=== PATIENT | male | born 1950 | race African-American/Black ===

== ENCOUNTER 2018-06-14 11:09 | Emergency (ER) | payer MEDICARE ==
[2018-06-14 12:10] LABS: #Lymphocytes 0.7 thou/uL (1.20-3.40); #Monocytes 0.3 thou/uL (0.11-0.59); %Basophils 0.1 % (0.0-1.0); %Eosinophils 0.2 % (0.0-10.0); %Lymphocytes 7.2 % (21.0-51.0); %Monocytes 2.8 % (0.0-10.0); %Neutrophils 89.7 % (42.0-75.0); Mean Corpuscular HGB CONC 32.2 g/dL (32.0-36.0); Mean Corpuscular Hemoglobin 26.9 pg (27.0-31.0); Mean Corpuscular Volume 83.3 fL (78.0-98.0); Mean Platelet Volume 7.9 fL (7.4-10.4); Platelet Count 243 thou/uL (130-400); RBC Distribution Width 12.9 % (11.5-14.5); Red Blood Cell (RBC) Count 4.45 mill/uL (4.70-6.10)
[2018-06-14 12:15] LABS: INR-International Normal Ratio 1.5; PTT 32.9 SEC (22.9-36.1)
[2018-06-14 12:31] LABS: ALT (SGPT) 11 U/L (8-55); AST (SGOT) 16 U/L (5-34); Albumin 3.9 g/dL (3.4-4.8); Alkaline Phosphatase 72 U/L (40-150); Anion Gap 18 mmol/L (10-20); BUN (Urea Nitrogen) 29 mg/dL (8.4-25.7); Bilirubin, Total 0.4 mg/dL (0.2-1.2); Calc. Creatinine Clearance 0 mL/min (70-130); Calcium 9.6 mg/dL (7.8-10.44); Carbon Dioxide 23 mmol/L (23-31); Chloride 98 mmol/L (98-107); Estimated GFR-MDRD 64; Globulin 3.2 g/dL (2.4-3.5); Glucose 108 mg/dL (80-115); Potassium 3.3 mmol/L (3.5-5.1); Protein, Total 7.1 g/dL (5.8-8.1); Sodium 136 mmol/L (136-145)
== END 2018-06-14 15:47 ==
LOC: ERS 11:09
DX: K59.00 Constipation, unspecified (principal); Z86.73 Personal history of transient ischemic attack (TIA), and cerebral infarction without residual deficits; I48.91 Unspecified atrial fibrillation; F32.9 Major depressive disorder, single episode, unspecified; Z87.891 Personal history of nicotine dependence; Z79.899 Other long term (current) drug therapy
CPT/HCPCS: 36415; 80053; 82274; 85025; 85610; 85730; 99285

== ENCOUNTER 2018-06-20 20:33 | Inpatient (IN) | payer MEDICARE ==
[2018-06-20 21:37] LABS: #Eosinphils 0.1 thou/uL (0.0-0.7); #Lymphocytes 1.5 thou/uL (1.20-3.40); #Monocytes 0.9 thou/uL (0.11-0.59); #Neutrophils 9.9 thou/uL (1.40-6.50); %Basophils 0.4 % (0.0-1.0); %Eosinophils 0.5 % (0.0-10.0); %Lymphocytes 12.4 % (21.0-51.0); %Monocytes 6.9 % (0.0-10.0); %Neutrophils 79.8 % (42.0-75.0); Hemoglobin 8.2 g/dL (14.0-18.0); Mean Corpuscular HGB CONC 32.5 g/dL (32.0-36.0); Mean Corpuscular Hemoglobin 27.5 pg (27.0-31.0); Mean Corpuscular Volume 84.4 fL (78.0-98.0); Mean Platelet Volume 9.2 fL (7.4-10.4); Platelet Count 307 thou/uL (130-400); Red Blood Cell (RBC) Count 2.99 mill/uL (4.70-6.10); White Blood Cell (WBC) Count 12.4 thou/uL (4.8-10.8)
[2018-06-20 21:59] LABS: ALT (SGPT) 10 U/L (8-55); AST (SGOT) 15 U/L (5-34); Albumin 3.2 g/dL (3.4-4.8); Alkaline Phosphatase 62 U/L (40-150); Anion Gap 17 mmol/L (10-20); BUN (Urea Nitrogen) 44 mg/dL (8.4-25.7); Bilirubin, Total 0.4 mg/dL (0.2-1.2); Calc. Creatinine Clearance 0 mL/min (70-130); Calcium 8.7 mg/dL (7.8-10.44); Carbon Dioxide 23 mmol/L (23-31); Chloride 101 mmol/L (98-107); Estimated GFR-MDRD 74; Globulin 2.8 g/dL (2.4-3.5); Glucose 109 mg/dL (80-115); Potassium 4.1 mmol/L (3.5-5.1); Sodium 137 mmol/L (136-145)
[2018-06-20] MEDS ORDERED: Pantoprazole 40 MG VIAL ONE (22:05)
[2018-06-20] MEDS ORDERED: Lorazepam 2 MG/ML VIAL ONE ×3 (22:05→22:58)
[2018-06-20] MEDS ORDERED: Lidocaine 4% Cream 5 GM TUBE w/ Tegaderm ONE (22:06)
[2018-06-20] MEDS ORDERED: Pantoprazole 80 MG, Admixture Fee 1 EACH in Sodium Chloride 0.9% 100 ML IVP SCH (22:30)
--- NOTE | 2018-06-20 22:34 | RAD ---
PORTABLE CHEST: HISTORY: Atrial fibrillation. FINDINGS: Heart size is enlarged. The aorta is tortuous. The lungs are clear of infiltrates. There are no si gns of failure. IMPRESSION: Marked cardiomegaly. POS: MACIE
[2018-06-20 23:10] LABS: INR-International Normal Ratio 1.6; PTT 31.1 SEC (22.9-36.1); Prothrombin Time 18.8 SEC (12.0-14.7)
[2018-06-20] MEDS ORDERED: Diltiazem 125 MG in Sodium Chloride 0.9% 100 ML IVPB SCH (23:30)
[2018-06-21 00:38] LABS: #Eosinphils 0.1 thou/uL (0.0-0.7); #Lymphocytes 3.5 thou/uL (1.20-3.40); #Monocytes 0.8 thou/uL (0.11-0.59); #Neutrophils 10.7 thou/uL (1.40-6.50); %Basophils 0.2 % (0.0-1.0); %Eosinophils 0.5 % (0.0-10.0); %Lymphocytes 23.1 % (21.0-51.0); %Monocytes 5.4 % (0.0-10.0); %Neutrophils 70.9 % (42.0-75.0); Hemoglobin 6.2 g/dL (14.0-18.0); Mean Corpuscular HGB CONC 33.4 g/dL (32.0-36.0); Mean Corpuscular Hemoglobin 28.1 pg (27.0-31.0); Mean Platelet Volume 8.1 fL (7.4-10.4); Platelet Count 305 thou/uL (130-400); RBC Distribution Width 12.7 % (11.5-14.5); Red Blood Cell (RBC) Count 2.22 mill/uL (4.70-6.10); White Blood Cell (WBC) Count 15.1 thou/uL (4.8-10.8)
[2018-06-21] MEDS ORDERED: HUMAN PROTHROMBIN COMPLX IV SCH (02:00)
--- NOTE | 2018-06-21 02:32 | CON ---
DATE OF CONSULTATION: REASON FOR CONSULT: Coffee-grounds emesis, drop in hemoglobin. HISTORY OF PRESENT ILLNESS: Mr. Santoyo is a 67-year-old gentleman who is transferred here from his snf for coffee-ground emesis, for possible GI bleeding. History comes from review of the chart, talking with the nurses and physicians in the ER, reviewing his records that were sent from the snf. The patient is aphasic and there are no family members or any other members to give any history. Mr. Santoyo apparently suffered a large CVA in 03/2018 in [place] I think, I cannot tell from the records, but in any event, he apparently received tPA at that time and had left MCA stroke with a SARI at that time showing EF of 40% to 45% and he had atrial fibrillation, this is all felt to be related to his atrial fibrillation. Ultimately, he had a PEG tube placed at that time, where 30-mm submucosal lesion was noted in the antrum that apparently was not bleeding, he was going to follow up with a furniture assembly supervisor. He discovered that after discharge, but has not, at least according to the records received. He did have an issue with cellulitis and he was intubated for a time for airway protection and ultimately at some point in time after going to rehab, was discharged to his snf. He first was seen at this facility on 06/14 when he was transferred for coffee-grounds emesis. At that time, he was on acetaminophen, amantadine, Eliquis, amlodipine, atorvastatin. Rectal exam was stable. Plain films showing no overt abnormalities, discharged to follow up with PCP and was diagnosed with constipation, likely until was not started on a PPI at that time. At that visit, his hemoglobin was 12. Reviewing the records from [place], he had a hemoglobin of 12.5 in March. Apparently this evening, reviewing the records from his snf, he was admitted there on 05/11. Here, he presented and was noted to be tachycardic and hypotensive in the 80s with pulse in the 170s and was found to be in atrial fibrillation, coffee-grounds emesis in his NG tube. He has had no further vomiting here and has no bowel movements. His hemoglobin, however, dropped to 8.2 from 12 on the . His white count was 12.4, platelet count was 307. INR was 1.6; BUN was 44, it was up from 29; creatinine was 1.9. Electrolytes were normal. Albumin was 3.2, protein was 6, his albumin was 3.9 previously. Troponin was 0.01. He was resuscitated with a 1.5 liter of fluids. His pressures stabilized in the 120s. He has been started on Cardizem and given medicines to decrease his heart rate, it still in the 160s. He is being admitted to the ICU. He has had no further signs of bleeding here. The patient is aphasic, can nod yes and no to questions such as abdominal pain, chest pain and nods no to both of those. PAST MEDICAL HISTORY: CVA, atrial fibrillation, hypertension, oropharyngeal dysphagia after stroke, for which he has had a PEG tube placed. PAST SURGICAL HISTORY: None otherwise. SOCIAL HISTORY: Former alcohol use, but has not drank for 30 years. Apparently used to smoke as well. On previous ER H and P notes, he has never used drugs. He can answer the question for me today. ALLERGIES: NONE KNOWN. MEDICATIONS: Medications at snf and rehab facility include; 1. MiraLAX. 2. Magnesium citrate. 3. Tylenol No.3 p.r.n. 4. Atorvastatin. 5. Melatonin. 6. Clonidine. 7. Buspirone. 8. Sertraline. 9. Amlodipine. 10. Lactobacillus. 11. Losartan. 12. Amantadine. 13. Apixaban. 14. Metoprolol. 15. Bisacodyl p.r.n. REVIEW OF SYSTEMS: Unable to obtain. PHYSICAL EXAMINATION: VITAL SIGNS: The patient is afebrile. Pulse is in the 160s and irregular with atrial fibrillation. Blood pressure is 120/60 presently. HEENT: His conjunctivae are pink. Sclerae clear. Oropharynx, no lesions. NECK: Supple. No adenopathy. LUNGS: Clear. HEART: Irregular rate and rhythm with tachycardia. No murmurs are heard. ABDOMEN: Soft, nontender with no bruits. Bowel sounds are positive, but hyperactive. There is no rebound or tenderness with no evidence of hernias. There is no palpable hepatosplenomegaly. The PEG tube is in place. There is some coffee-ground return there. EXTREMITIES: No clubbing, cyanosis, or edema. LABORATORY STUDIES: As per HPI. Chest x-ray shows marked cardiomegaly. ASSESSMENT: 1. Coffee-grounds emesis, not ongoing with significant drop in hemoglobin and elevated BUN suggestive of upper gastrointestinal bleed. He did have a submucosal mass on his EGD in [place] back in March and wonders if this could have eroded and bled. There are no signs of hemodynamic instability at this time. 2. Atrial fibrillation with rapid ventricular rate, still heart rate in the 160s. ER is working on improving this with medical management. He has ruled out for myocardial infarction at this time. He has a large heart on chest x-ray, but had a SARI with ejection fraction of 40% to 45% back in March. Recommendations at this time his atrial fibrillation needs to be controlled, he is going to receive some Kcentra as he is on anticoagulation, although not sure if this has had much effect. His renal function is stable with a GFR of 74, so it should not be an issue for Biaxin and toxicity. We will recommend PPI therapy either q.12 hours or via drip. If his hemoglobin were to drop below 7.5, I will consider transfusion in light of his history of cerebrovascular accident, unknown coronary status and aphasia with inability to tell if he is having any chest pain or pressure. We will plan endoscopy in the morning if there is any overt acute hemorrhage, we could embark on that earlier. We will follow along with you. Job ID: [id number]
[2018-06-21 08:13] LABS: #Basophils 0.1 thou/uL (0.0-0.2); #Eosinphils 0.1 thou/uL (0.0-0.7); #Monocytes 1.3 thou/uL (0.11-0.59); #Neutrophils 10.8 thou/uL (1.40-6.50); %Basophils 0.5 % (0.0-1.0); %Eosinophils 0.4 % (0.0-10.0); %Lymphocytes 19.8 % (21.0-51.0); %Monocytes 8.5 % (0.0-10.0); %Neutrophils 70.8 % (42.0-75.0); Hemoglobin 8.1 g/dL (14.0-18.0); Mean Corpuscular HGB CONC 33.8 g/dL (32.0-36.0); Mean Corpuscular Hemoglobin 29.3 pg (27.0-31.0); Mean Corpuscular Volume 86.6 fL (78.0-98.0); Mean Platelet Volume 7.9 fL (7.4-10.4); Platelet Count 264 thou/uL (130-400); RBC Distribution Width 13.6 % (11.5-14.5); Red Blood Cell (RBC) Count 2.77 mill/uL (4.70-6.10); White Blood Cell (WBC) Count 15.3 thou/uL (4.8-10.8)
[2018-06-21 08:38] LABS: Anion Gap 13 mmol/L (10-20); BUN (Urea Nitrogen) 56 mg/dL (8.4-25.7); Calc. Creatinine Clearance 0 mL/min (70-130); Calcium 8.1 mg/dL (7.8-10.44); Carbon Dioxide 23 mmol/L (23-31); Chloride 105 mmol/L (98-107); Estimated GFR-MDRD 73; Glucose 102 mg/dL (80-115); Potassium 3.7 mmol/L (3.5-5.1); Sodium 137 mmol/L (136-145)
[2018-06-21] MEDS ORDERED: KETAMINE 100 MG/ML (5ML VIAL) ONE (09:34)
[2018-06-21] MEDS ORDERED: Propofol 1,000 MG/100 ML VIAL IV PRN (10:50)
[2018-06-21] MEDS ORDERED: Fentanyl BOLUS 250 ML IVPB PRN (10:50)
[2018-06-21] MEDS ORDERED: Morphine 2 MG/ML SYRINGE SLOW IVP PRN (10:50)
[2018-06-21] MEDS ORDERED: Lorazepam 2 MG/ML VIAL SLOW IVP PRN (10:50)
[2018-06-21] MEDS ORDERED: DISCONTINUE PREVIOUS NARCOTIC PAIN MEDICATIONS AND BENZODIAZEPINES FS SCH (10:50)
[2018-06-21] MEDS ORDERED: Propofol BOLUS 1,000 MG/100 ML VIAL IV PRN (10:50)
[2018-06-21] MEDS ORDERED: fentaNYL Citrate/PF 2,000 MCG in Sodium Chloride 0.9% 60 ML IV SCH (10:50)
[2018-06-21] MEDS ORDERED: Morphine 4 MG/ML VIAL SLOW IVP PRN (10:51)
[2018-06-21] MEDS ORDERED: Fentanyl 100 MCG/2 ML VIAL ONE (11:27)
[2018-06-21 12:25] LABS: Actual Bicarbonate (HCO3a) 23.4 mEq/L (22-28); Base Excess (BEa) -1.7 mEq/L (-2.0 to +3.0); CO2 Tension 41.3 mmHg (35.0-45.0); Calcium, Ionized 1.03 mmol/L (1.12-1.30); Carboxyhemoglobin (COHb) 1.6 gm% (0.0-3.0); O2 Tension (PaO2) 102.1 mmHg (> 80.0); Potassium - ABG Lab 3.41 mmol/L (3.70-5.30); pH, Arterial 7.37 (7.35-7.45)
[2018-06-21] MEDS ORDERED: Metoprolol Tartrate 5 MG/5 ML VIAL ONE ×2 (12:26→15:47)
[2018-06-21 12:28] LABS: Puncture Site ALINE
[2018-06-21 12:29] LABS: ALV-art Gradient 131.475 (0-20)
[2018-06-21 12:46] VITALS: TEMP 97.9
[2018-06-21 13:01] LABS: Magnesium 1.9 mg/dL (1.6-2.6); Phosphorus 3.7 mg/dL (2.3-4.7)
[2018-06-21 13:48] VITALS: BP 136/67
[2018-06-21 16:10] LABS: Hemoglobin 7.8 g/dL (14.0-18.0); Mean Corpuscular HGB CONC 33.5 g/dL (32.0-36.0); Mean Corpuscular Hemoglobin 29.3 pg (27.0-31.0); Mean Corpuscular Volume 87.3 fL (78.0-98.0); Mean Platelet Volume 7.6 fL (7.4-10.4); Platelet Count 252 thou/uL (130-400); RBC Distribution Width 13.3 % (11.5-14.5); Red Blood Cell (RBC) Count 2.65 mill/uL (4.70-6.10); White Blood Cell (WBC) Count 18.3 thou/uL (4.8-10.8)
[2018-06-21 16:18] LABS: PT - Undiluted 15.9 SEC (12.0-14.7); PTT - Undiluted 29.8 SEC (22.9-36.1)
[2018-06-21] MEDS ORDERED: PHENYLEPHRINE-NS 100 MCG/ML 10 ML SYRINGE ONE (16:18)
[2018-06-21] MEDS ORDERED: EPINEPHrine 1 MG/10 ML Abboject SYRINGE ONE (16:18)
[2018-06-21] MEDS ORDERED: Succinylcholine Chloride 20 MG/ML 10 ml SYRINGE FS ONE (16:18)
[2018-06-21 16:22] LABS: ALT (SGPT) 11 U/L (8-55); AST (SGOT) 12 U/L (5-34); Albumin 2.9 g/dL (3.4-4.8); Alkaline Phosphatase 45 U/L (40-150); Anion Gap 13 mmol/L (10-20); BUN (Urea Nitrogen) 54 mg/dL (8.4-25.7); Bilirubin, Total 0.4 mg/dL (0.2-1.2); Calc. Creatinine Clearance 0 mL/min (70-130); Calcium 7.8 mg/dL (7.8-10.44); Carbon Dioxide 24 mmol/L (23-31); Chloride 106 mmol/L (98-107); Estimated GFR-MDRD 64; Globulin 2.3 g/dL (2.4-3.5); Glucose 125 mg/dL (80-115); Potassium 3.6 mmol/L (3.5-5.1); Protein, Total 5.2 g/dL (5.8-8.1); Sodium 139 mmol/L (136-145)
[2018-06-21 16:31] LABS: Anisocytosis SLIGHT = 6-15 cells (100X) (0-5/hpf); Band 3 % (5-11); Lymphocytes 3 % (21-51); MDiff Complete? YES; Monocytes 2 % (0-10); Neutrophil 92 % (42-75); PLT Morphology Comment Appears Adequate
[2018-06-21] MEDS ORDERED: Metoprolol Tartrate 5 MG/5 ML VIAL IVP PRN (16:39)
[2018-06-21] MEDS ORDERED: Metoprolol Tartrate 5 MG/5 ML VIAL IVP SCH (17:00)
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
[2018-06-21 18:15] LABS: PT 1:1 37C-90 min. Incubation 14.2 SEC; PTT 1:1 37C/90 MIN Incubation 30.2 SEC
--- NOTE | 2018-06-22 16:20 | OP ---
DATE OF PROCEDURE: 06/21/2018 PROCEDURES PERFORMED: Esophagogastroduodenoscopy. PRE-PROCEDURE DIAGNOSIS: Suspected upper gastrointestinal hemorrhage. POSTPROCEDURE DIAGNOSES: Upper gastrointestinal hemorrhage from submucosal mass, which has eroded into the lumen of the stomach. It is on the lesser curve side just at the incisura at estimated 3 cm in size. There is adherent clot, which we cannot completely remove. There is no active bleeding at this time. Epinephrine 7 mL were injected into the lesion and attempts were made to remove the clot, but due to the positioning of the lesion and its size and the adherence of the clot, it was not able to be removed to expose visible vessels. RECOMMENDATIONS: 1. General surgery consultation. 2. Continue ICU care. 3. Continue intubation. 4. Cardiology consultation just to assess surgical risk. 5. Blood bank has been notified to stay, had 2 units of blood at all times. 6. Protonix drip. 7. Kcentra not given last night as apparently the hospital does not have any platelets, FFP. Two units of blood ordered and started during endoscopy. ANESTHESIA: General endotracheal anesthesia was started by anesthesia. Two units of blood were transfused during procedure. FFP and platelets were ordered during procedure. PROCEDURE IN DETAIL: The patient's family was informed of the risks, benefits, possible complications of endoscopy including perforation, reaction to medication, and aspiration. Informed consent was obtained. The patient was brought to the endoscopy suite where he was intubated. line was placed to help manage his cardiovascular status. Once he was comfortable and airway was secured, the endoscope was advanced into the esophagus and stomach where a lot of old blood count was encountered in the antrum. About 300 mL of new and old clot were removed. There was a mass noted at the incisura about 3 cm in size. This correlates with the mass described on the outpatient records of a 3 cm submucosal antral mass that was noted at the time of his PEG was placed in [place] when he had a stroke back in March 2018. Once the clot was cleared, the duodenum was surveyed closely to the third portion. There was no active bleeding site here. Retroflexed view showed no active bleeding in the proximal stomach. There were some prominent submucosal areas in the proximal stomach. I thought these may be varices, but it was unclear. The lesion in question was evaluated. Clot was removed from it. It was injected with [id number] epinephrine 6 mL. Attempts for further removal of clot, treating underlying vessel were unsuccessful as the clot was densely adherent. There was no active bleeding. I brought General Surgery in the case to look at this and agreed this was likely a submucosal mass, which has eroded into the stomach, but this is not going to be something that can be controlled or treated endoscopically. Surgical retrieval may need to be considered difficult and the patient will be very high risk for surgery due to his severe morbidity with cardiac disease and prior cerebrovascular disease. At this point in time with no signs of active bleeding, the scope was removed. The patient tolerated the procedure well. He was brought to the recovery room where he is going to stay in ICU status. Job ID: [id number]
--- NOTE | 2018-06-22 22:36 | HP ---
REASON FOR ADMISSION/CHIEF COMPLAINT: Coffee-ground vomiting. HISTORY OF PRESENT ILLNESS: Mr. Santoyo is a 67-year-old Afro-Chinese male with past medical history of CVA, dysphagia, and PEG tube feeding, was found to have coffee-ground vomiting. The patient eats sometimes and gets PEG tube feedings sometimes. When the nurse tried to give feeding in the alf, had noticed a lot of coffee-ground material. The patient has a history of coffee-ground vomiting a week ago. The patient was seen in the ER and released, and he has developed the problem again, so in view of that the patient was sent to the hospital. The patient was in the hospital in [place] in March due to his acute CVA with left MCA stroke and aphasia. The patient had a PEG tube placed because of dysphagia at that time. The patient was also found to have chronic atrial fibrillation at that time. So , the patient was sent to [facility]. In the ER, the patient was evaluated and found to be in atrial fib with rapid ventricular rate, also initially hypotensive, had obvious coffee-ground vomitus. The patient was started on Cardizem infusion after a bolus. Initial hemoglobin was 8 g, which was much below the previous hemoglobin done a week ago, which was 12. The patient was given IV fluids and his repeat hemoglobin in 2 hours dropped to 6.2. The patient has been on Eliquis for his atrial fibrillation. A GI consult is being done. The patient is being stabilized and will be admitted to ICU. PAST MEDICAL HISTORY: 1. Acute CVA, left MCA with aphasia in March 2018. 2. Chronic atrial fibrillation. 3. Hypertension. 4. Dysphagia, status post PEG tube placement. CURRENT MEDICATIONS: The patient is on: 1. MiraLAX 17 g daily. 2. Amantadine 100 mg b.i.d. 3. Amlodipine 5 mg daily. 4. Eliquis 5 mg b.i.d. 5. Lipitor 40 mg daily. 6. BuSpar 10 mg b.i.d. 7. Losartan 50 mg daily. 8. Metoprolol 25 mg b.i.d. 9. Clonidine 0.1 q.6 p.r.n. 10. Melatonin 3 mg at bedtime. REVIEW OF SYSTEMS: Unable to obtain. The patient is unable to give history. He is aphasic. PHYSICAL EXAMINATION: GENERAL: The patient is awake and alert, not communicating. VITAL SIGNS: Temperature 98, pulse 120 to 160, respirations 20, blood pressure 120/60. HEENT: Head is normocephalic and atraumatic. Pupils are equal and reactive. Nasopharynx is pale and dry. Hard and soft palate, no lesions. SKIN: Turgor is decreased. NECK: Supple. No JVD. LUNGS: Bilateral air entry. No rales. No rhonchi. HEART: S1 and S2. Irregularly irregular. ABDOMEN: Soft. No distention. No tenderness. Bowel sounds present. PEG tube in place. CENTRAL NERVOUS SYSTEM: Right hemiparesis. LABORATORY DATA: CBC with WBC 12, hemoglobin 8.2, hematocrit 25, platelets 307. Prothrombin time 18 and INR 1.6. Metabolic panel; sodium 137, potassium 4, chloride 101, CO2 and 23, urea nitrogen 44, creatinine 1.1, glucose 109. Chest x-ray negative. EKG showed atrial fibrillation with heart rate of 140. No acute ST-T changes seen. ASSESSMENT: 1. Acute upper gastrointestinal bleeding. 2. Atrial fibrillation with rapid ventricular rate. 3. Anemia secondary to #1. 4. Status post cerebrovascular accident in left middle cerebral artery with aphasia. 5. hypertension PLAN: 1. Vital signs q.4. 2. Activity: As tolerated. 3. Allergies: NKDA. 4. IV fluids, normal saline at 800 mL/h. 5. Transfuse 2 units of packed red blood cells. 6. GI consult. 7. Cardizem infusion at 5 mL/h. 8. Hold alf medications. 9. Condition: Critical. The patient will be admitted to CCU for close monitoring. Job ID: [id number] [facility]
[2018-06-23 12:10] LABS: Actual Bicarbonate (HCO3a) 19.9 mEq/L (22-28); Analyzer IN Cardio OR; CO2 Tension 41.6 mmHg (35.0-45.0); Calcium, Ionized 1.02 mmol/L (1.12-1.30); Carboxyhemoglobin (COHb) 0.8 gm% (0.0-3.0); Hemoglobin (Hb) 6.7 g/dL (14.0-18.0); O2 Tension (PaO2) 390.1 mmHg (> 80.0); Potassium - ABG Lab 3.48 mmol/L (3.70-5.30)
[2018-06-23 12:16] LABS: Puncture Site ALINE
== END 2018-06-22 08:20 | disposition short-term general hospital (02) | DRG 379 ==
LOC: ERS 20:33 → ERHOLD 23:37
PROVIDERS: ADMIT Internal Medicine; ATTEND Internal Medicine
PROC: 0DC98ZZ Extirpation of Matter from Duodenum, Via Natural or Artificial Opening Endoscopic (ICD-10-PCS; principal; 2018-06-21)
DX: K92.2 Gastrointestinal hemorrhage, unspecified (principal); I48.2 Chronic atrial fibrillation; Z79.01 Long term (current) use of anticoagulants; D64.9 Anemia, unspecified; I10 Essential (primary) hypertension; E11.9 Type 2 diabetes mellitus without complications; Z86.73 Personal history of transient ischemic attack (TIA), and cerebral infarction without residual deficits; Z93.1 Gastrostomy status
CPT/HCPCS: 36415; 36416; 36430; 71045; 80048; 80053; 80500; 82805; 83735; 84100; 84443; 84484; 85025; 85610; 85611; 85730; 85732; 86850; 86900; 86901; 93005; 94002; C9113; C9132; J0171; J2060; J2270; J3010; J7050; P9016; P9035; P9059

== ENCOUNTER 2018-12-10 16:01 | Inpatient (IN) | payer MEDICAID, OTHER ==
[2018-12-10 16:50] LABS: #Lymphocytes 0.8 thou/uL (1.20-3.40); #Monocytes 0.5 thou/uL (0.11-0.59); #Neutrophils 9.2 thou/uL (1.40-6.50); %Basophils 0.2 % (0.0-1.0); %Eosinophils 0.1 % (0.0-10.0); %Lymphocytes 7.8 % (21.0-51.0); %Monocytes 4.5 % (0.0-10.0); %Neutrophils 87.4 % (42.0-75.0); Hemoglobin 5.1 g/dL (14.0-18.0); Mean Corpuscular HGB CONC 31.1 g/dL (32.0-36.0); Mean Corpuscular Hemoglobin 23.1 pg (27.0-31.0); Mean Corpuscular Volume 74.2 fL (78.0-98.0); Platelet Count 273 thou/uL (130-400); RBC Distribution Width 15.1 % (11.5-14.5); Red Blood Cell (RBC) Count 2.21 mill/uL (4.70-6.10); White Blood Cell (WBC) Count 10.5 thou/uL (4.8-10.8)
[2018-12-10 17:14] LABS: ALT (SGPT) 12 U/L (8-55); AST (SGOT) 13 U/L (5-34); Albumin 3.5 g/dL (3.4-4.8); Alkaline Phosphatase 90 U/L (40-150); Anion Gap 11 mmol/L (10-20); BUN (Urea Nitrogen) 24 mg/dL (8.4-25.7); Bilirubin, Total 0.2 mg/dL (0.2-1.2); Calc. Creatinine Clearance 0 mL/min (70-130); Calcium 9.1 mg/dL (7.8-10.44); Carbon Dioxide 32 mmol/L (23-31); Chloride 103 mmol/L (98-107); Estimated GFR-MDRD 70; Globulin 2.8 g/dL (2.4-3.5); Glucose 140 mg/dL (80-115); Lipase 19 U/L (8-78); Protein, Total 6.3 g/dL (5.8-8.1); Sodium 142 mmol/L (136-145)
[2018-12-10 17:24] LABS: Anisocytosis SLIGHT = 6-15 cells (100X) (0-5/hpf); Hypochromia SLIGHT = 6-15 cells (100X) (0-5/hpf); MDiff Complete? YES; Microcytosis SLIGHT = 6-15 cells (100X) (0-5/hpf); Platelet Morphology Comment Appears Adequate; Polychromasia MODERATE = 3-4 cells (100X) (0-2/hpf); Schistocytes SLIGHT = 2-5 cells (100X) (0-1/hpf); Spherocytes SLIGHT = 1-5 cells (100X) (None Seen)
[2018-12-10] MEDS ORDERED: Pantoprazole 40 MG VIAL ONE (19:31)
[2018-12-10] MEDS ORDERED: Ondansetron PF 4 MG/2 ML Vial IVP PRN (20:05)
[2018-12-10] MEDS ORDERED: Acetaminophen 650 MG Suppository PR PRN (20:05)
[2018-12-10] MEDS ORDERED: Lorazepam 2 MG/ML VIAL SLOW IVP PRN (20:07)
[2018-12-10] MEDS ORDERED: Pantoprazole 40 MG VIAL IVP SCH (21:00)
--- NOTE | 2018-12-10 21:15 | HP ---
PRIMARY CARE PROVIDER: Juan Carlos Mcnulty MD CHIEF COMPLAINT: Vomiting. HISTORY OF PRESENT ILLNESS: This is a 68-year-old male with history of an MCA stroke in 03/2018 and right hemiparesis and aphasia, hypertension, a GI bleed with hospitalization here in 05/2018 who was transferred to [facility] and by report of the son that bleeding subsequently stopped and no surgery was performed, submucosal mass with ulceration into the stomach, chronic atrial fibrillation on full anticoagulation, who presents to the emergency room with a complaint of vomiting. Due to the patient's condition, all history is obtained from the son. He reports that the snf informed him that the patient started vomiting yesterday and it continued today. For that reason, the patient was transferred here. No other history surrounding the vomiting is obtained. The son reports that back in 05/2018, when the patient had a GI bleed, it was attributed to a submucosal tumor with ulceration into the stomach. The patient was evaluated with endoscopy by GI, as well as by General Surgery. In discussion with the family, it was requested that the patient transfer to [facility] for surgery, which was performed. The son only reports that no surgery was performed, for reasons he is unaware. He does not know when the Eliquis was restarted for anticoagulation, it is on the patient's medication list. The patient at baseline has confusion. The son reports it is worsening today. At best he can say a few words, and he requires total care at the snf facility. The patient was evaluated in the emergency room, received 40 mg of IV Protonix, 2 units of packed red blood cells were ordered, and hospitalist called for admission. REVIEW OF SYSTEMS: Unobtainable. MEDICATIONS: Reviewed on the medication list. 1. Enteral feeds, Nutren 2.0 every 4 hours. 2. Magnesium 400 mg per 5 mL, and he receives 30 mL every 12 hours as needed for constipation. 3. Melatonin 3 mg two tablets at night. 4. Metoprolol 100 mg b.i.d. 5. Zofran 4 mg q.6 hours p.r.n. 6. MiraLAX 17 g daily. 7. Tylenol No.3 three times daily. 8. Amantadine 50 mg per 5 mL, 10 mL b.i.d. 9. Eliquis 5 mg b.i.d. 10. Atorvastatin 40 mg daily. 11. Melatonin 6 mg at bedtime. 12. Buspirone 5 mg t.i.d. 13. Sertraline 50 mg daily. 14. Losartan 50 mg daily. 15. Furosemide 20 mg daily. 16. Gabapentin 300 mg b.i.d. 17. Bisacodyl per rectum at bedtime p.r.n. constipation. 18. Lactobacillus b.i.d. 19. Lamisil topical to his nails. PAST MEDICAL HISTORY: Reviewed on his last H and P show, 1. Acute upper GI bleed with hospitalization here in 05/2018 secondary to submucosal mass with ulceration into the stomach. 2. Chronic atrial fibrillation, now on full anticoagulation. 3. Anemia secondary to history of GI bleed. 4. History of left MCA stroke with aphasia and right hemiparesis. 5. Hypertension. PAST SURGICAL HISTORY: PEG tube. Further surgical history is not available on his last H and P. FAMILY HISTORY: Unable to obtain. SOCIAL HISTORY: The patient lives at a nursing facility. Code status is full, confirmed with the patient's son. ALLERGIES: NONE KNOWN per chart review. PHYSICAL EXAMINATION: VITAL SIGNS: 126/76 P81 R20 T98.5 100% on room air. GENERAL: The patient's eyes are open. Head moves around. He does have a right hemiparesis. He is not in apparent distress. HEENT: Pupils are equal and round. The patient not following commands. Unable to inspect his mouth. NECK: Supple and nontender. LYMPHATICS: No palpable cervical or supraclavicular lymphadenopathy. LUNGS: Clear to auscultation bilateral. No audible wheezing, rhonchi, or rales. HEART: Normal S1 and S2. Regular rate and rhythm. No audible murmurs. ABDOMEN: Soft with present bowel sounds. Nontender. Nondistended. EXTREMITIES: No clubbing, cyanosis, or edema. SKIN: No visible rashes. NEUROLOGIC: Right hemiparesis. The patient is aphasic. PSYCH: Unable to adequately assess. VASCULAR: 2+ dorsalis pedis pulses. LABORATORY DATA: Reviewed. CBC 10.5, 5.1, 16.4, 273 with 87% neutrophils. Chemistry 142, 4.0, 103, 32, 24, 1.25, 140. LFTs negative. Troponin negative. IMPRESSION: 1. Vomiting concerning for gastrointestinal bleed given this new acute anemia. 2. History of gastrointestinal bleed secondary to a submucosal tumor with erosion into the stomach, and prior hospitalization was transferred to [facility] unknown events that occurred there. 3. Chronic atrial fibrillation on full anticoagulation. 4. Hypertension, unknown control. 5. History of stroke with right hemiparesis and aphasia. PLAN: 1. Admission to the IMCU, given the significant anemia, need for close monitoring. 2. Proceed with 2 units of packed red blood cells, gentle IV fluid hydration, continue IV Protonix. 3. Consults to both GI and General Surgery. Given the patient's history from back in May and reported no intervention. 4. Hold all anticoagulation in addition to aspirin. 5. N.p.o., hold all home medications for now. Monitor vital signs. 6. The patient is on a beta samuel, monitor for rebound tachycardia, avoiding beta blockade for now, given the concern for GI bleed. 7. Palliative care consult given the current difficult situation including the patient's medical comorbidities. 8. Obtain records from [facility] to understand what transpired with that transfer back in May. 9. DVT prophylaxis with pneumatic compression devices. 10. GI prophylaxis addressed above. 11. Code status is full. Surrogate decision maker is the patient's son. 12. The patient is at high risk given age, comorbidities, and current presentation. 13. Reviewed the plan of care with the patient's son. No questions or further needs at the end of evaluation. Job ID: [id number] [facility]
[2018-12-10] MEDS: NS 0.9% w/ 20 MEQ KCL 1,000 ML/1,000 ML BAG IV SCH (23:09)
[2018-12-10] MEDS: Pantoprazole 40 MG VIAL IVP SCH (23:09)
--- NOTE | 2018-12-11 05:19 | CON ---
DATE OF CONSULTATION: REASON FOR CONSULT: Presumed upper GI bleed. HISTORY OF PRESENT ILLNESS: Mr. Santoyo is a 68-year-old man with dense aphasia and hemiparesis following a stroke related to atrial fibrillation. He was admitted to the hospital last May hemodynamically unstable due to a brisk upper GI bleed. This was found to be from an ulceration over a submucosal mass in the antrum of his stomach near the incisura. He was resuscitated and transfused, and transferred to [place] for possible antrectomy or resection of mass, but apparently did not undergo surgery. The details of that admission are not available to me. He was restarted on his Eliquis and presented back to the hospital with nausea and vomiting of several days' duration and severe anemia with a hemoglobin of 5.1. The patient is aphasic and none of the family members are at the bedside, so history is obtained by chart review and also asking the patient yes/no questions, which he is able to answer. He states the nausea and vomiting has been going on for about 4 days. He has not seen any lukas blood in the emesis or any coffee-grounds. He denies a black color or blood in his stool. He denies any chest pain or shortness of breath. He states that his abdomen does hurt a little, but it is not tender to palpation. PAST MEDICAL HISTORY: Atrial fibrillation, submucosal gastric mass, CVA with right hemiparesis and dense expressive aphasia, hypertension, and presenting with anemia. PAST SURGICAL HISTORY: PEG tube. The patient does have a midline incision, but is unable to give me any history of what that particular surgery was from, it does not appear to be a new incision. His family is not available to elucidate. OUTPATIENT MEDICATIONS: According to the chart include; 1. Eliquis, which was restarted at an unknown date. 2. Metoprolol. 3. Melatonin. 4. Magnesium. 5. Zofran. 6. MiraLAX. 7. Amantadine. 8. Atorvastatin. 9. Buspirone. 10. Sertraline. 11. Losartan. 12. Lasix. 13. Gabapentin. 14. Dulcolax. 15. Lactobacillus. 16. Lamisil. ALLERGIES: NO KNOWN DRUG ALLERGIES. REVIEW OF SYSTEMS: Limited by the patient's dense aphasia, that is as per HPI. SOCIAL HISTORY: Per chart, he is a full code. Lives at [place] [facility]. Alcohol, tobacco, and drug use is known. PHYSICAL EXAMINATION: VITAL SIGNS: The patient is afebrile. Heart rate 93, blood pressure 155/95, respirations 16, O2 sats 94% on room air. GENERAL: Reveals a pleasant elderly gentleman, who is answering yes/no questions appropriately. HEENT: Unremarkable. NECK: Supple without lymphadenopathy or thyroid nodules. HEART: Regular in its rate and rhythm. I do not appreciate any murmurs, rubs, or gallops. LUNGS: Clear to auscultation bilaterally. ABDOMEN: Soft, nontender, nondistended with normal bowel sounds. He has a healed midline incision without palpable masses or hernias. EXTREMITIES: Warm and well perfused without edema. NEUROLOGIC: Hemiparesis and expressive aphasia. LABORATORY DATA: White count is normal at 10.5, hemoglobin 5.1, hematocrit is 16, platelets 273. BUN and creatinine are 24 and 1.25. LFTs are normal. Glucose is 140. ASSESSMENT AND PLAN: Severe anemia with recent nausea and vomiting, most likely recurrent upper gastrointestinal bleeding, although none witnessed. The patient, on questioning, still has some slight nausea, so I have asked the nurses to flush his PEG tube and place it to drain. We can observe the output for any evidence of ongoing bleeding, but the drainage in the tubing is not bloody. He has received 1 unit of blood in the emergency room and I ordered a second unit for tonight after which we will recheck his blood levels. His Eliquis is being held for obvious reasons. We are trying to find out why he did not undergo any surgical intervention in [place] during his last admission. Reportedly, the family was unsure what the decision making process was. 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 It is also possible that the ulceration overlying the mass has healed and that he has another source of bleeding. Gastroenterology has been consulted. He is hemodynamically stable and basically asymptomatic from his anemia, which leads me to believe that this is a lower process than the last time he presented. He is going to be closely observed in the intermediate care unit and will likely undergo a repeat endoscopy to further elucidate the source of the bleeding. I do not plan any emergent surgical intervention at this time. Job ID: [id number]
[2018-12-11 06:29] LABS: Band 2 % (5-11); Hemoglobin 7.4 g/dL (14.0-18.0); Hypochromia MODERATE=16-30 cells (100X) (0-5/hpf); Lymphocytes 15 % (21-51); MDiff Complete? YES; Mean Corpuscular HGB CONC 33.2 g/dL (32.0-36.0); Mean Corpuscular Hemoglobin 25.5 pg (27.0-31.0); Mean Corpuscular Volume 76.8 fL (78.0-98.0); Mean Platelet Volume 8.1 fL (7.4-10.4); Microcytosis SLIGHT = 6-15 cells (100X) (0-5/hpf); Monocytes 5 % (0-10); Neutrophil 78 % (42-75); Platelet Count 283 thou/uL (130-400); Platelet Morphology Comment Appears Adequate; RBC Distribution Width 16.4 % (11.5-14.5); Red Blood Cell (RBC) Count 2.89 mill/uL (4.70-6.10); Target Cells SLIGHT = 2-5 cells (100X) (0-1/hpf); White Blood Cell (WBC) Count 11.4 thou/uL (4.8-10.8)
[2018-12-11 06:38] LABS: Anion Gap 11 mmol/L (10-20); BUN (Urea Nitrogen) 23 mg/dL (8.4-25.7); Calc. Creatinine Clearance 73 mL/min (70-130); Calcium 8.9 mg/dL (7.8-10.44); Carbon Dioxide 30 mmol/L (23-31); Chloride 106 mmol/L (98-107); Estimated GFR-MDRD 69; Glucose 87 mg/dL (80-115); Potassium 3.9 mmol/L (3.5-5.1); Sodium 143 mmol/L (136-145)
--- NOTE | 2018-12-11 08:11 | PDOC.PN ---
- Subjective Encounter Start Date: 12/11/18 (f/u anemia) Encounter Start Time: 08:09 Subjective: No o/n events, pt demonstrating pain this morning - turns head to -: left arm. No blood visualized in drain to PEG tube - Objective Resuscitation Status - Order Detail: 12/10/18 20:05 Resuscitation Status Routine Resuscitation Status: FULL: Full Resuscitation Discussed with: son, and on NH record Vital Signs & Weight: Vital Signs (12 hours) Temp Pulse Ox 12/11/18 07:15 98.0 F 12/11/18 04:00 98.1 F 12/11/18 02:15 97.8 F 12/11/18 00:00 98.2 F 12/10/18 23:40 97.6 F 12/10/18 23:25 97.8 F 12/10/18 22:51 97.7 F 12/10/18 22:20 100 Weight Weight 202 lb 8 oz Most Recent Monitor Data Heart Rate from ECG 82 NIBP 145/73 NIBP BP-Mean 97 Respiration from ECG 18 SpO2 95 I&O: 12/10/18 12/11/18 12/12/18 06:59 06:59 06:59 Intake Total 659 Output Total 25 Balance 634 Result Diagrams: 12/11/18 05:58 12/11/18 05:58 EKG Reviewed by me: Yes (a fib with rate in 80-90's and pvc's) Phys Exam - Physical Examination Constitutional: NAD Respiratory: no wheezing, no rhonchi decreased breath sounds at bases Cardiovascular: RRR, no significant murmur Gastrointestinal: soft, non-tender, no distention, positive bowel sounds yellow fluid draining from PEG tube right hemiparesis and aphasia Deviation from normal: moves head around, no change noted from yesterday Skin: no rash Dx/Plan (1) Anemia Code(s): D64.9 - ANEMIA, UNSPECIFIED Status: Acute Qualifiers: Other causes of anemia: acute posthemorrhagic (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 - NEOPLASM OF UNSPECIFIED BEHAVIOR OF DIGESTIVE SYSTEM Status: Chronic (3) Chronic atrial fibrillation Code(s): I48.2 - CHRONIC ATRIAL FIBRILLATION Status: Chronic (4) Hypertension Code(s): I10 - ESSENTIAL (PRIMARY) HYPERTENSION Status: Chronic Qualifiers: Hypertension type: essential hypertension Qualified Code(s): I10 - Essential (primary) hypertension (5) Right hemiparesis Code(s): G81.91 - HEMIPLEGIA, UNSPECIFIED AFFECTING RIGHT DOMINANT SIDE Status : Chronic (6) Aphasia Code(s): R47.01 - APHASIA Status: Chronic (7) Chronic pain Code(s): G89.29 - OTHER CHRONIC PAIN Status: Chronic Qualifiers: Chronic pain type: other chronic pain Qualified Code(s): G89.29 - Other chronic pain - Plan * Hemoglobin improved, no overt signs of active or brisk bleeding. Given hb of only 7.4 - will transfuse an additional 1 unit today * 20 mg IV lasix now due to decreased breath sounds at bases * hold IVF with transfusion * no anticoagulation * Appreciate Gen Surg consults - no interventions planned * GI consult given history of gastric bleeding * continue IV protonix * hold home meds until cleared for PEG tube use * chronic pain on TID tylenol 3 at [place] - will start low dose morphine prn * * pall care consult as they are available to assist with goals of care * * dvt prophy - scd's * gi prophy - on BID PPI IV * code status full.
[2018-12-11] MEDS ORDERED: Morphine 2 MG/ML SYRINGE SLOW IVP PRN (08:15)
[2018-12-11] MEDS ORDERED: Furosemide 20 MG/2 ML VIAL SLOW IVP SCH (08:15)
[2018-12-11] MEDS: Sodium Chloride 0.9% (PF) 10 ML VIAL FS PRN (08:37)
[2018-12-11] MEDS: Pantoprazole 40 MG VIAL IVP SCH ×2 (08:37→21:46)
[2018-12-11] MEDS ORDERED: PROPOFOL 200 MG/20 ML VIAL ONE (09:56)
[2018-12-11] MEDS ORDERED: Lidocaine 1% PF 5 ML VIAL ONE (09:56)
[2018-12-11] MEDS: Morphine 4 MG/ML VIAL SLOW IVP PRN ×2 (12:41→21:47)
--- NOTE | 2018-12-11 13:16 | CON ---
DATE OF CONSULTATION: 12/11/2018 REASON FOR CONSULTATION: Nausea, vomiting, and anemia. CONSULTING PHYSICIAN: Dr. Ant Fuentes. HISTORY OF PRESENT ILLNESS: The patient is a 68-year-old male with past medical history of MCA stroke in 03/2018 with residual right-sided hemiparesis and aphasia, hypertension, and GI bleed most likely due to a GI stromal tumor in 05/2018, presenting with complaints of nausea, vomiting, and anemia. Upon interviewing the patient, given his aphasic status and there is some question about altered mental status, he was unable to contribute meaningful information to the interview with no family present at the time of this interview, so most of the information was obtained via chart review. According to the chart, the patient was seen in the hospital in 05/2018 for complaints of GI bleeding, for which he ultimately underwent an EGD with the findings of a submucosal ulcerated mass within the incisura of the stomach, that was intervened upon with epinephrine injection and cautery, but the bleeding was unable to be adequately stopped. He was subsequently transferred to [place] for further definitive management. However, at that time, it is unclear as to what happened, but apparently the patient did not receive surgery for this particular lesion and was ultimately placed back on anticoagulation. Now, the patient is currently coming in with complaints of nausea and vomiting that has been present for the last 24-48 hours. With continued nausea and vomiting, he was transferred from the shelter to [facility] ER for further evaluation. While he was being evaluated in the ER, he was noted to have a significantly decreased H and H. Upon interview with the family and per chart review, it seems that the patient has not had any observed evidence of hematemesis, melena, or hematochezia that would contribute to this significant anemia. Otherwise, with nausea and vomiting, it has been consisting primarily of nonbloody emesis, and per nursing staff, he has not had any further episodes of vomiting since he has been admitted to the hospital. He has also not had a bowel movement since his admission either. REVIEW OF SYSTEMS: A 10-category review of systems could not be obtained due to the patient's altered mental status and aphasia status. PAST MEDICAL HISTORY: As per HPI. PAST SURGICAL HISTORY: 1. PEG tube placement. 2. Midline incision of the abdomen, but unknown surgery. FAMILY HISTORY: No mention of GI malignancies in the chart. SOCIAL HISTORY: No mention of alcohol, tobacco, or illicit drug use. Currently residing in a shelter. OUTPATIENT MEDICATIONS: Reviewed. ALLERGIES: NO KNOWN DRUG ALLERGIES. PHYSICAL EXAMINATION: VITAL SIGNS: Temperature 98.1, pulse 83, blood pressure 148/74, respiratory rate 16, and saturating 100% on room air. GENERAL: The patient was lying in bed, in no acute distress. He does not contribute any verbal information and is able to nod his head affirmatively and negative only. However, the patient is alert, although only oriented to self. HEENT: Normocephalic and atraumatic. Neck is supple. No JVD or scleral icterus noted. CARDIOVASCULAR: Regular rate and rhythm, but with some evidence of premature PACs. No discernable murmurs, gallops, or rubs. RESPIRATORY: Clear to auscultation bilaterally with no discernable wheezes or rales. ABDOMEN: Normoactive bowel sounds. Soft, nontender, and nondistended. Has a well-healed midline incision. EXTREMITIES: No cyanosis, clubbing, or edema. LABORATORY DATA: CBC with a white blood cell count of 11.4, hemoglobin 7.4, hematocrit 22.2, and platelets 283. Chemistry with a sodium of 143, potassium 3.9, chloride 106, CO2 of 30, BUN 23, creatinine 1.26, and glucose 87. IMAGING DATA: No current GI imaging is available for review. However, EGD performed on 06/21/2018 showed a submucosal mass, which had eroded into the lumen of the stomach on the lesser curvature at the incisura and measured an estimated size of 3 cm. There was adherent clot, which could not be completely removed, to intervene upon the vessel underneath. Epinephrine was injected around the lesion, but it appears the good hemostasis was not necessarily achieved. 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 1. Nausea and vomiting: The patient is presenting with acute onset of nausea and vomiting over the last 24-48 hours, characterized as multiple episodes of nonbloody emesis at the shelter and here in the ER. However, since being transferred to the [facility], he has not had any further episodes of emesis nor has he had any observed episodes of hematemesis. At this point, the etiology for his nausea and vomiting is unknown, but given his history of a gastrointestinal stromal tumor, extension of this particular lesion could potentially be contributing what is going on. Recommendations: a. We would continue the patient on n.p.o. status in anticipation for procedure later today. b. We will perform EGD later today for intraluminal evaluation. c. We will continue with aggressive antiemetic support. 2. Anemia/gastrointestinal stromal tumor: The patient is presenting with a history of a submucosal lesion that eroded into the stomach in 05/2018. This was attempted to be intervened upon via upper endoscopy, but was unsuccessful in achieving definitive hemostasis. He was subsequently transferred to [place] for surgery, but apparently no surgery was actually performed, and for unknown reasons, his anticoagulation was restarted in the meantime. He is now presenting with a significant anemia on admission without any observed evidence of overt gastrointestinal bleeding with the gastrointestinal stromal tumor being the more likely source of continued bleeding. However, at this point, given the lack of overt bleeding anywhere, a lower gastrointestinal bleed cannot be ruled out at this time. Recommendations: a. We would continue the patient n.p.o. in anticipation for the esophagogastroduodenoscopy later today. b. We will perform the esophagogastroduodenoscopy for evaluation of the gastrointestinal stromal tumor. If the upper endoscopy is negative, we would then consider colonoscopy to be scheduled for tomorrow for further evaluation of his symptomatic anemia. c. We will continue to trend H and H and transfuse as necessary to maintain an H and H of 7/. d. We will continue to monitor clinically for signs of active gastrointestinal bleeding. e. I agree with continuation of the patient on pantoprazole 40 mg b.i.d. in light of possible upper gastrointestinal bleed. We will continue to follow. Please call with any questions. Job ID: [id number]
[2018-12-11 13:43] LABS: Hemoglobin 7.9 g/dL (14.0-18.0)
--- NOTE | 2018-12-11 16:45 | EKG ---
Test Reason : Blood Pressure : / mmHG Vent. Rate : 079 BPM Atrial Rate : 085 BPM P-R Int : 000 ms QRS Dur : 098 ms QT Int : 398 ms P-R-T Axes : 000 -20 064 degrees QTc Int : 456 ms Atrial fibrillation Nonspecific ST and T wave abnormality Abnormal ECG Confirmed by RONNY CARNEY ([id number]), technical writer and editor MARTINA PACHECO ([id number]) on 12/11/2018 4:45:16 PM Referred By: Confirmed By:RONNY CARNEY
--- NOTE | 2018-12-11 20:30 | OP ---
DATE OF PROCEDURE: 12/11/2018 PROCEDURE PERFORMED: EGD (diagnostic). INDICATIONS FOR PROCEDURE: Significant anemia, prior history of GI stromal tumor in the stomach. DESCRIPTION OF PROCEDURE: After the risks and benefits of the procedure were explained to the patient's surrogate including risks of bleeding, infection, perforation, reactions to anesthesia, aspiration and/or pain, informed consent was obtained. The patient was then taken to the endoscopy suite, where deep sedation was administered via propofol and anesthesia support. Once adequate sedation was achieved, the standard gastroscope was introduced into the mouth with intubation of the esophagus, stomach, and the proximal small intestines with the findings listed below. The patient tolerated the procedure well with no immediate perioperative complications. Upon completion of the procedure, all equipment was removed from the patient and the patient was taken to PACU in satisfactory condition. FINDINGS: Esophagus: Normal-appearing mucosa was seen in the proximal, mid, and distal esophagus. There was no evidence of erosions, ulcerations, mass lesions, or active/recent bleeding. Stomach: Normal-appearing mucosa was seen in the gastric cardia, fundus, body, greater curvature, and antrum. The PEG tube was seen along the greater curvature in the gastric body with no mucosal breakdown or purulence immediately surrounding the site nor was there any evidence of active/recent bleeding. An approximately 2 cm polypoid lesion was seen along the lesser curvature/incisura that was semipedunculated in appearance, but did not exhibit any evidence of active/recent bleeding. With visualization of the entire gastric mucosa, there was no evidence of bleeding or blood clot at all. Duodenum: Normal-appearing mucosa was seen in the duodenal bulb and second portion of the duodenum. There was no evidence of erosions, ulcerations, mass lesions, or active/recent bleeding. IMPRESSION: 1. A 2 cm polypoid semipedunculated lesion along the lesser curvature consistent with the patient's known gastrointestinal stromal tumor. 2. PEG tube placement intact along the greater curvature in the gastric body. 3. No etiology for the patient's anemia was seen during this examination. RECOMMENDATIONS: 1. We would continue to trend H and H and transfuse as necessary to maintain an H and H of 7/21. 2. We would continue to monitor clinically for signs of active GI bleeding. 3. Given the negative results on upper endoscopy today, no etiology for the patient's anemia is seen thus far. I would then proceed with colonoscopy for evaluation of the lower GI tract and possible bleeding source there. We would prep the patient tonight with GoLYTELY in anticipation of the procedure tomorrow morning. Please make the patient n.p.o./PEG tube except for medications. We will continue to follow. Please call with any questions. Job ID: [id number]
[2018-12-11] MEDS ORDERED: GoLYTELY 4,000 ml Bottle PER TUBE SCH (21:15)
--- NOTE | 2018-12-11 21:17 | PDOC.GSPN ---
Surgery Progress Note: Subj - Subjective Narrative: The ulcerated mucosa overlying the patient's gastric mass has healed. No source of bleeding was found in the stomach and gastroenterology plan is to proceed with colonoscopy tomorrow. No new surgical recommendations. Surgery Progress Note: Obj - Vital signs Vital signs: Vital Signs - Most Recent Temp Pulse Resp BP Pulse Ox 98.3 F 100 12/11/18 20:20 12/10/18 22:20 Surgery Progress Note: Results - Labs Result Diagrams: 12/11/18 13:36 12/11/18 05:58 Lab results: Laboratory Results - last 24 hr 12/10/18 12/11/18 17:09 13:36 Hgb 7.9 L Hct 25.2 L Blood Type O POSITIVE Antibody Screen NEGATIVE Crossmatch See Detail
[2018-12-11 21:19] LABS: Hemoglobin 7.8 g/dL (14.0-18.0)
[2018-12-11] MEDS: NS 0.9% w/ 20 MEQ KCL 1,000 ML/1,000 ML BAG IV SCH (21:49)
[2018-12-12] MEDS: Morphine 4 MG/ML VIAL SLOW IVP PRN ×3 (01:06→13:10)
[2018-12-12 04:43] LABS: #Lymphocytes 1.3 thou/uL (1.20-3.40); #Monocytes 0.7 thou/uL (0.11-0.59); %Basophils 0.3 % (0.0-1.0); %Eosinophils 0.4 % (0.0-10.0); %Lymphocytes 10.8 % (21.0-51.0); %Monocytes 5.6 % (0.0-10.0); %Neutrophils 82.8 % (42.0-75.0); Hemoglobin 7.8 g/dL (14.0-18.0); Mean Corpuscular HGB CONC 31.6 g/dL (32.0-36.0); Mean Corpuscular Hemoglobin 24.8 pg (27.0-31.0); Mean Corpuscular Volume 78.5 fL (78.0-98.0); Mean Platelet Volume 8.1 fL (7.4-10.4); Platelet Count 270 thou/uL (130-400); RBC Distribution Width 16.9 % (11.5-14.5); Red Blood Cell (RBC) Count 3.16 mill/uL (4.70-6.10); White Blood Cell (WBC) Count 12.1 thou/uL (4.8-10.8)
[2018-12-12 05:02] LABS: Anion Gap 13 mmol/L (10-20); BUN (Urea Nitrogen) 18 mg/dL (8.4-25.7); Calc. Creatinine Clearance 84 mL/min (70-130); Carbon Dioxide 25 mmol/L (23-31); Chloride 109 mmol/L (98-107); Estimated GFR-MDRD 81; Glucose 84 mg/dL (80-115); Potassium 3.8 mmol/L (3.5-5.1); Sodium 143 mmol/L (136-145)
--- NOTE | 2018-12-12 07:38 | CT ---
ABDOMEN AND PELVIS CT NONCONTRAST: INDICATION: Abdominal pain. FINDINGS: There is extensive dilatation of the gallbladder with internal increased density. There is a loop of markedly thickened and dilated bowel of the left upper to mid ad within the region of jejunum, with involution of the distal-most aspect of the duodenum near the expected region of ligament of Treitz. This is compatible with an entero-enteric intussusception. There is no disseminated free air. Nuria d abdominal organs are limited in evaluation without IV contrast. There is diffuse vascular disease. Reticular nodularity is seen at each lung base, incompletely evaluated Cardiac chambers are promin ent, where visualized. Diffuse osseous degenerative changes are seen. There is a noninflamed fat-co ntaining periumbilical hernia. There is a gastrostomy in place with insufflated balloon within the gastric lumen ventrally. Scant a bdominopelvic ascites is seen. IMPRESSION: 1. Entero-enteric intussusception at the level of the proximal jejunum with associated long-segment bowel wall thickening and dilatation. Urgent surgical consultation is warranted. 2. Prominent distention of the gallbladder with multifocal internal increased density. Dedicated ga llbladder ultrasound is necessary. Telephone call placed to the physician caring for the patient, Dr. Pedrito Smallwood, at the time of dicta tion, 0520 hrs, 12/12/18. CODE CR POS: LOTTIE
--- NOTE | 2018-12-12 08:57 | RAD ---
PRELIMINARY REPORT/[facility]/EMERGENCY AFTER HOURS PROCEDURE: EXAM: XR Abdomen, 1 View EXAM DATE/TIME: 12/12/2018 12:04 AM CLINICAL HISTORY: 68 years old, male; Device placement; Gi device; Patient HX: Eval for peg tube placement TECHNIQUE: Imaging protocol: Frontal supine view of the abdomen/pelvis. COMPARISON: No relevant prior studies available. FINDINGS: Tubes, catheters and devices: Two AP images of the upper abdomen show a gastrostomy tube and oral con trast in the stomach. No evidence of leakage. Gastrointestinal tract: Incomplete evaluation of the bowel. Bones/joints: No acute findings. IMPRESSION: Oral contrast is seen in the stomach without evidence of contrast leakage. Thank you for allowing us to participate in the care of your patient. Dictated and Authenticated by: Lyudmila Jon MD 12/12/2018 2:45 AM Central Time ([place] & [place]) FINAL REPORT SINGLE VIEW OF THE ABDOMEN: COMPARISON: None. HISTORY: PEG tube placement. FINDINGS: A single view of the upper abdomen shows a PEG tube within the stomach. There is contrast within the stomach and PEG tube. There is a nonobstructive bowel gas pattern. IMPRESSION: PEG tube located in the stomach.
--- NOTE | 2018-12-12 09:02 | PDOC.PN ---
- Subjective Encounter Start Date: 12/12/18 (f/u anemia) Encounter Start Time: 09:00 Subjective: No visualized bleeding. An attempt at using the peg tube and -: more return than was placed in. CT overnight shows an intussusception -: Pt showing signs of abd pain - Objective Resuscitation Status - Order Detail: 12/10/18 20:05 Resuscitation Status Routine Resuscitation Status: FULL: Full Resuscitation Discussed with: son, and on NH record Vital Signs & Weight: Vital Signs (12 hours) Temp 12/12/18 07:37 98.8 F 12/12/18 04:00 98.5 F 12/11/18 23:38 98.7 F Weight Weight 201 lb Most Recent Monitor Data Heart Rate from ECG 99 NIBP 154/83 NIBP BP-Mean 106 Respiration from ECG 12 SpO2 100 I&O: 12/11/18 12/12/18 12/13/18 06:59 06:59 06:59 Intake Total 659 2486 Output Total 25 1150 Balance 634 1336 Result Diagrams: 12/12/18 04:10 12/12/18 04:10 EKG Reviewed by me: Yes (tele - a fib currently in the 130's) Phys Exam - Physical Examination Constitutional: NAD Respiratory: no wheezing, no rales, no rhonchi Cardiovascular: RRR, no significant murmur Gastrointestinal: soft absent bowel sounds on my exam, soft, no rebound or guarding Musculoskeletal: no edema right hemiparesis and aphasia Skin: no rash Dx/Plan (1) Anemia Code(s): D64.9 - ANEMIA, UNSPECIFIED Status: Acute Qualifiers: Other causes of anemia: acute posthemorrhagic (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 - NEOPLASM OF UNSPECIFIED BEHAVIOR OF DIGESTIVE SYSTEM Status: Chronic (3) Chronic atrial fibrillation Code(s): I48.2 - CHRONIC ATRIAL FIBRILLATION Status: Chronic (4) Hypertension Code(s): I10 - ESSENTIAL (PRIMARY) HYPERTENSION Status: Chronic Qualifiers: Hypertension type: essential hypertension Qualified Code(s): I10 - Essential (primary) hypertension (5) Right hemiparesis Code(s): G81.91 - HEMIPLEGIA, UNSPECIFIED AFFECTING RIGHT DOMINANT SIDE Status : Chronic (6) Aphasia Code(s): R47.01 - APHASIA Status: Chronic (7) Chronic pain Code(s): G89.29 - OTHER CHRONIC PAIN Status: Chronic Qualifiers: Chronic pain type: other chronic pain Qualified Code(s): G89.29 - Other chronic pain (8) Tachycardia Code(s): R00.0 - TACHYCARDIA, UNSPECIFIED Status: Acute - Plan * A fib with RVR - start diltiazem with 10 mg loading and then gtt * Given the severe anemia on admission, his full anticoagulation is held * Intussusception - await GI and Gen Surgery input * PEG tube to suction * Hemoglobin stable - goal is above 7. EGD negative for bleeding. * * continue IV protonix * abdominal pain and baseline chronic pain on TID tylenol 3 at PA - continue low dose morphine prn * * [facility] consult as they are available to assist with goals of care * * dvt prophy - scd's * gi prophy - on BID PPI IV * code status full. * * pt remains at high risk given age, comorbidities and current presentation.
[2018-12-12] MEDS: NS 0.9% w/ 20 MEQ KCL 1,000 ML/1,000 ML BAG IV SCH ×2 (09:14→21:52)
[2018-12-12] MEDS: Pantoprazole 40 MG VIAL IVP SCH ×2 (09:18→21:46)
[2018-12-12] MEDS ORDERED: Lidocaine 1% PF 5 ML VIAL ONE (10:10)
[2018-12-12] MEDS ORDERED: Phenylephrine HCL 10 MG/ML VIAL ONE (10:10)
[2018-12-12] MEDS ORDERED: Rocuronium Bromide 10 MG/ML (10ML VIAL) ONE (10:10)
[2018-12-12] MEDS ORDERED: PROPOFOL 200 MG/20 ML VIAL ONE (10:10)
[2018-12-12] MEDS ORDERED: Metoprolol Tartrate 5 MG/5 ML VIAL ONE ×2 (10:10→19:13)
[2018-12-12] MEDS ORDERED: Ondansetron PF 4 MG/2 ML Vial ONE (10:10)
[2018-12-12] MEDS ORDERED: Succinylcholine Chloride 20 MG/ML 10 ml SYRINGE FS ONE (10:10)
[2018-12-12] MEDS: Diltiazem 125 MG in Sodium Chloride 0.9% 100 ML IVPB SCH ×2 (11:10→22:45)
--- NOTE | 2018-12-12 14:35 | PDOC.GSPN ---
Surgery Progress Note: Subj - Subjective Narrative: Patient did not tolerate bowel prep yesterday. The GoLYTELY stayed in his stomach with basically no emptying. Dr. Agarwal ordered a CT of the abdomen and pelvis with oral contrast which showed intussusception of the proximal jejunum with very little contrast passing that point. I was contacted with the results by phone which I felt explain his nausea and vomiting which was his admitting complaint, but the patient had never complained of any abdominal pain to me and I had just seen him that evening. I plan to speak with his family about taking him to the OR today, but when I saw him this morning he was complaining of abdominal pain for the first time since these been in the hospital. He was also mildly tender to palpation in the left greater than right upper quadrant. We have been trying to reach his family for several hours now and the only number that we have is busy. His son had stated that he was coming into the hospital today but has not been in yet. The patient's gallbladder also looked very distended and had an abnormal internal appearance. Follow-up ultrasound showed a masslike structure in the fundus which had flow on Doppler. He also has gallstones on ultrasound although his bile duct is normal and his LFTs are normal. He has not been febrile and his vital signs are normal but his white count is slightly elevated. H&H is stable since his transfusion. Assessment/plan: Small bowel intussusception causing obstruction nausea and vomiting. Source of his anemia is still not clear. He has new abdominal pain and tenderness which he did not have yesterday and I feel that he needs urgent surgical intervention but have been unable to reach his family despite multiple attempts. We will proceed with 2 doctor consent for the operating room. His gallbladder also has an abnormal appearance with a masslike structure in the fundus and cholecystectomy will be performed under the same anesthesia if feasible. I have discussed the diagnosis and plan with the patient in detail. He is able to nod yes and no and does give nodded agreement to proceed with surgery. He indicates that he understands that small bowel resection may be necessary if a lead point abnormality or ischemic damage is present. He indicates that he understands risks of surgery which include but are not limited to bleeding, infection, risks of anesthesia, damage to bowel, bile duct , blood vessels, or nearby structures, need for other procedures. We are going to try to do this in a laparoscopic hand-assisted manner since I will need to palpate the bowel for lead points, but he understands that he may need open surgery. I do not plan to try to resect the gastric mass at this time since he is at risk for recurrent intussusception and gastric obstruction which would put him at risk for leaking. We will continue to try to contact his family, but I am worried that further delay could put his bowel at risk. Surgery Progress Note: Obj - Vital signs Vital signs: Vital Signs - Most Recent Temp Pulse Resp BP Pulse Ox 98.3 F 97 12/12/18 12:09 12/12/18 08:00 Surgery Progress Note: Results - Labs Result Diagrams: 12/12/18 04:10 12/12/18 04:10 Lab results: Laboratory Results - last 24 hr 12/12/18 12/12/18 04:10 04:10 WBC 12.1 H RBC 3.16 L Hgb 7.8 L Hct 24.8 L MCV 78.5 MCH 24.8 L MCHC 31.6 L RDW 16.9 H Plt Count 270 MPV 8.1 Neutrophils % 82.8 H Lymphocytes % 10.8 L Monocytes % 5.6 Eosinophils % 0.4 Basophils % 0.3 Neutrophils # 10.0 H Lymphocytes # 1.3 Monocytes # 0.7 H Eosinophils # 0.0 Basophils # 0.0 Sodium 143 Potassium 3.8 Chloride 109 H Carbon Dioxide 25 Anion Gap 13 BUN 18 Creatinine 1.10 Estimated GFR (MDRD) 81 Glucose 84 Calcium 9.0
[2018-12-12] MEDS ORDERED: Bupivacaine/Epinephrine 0.25% 30 ML VIAL ONE ×2 (14:48→18:35)
--- NOTE | 2018-12-12 15:06 | ULT ---
RIGHT UPPER QUADRANT ULTRASOUND: HISTORY: Distended gallbladder on CT scan from earlier today. FINDINGS: The liver demonstrates homogeneous echotexture without focal mass or intrahepatic ductal dilatation. The pancreas is not well visualized due to overlying bowel gas. Multiple shadowing gallstones are s een in the gallbladder neck. Mass is seen in the gallbladder fundus with flow measuring 5.3 x 4.4 x 2.7 cm. The gallbladder is distended. No gallbladder wall thickening or pericholecystic fluid is se en. The common duct measures 6 mm in diameter. The right kidney is not satisfactorily visualized. IMPRESSION: 1. Cholelithiasis. 2. Gallbladder mass. 3. Surgical consultation is recommended. POS: [facility]
[2018-12-12] MEDS ORDERED: Fentanyl 250 MCG/5 ML VIAL ONE (15:12)
[2018-12-12] MEDS ORDERED: Sodium Chloride 0.9% 100 ML ONE (15:15)
[2018-12-12] MEDS ORDERED: cefOXitin 2 GM VIAL ONE (15:15)
[2018-12-12] MEDS ORDERED: Iopamidol 370 76% 50 ML VIAL FS ONE (17:15)
[2018-12-12] MEDS ORDERED: Fentanyl 100 MCG/2 ML VIAL ONE (18:00)
[2018-12-12] MEDS ORDERED: Labetalol HCl 100 MG/20 ML VIAL ONE (20:17)
[2018-12-12] MEDS ORDERED: Ondansetron PF 4 MG/2 ML Vial SLOW IVP PRN (20:42)
[2018-12-12] MEDS: Sodium Chloride 0.9% (PF) 10 ML VIAL FS PRN (21:46)
[2018-12-12] MEDS: Lorazepam 2 MG/ML VIAL SLOW IVP PRN (21:57)
[2018-12-13] MEDS: Acetaminophen 1,000 MG in Premix Bag 1 BAG IVPB SCH ×4 (00:28→17:35)
[2018-12-13] MEDS: Morphine 4 MG/ML VIAL SLOW IVP PRN ×3 (04:48→21:29)
[2018-12-13 05:03] LABS: Anion Gap 16 mmol/L (10-20); BUN (Urea Nitrogen) 22 mg/dL (8.4-25.7); Calc. Creatinine Clearance 67 mL/min (70-130); Calcium 8.8 mg/dL (7.8-10.44); Carbon Dioxide 21 mmol/L (23-31); Chloride 112 mmol/L (98-107); Estimated GFR-MDRD 63; Glucose 149 mg/dL (80-115); Potassium 4.3 mmol/L (3.5-5.1); Sodium 145 mmol/L (136-145)
[2018-12-13 05:30] LABS: Band 9 % (5-11); Hemoglobin 9.7 g/dL (14.0-18.0); Lymphocytes 7 % (21-51); MDiff Complete? YES; Mean Corpuscular HGB CONC 30.7 g/dL (32.0-36.0); Mean Corpuscular Hemoglobin 24.4 pg (27.0-31.0); Mean Corpuscular Volume 79.6 fL (78.0-98.0); Mean Platelet Volume 8.7 fL (7.4-10.4); Metamyelocyte 1 % (0-0); Monocytes 3 % (0-10); Neutrophil 80 % (42-75); Platelet Count 252 thou/uL (130-400); Platelet Morphology Comment Appears Adequate; RBC Distribution Width 17.3 % (11.5-14.5); Red Blood Cell (RBC) Count 3.99 mill/uL (4.70-6.10); White Blood Cell (WBC) Count 16.2 thou/uL (4.8-10.8)
[2018-12-13] MEDS: Lorazepam 2 MG/ML VIAL SLOW IVP PRN ×2 (05:31→18:57)
[2018-12-13] MEDS: Morphine 2 MG/ML SYRINGE SLOW IVP PRN ×5 (08:24→17:35)
[2018-12-13] MEDS: Pantoprazole 40 MG VIAL IVP SCH ×2 (08:26→20:58)
--- NOTE | 2018-12-13 08:39 | PRG ---
DATE OF SERVICE: 12/12/2018 REASON FOR CONSULTATION: Nausea, vomiting, and anemia. SUBJECTIVE: The patient was to undergo GoLYTELY prep over the overnight with plans for colonoscopy in the morning; however, the patient was unable to tolerate the instillation of the GoLYTELY prep through his PEG tube obtained at approximately 300 to 400 mL back and residuals after instillation of the same amount. Given the unknown etiology for his increasing residual, a CT scan was then performed, which showed a 10 to 15 cm segment of intussusception of the proximal small bowel. Upon examination this morning, the patient did exhibit some mild distress as well as possible increased tenderness in the left upper quadrant, although it is difficult to tell with the patient's altered mental status. Dr. Mckay was notified of these findings overnight and with plans to take the patient to the OR urgently. OBJECTIVE: VITAL SIGNS: Temperature 98.3, pulse 104, blood pressure 138/72, respiratory rate 18, saturating 100% on room air. GENERAL: The patient was lying in bed, in possible mild distress. The patient was alert, although only oriented to self. CARDIOVASCULAR: Tachycardic rate, but regular rhythm. RESPIRATORY: Clear to auscultation bilaterally. ABDOMEN: Normoactive bowel sounds. Soft, nondistended. Tenderness to palpation in the left upper quadrant. EXTREMITIES: No cyanosis, clubbing, or edema. LABORATORY DATA: CBC with a white blood cell count of 12.1, hemoglobin 7.8, hematocrit 24.8, platelets 270. Chemistry with a sodium of 143, potassium 3.8, chloride 109, CO2 of 25, BUN 18, creatinine 1.1, glucose 84. IMAGING DATA: CT of the abdomen and pelvis was obtained on December 12, 2018, which showed extensive dilatation of the gallbladder with internal increased densities. However, there was also a loop of markedly thickened and dilated bowel in the left upper to mid abdomen within the region of the jejunum consistent with an enteroenteric intussusception. There was no evidence of disseminated free air or perforation, and lastly, there was a noninflamed fat-containing periumbilical hernia. His percutaneous gastrostomy tube was in place within the gastric lumen ventrally with no abnormalities seen in that region. 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 Nausea and vomiting. The patient initially presented with acute onset of nausea and vomiting for 1 to 2 days prior to admission, characterized as multiple episodes of nonbloody emesis at the longterm. However, during his hospitalization, he did not have any further episodes of nausea and vomiting until he was being prepped for colonoscopy in which case he was unable to tolerate the instillation of the GoLYTELY. CT scan obtained at that point showed a 10 to 15 cm segment of enteroenteric intussusception, which could then contribute to the nausea and vomiting prior to admission. Recommendations; agree with Dr. Mckay in taking the patient emergently to the OR for surgical resection/correction of this intussusception given the increased risk of ischemia and bowel infarction. Anemia/gastrointestinal stromal tumor. The patient is presenting with a history of a submucosal lesion that eroded into the stomach in May 2018. EGD at that time was performed to achieve hemostasis, but it was unsuccessful in doing so. The plan was to have the patient transferred to [facility] for more definitive treatment, but unfortunately it does not seem that this had taken place and he was placed back on anticoagulation during this time. With his increasing anemia, there was concern for repeat bleeding from this GI stromal tumor, so he underwent repeat EGD on December 11, 2018, which showed a 2 to 2.5 cm globular lesion within the incisura of the stomach, but it did not show any evidence of ulcerated mucosa or evidence of active/recent bleeding. At this time, the likelihood of bleeding from this source is highly unlikely and he was being prepped for colonoscopy for further evaluation of the GI tract. However, given the imaging consistent with intussusception, this will need to be placed on hold until more stable and will most likely need a repeat colonoscopy in the outpatient setting once through the surgery. Recommendations; 1. Would continue to trend H and H and transfuse as necessary to maintain an H and H of 7/21. 2. Continue to monitor clinically for signs of active GI bleeding. 3. Would continue the patient on pantoprazole 40 mg daily for mucosal protection in case of repeat bleeding from the GI stromal tumor. 4. Would proceed with colonoscopy if and when the patient is more stable, more likely to be as an outpatient given his recent diagnosis of intussusception. With recent diagnosis of intussusception, this needs to be managed surgically with plans for colonoscopy on hold at this time. We will sign off at this time with the patient to follow up with me in the GI Clinic once more stable for further evaluation of his anemia. Job ID: [id number]
[2018-12-13] MEDS ORDERED: Digoxin 0.5 MG/2 ML AMP SLOW IVP SCH (09:45)
[2018-12-13] MEDS: Diltiazem 125 MG in Sodium Chloride 0.9% 100 ML IVPB SCH ×2 (10:09→18:56)
[2018-12-13] MEDS: NS 0.9% w/ 20 MEQ KCL 1,000 ML/1,000 ML BAG IV SCH ×2 (10:59→18:58)
[2018-12-13] MEDS ORDERED: Metoprolol Tartrate 100 MG TAB PER TUBE SCH (13:15)
[2018-12-13] MEDS ORDERED: Acetaminophen/Codeine 30-300mg Tablet PER TUBE PRN (13:19)
[2018-12-13] MEDS ORDERED: Acetaminophen 325 MG TAB PER TUBE PRN ×2 (13:19→23:59)
[2018-12-13] MEDS ORDERED: Bisacodyl 10 MG SUPP PR PRN (13:21)
[2018-12-13] MEDS ORDERED: Milk Of Magnesia 30 ML UDCUP PO PRN (13:28)
[2018-12-13] MEDS ORDERED: Melatonin 3 MG TAB PER TUBE PRN (13:29)
[2018-12-13] MEDS ORDERED: Ondansetron ODT 4 MG TAB PER TUBE PRN (13:29)
[2018-12-13] MEDS ORDERED: Losartan 25 MG TAB PER TUBE SCH (13:30)
[2018-12-13] MEDS: busPIRone HCl 5 MG TAB PER TUBE SCH ×2 (15:25→20:57)
[2018-12-13] MEDS ORDERED: Acetaminophen 650 MG Suppository PR PRN ×2 (20:42→23:59)
[2018-12-13] MEDS: Atorvastatin Calcium 40 MG TAB PER TUBE SCH (20:57)
[2018-12-13] MEDS: Gabapentin 300 MG CAP PO SCH (20:57)
[2018-12-13] MEDS: Amantadine HCl 10 mg/ml Oral Solution PER TUBE SCH (20:57)
[2018-12-13] MEDS: Apixaban 5 MG TAB PER TUBE SCH (20:57)
[2018-12-13] MEDS: Metoprolol Tartrate 100 MG TAB PER TUBE SCH (20:58)
--- NOTE | 2018-12-13 21:53 | PDOC.GSPN ---
Surgery Progress Note: Subj - Subjective Narrative: Patient states he is having a little nausea and pain. NG output is dark. Incisions look good. Bowel sounds are hypoactive. He affirms that he has passed some gas. White count is up a bit as is his creatinine but other labs are okay. Assessment/plan: Status post small bowel resection for jejunal mass causing intussusception, and cholecystectomy for gallstones and gallbladder mass. Pathology is pending. He is still having some nausea so we will hold off on tube feeds for another day. Surgery Progress Note: Obj - Vital signs Vital signs: Vital Signs - Most Recent Temp Pulse Resp BP Pulse Ox 98.0 F 120 H 148/93 H 94 L 12/13/18 19:34 12/13/18 09:57 12/13/18 08:55 12/13/18 20:00 Surgery Progress Note: Results - Labs Result Diagrams: 12/13/18 04:34 12/13/18 04:34
[2018-12-14] MEDS: Morphine 4 MG/ML VIAL SLOW IVP PRN (04:58)
[2018-12-14 06:38] LABS: ALT (SGPT) 14 U/L (8-55); AST (SGOT) 16 U/L (5-34); Albumin 3.5 g/dL (3.4-4.8); Alkaline Phosphatase 96 U/L (40-150); Anion Gap 12 mmol/L (10-20); BUN (Urea Nitrogen) 20 mg/dL (8.4-25.7); Bilirubin, Total 0.6 mg/dL (0.2-1.2); Calc. Creatinine Clearance 66 mL/min (70-130); Calcium 9.1 mg/dL (7.8-10.44); Carbon Dioxide 22 mmol/L (23-31); Chloride 114 mmol/L (98-107); Estimated GFR-MDRD 62; Globulin 3.1 g/dL (2.4-3.5); Glucose 98 mg/dL (80-115); Potassium 4.1 mmol/L (3.5-5.1); Protein, Total 6.6 g/dL (5.8-8.1); Sodium 144 mmol/L (136-145)
[2018-12-14 06:53] LABS: Band 6 % (5-11); Hemoglobin 9.7 g/dL (14.0-18.0); Hypochromia SLIGHT = 6-15 cells (100X) (0-5/hpf); Lymphocytes 1 % (21-51); MDiff Complete? YES; Mean Corpuscular HGB CONC 30.3 g/dL (32.0-36.0); Mean Corpuscular Hemoglobin 24.7 pg (27.0-31.0); Mean Corpuscular Volume 81.6 fL (78.0-98.0); Mean Platelet Volume 8.2 fL (7.4-10.4); Monocytes 1 % (0-10); Neutrophil 92 % (42-75); Platelet Count 280 thou/uL (130-400); Platelet Morphology Comment Appears Adequate; RBC Distribution Width 17.8 % (11.5-14.5); Red Blood Cell (RBC) Count 3.93 mill/uL (4.70-6.10); White Blood Cell (WBC) Count 16.7 thou/uL (4.8-10.8)
[2018-12-14] MEDS ORDERED: Furosemide 20 MG TAB PER TUBE SCH (09:00)
[2018-12-14] MEDS: busPIRone HCl 5 MG TAB PER TUBE SCH ×3 (10:05→20:16)
[2018-12-14] MEDS: Amantadine HCl 10 mg/ml Oral Solution PER TUBE SCH ×2 (10:05→20:17)
[2018-12-14] MEDS: Apixaban 5 MG TAB PER TUBE SCH ×2 (10:06→20:16)
[2018-12-14] MEDS: Pantoprazole 40 MG VIAL IVP SCH ×2 (10:06→20:17)
[2018-12-14] MEDS: Terbinafine 1% 30 GM TUBE TOP SCH (10:06)
[2018-12-14] MEDS: Gabapentin 300 MG CAP PO SCH ×2 (10:06→20:16)
[2018-12-14] MEDS: Losartan 25 MG TAB PER TUBE SCH (10:06)
[2018-12-14] MEDS: Polyethylene Glycol 3350 17 GM Packet PER TUBE SCH (10:06)
[2018-12-14] MEDS: Metoprolol Tartrate 100 MG TAB PER TUBE SCH ×2 (10:06→20:16)
--- NOTE | 2018-12-14 16:49 | RAD ---
Exam: Abdomen one view HISTORY: Check PEG tube. COMPARISON: 12/12/2018 FINDINGS: Single view of the abdomen demonstrates opacification of the stomach with contrast, presume d to be administered via a PEG tube. IMPRESSION: Contrast opacifying the stomach as described above.
[2018-12-14] MEDS: Atorvastatin Calcium 40 MG TAB PER TUBE SCH (20:16)
[2018-12-14] MEDS: NS 0.9% w/ 20 MEQ KCL 1,000 ML/1,000 ML BAG IV SCH (20:17)
[2018-12-14] MEDS: Lorazepam 2 MG/ML VIAL SLOW IVP PRN (22:12)
--- NOTE | 2018-12-14 22:41 | RAD ---
XR Abdomen 1 View/KUB HISTORY: Gastrostomy tube check. COMPARISON: None. FINDINGS: Contrast was injected into the gastrostomy tube. Contrast is seen within the stomach and pr oximal small bowel. A duodenal diverticulum is seen. No evidence of leak. IMPRESSION: No signs of leak.
[2018-12-14] MEDS: PATIENT'S HOME MEDICATION PER TUBE SCH (23:58)
[2018-12-15] MEDS: Morphine 4 MG/ML VIAL SLOW IVP PRN ×2 (04:20→09:00)
[2018-12-15] MEDS: NS 0.9% w/ 20 MEQ KCL 1,000 ML/1,000 ML BAG IV SCH ×2 (05:57→18:18)
[2018-12-15] MEDS: busPIRone HCl 5 MG TAB PER TUBE SCH ×3 (08:59→20:01)
[2018-12-15] MEDS: Apixaban 5 MG TAB PER TUBE SCH ×2 (08:59→20:01)
[2018-12-15] MEDS: Pantoprazole 40 MG VIAL IVP SCH ×2 (08:59→20:01)
[2018-12-15] MEDS: Polyethylene Glycol 3350 17 GM Packet PER TUBE SCH (08:59)
[2018-12-15] MEDS: Gabapentin 300 MG CAP PO SCH ×2 (09:00→20:00)
[2018-12-15] MEDS: Losartan 25 MG TAB PER TUBE SCH (09:01)
[2018-12-15] MEDS: Metoprolol Tartrate 100 MG TAB PER TUBE SCH ×2 (09:01→20:00)
[2018-12-15] MEDS: Amantadine HCl 10 mg/ml Oral Solution PER TUBE SCH ×2 (09:01→20:01)
[2018-12-15] MEDS ORDERED: Losartan 25 MG TAB PO SCH (09:30)
[2018-12-15] MEDS: Lorazepam 2 MG/ML VIAL SLOW IVP PRN ×2 (12:46→19:24)
--- NOTE | 2018-12-15 15:29 | PDOC.GSPN ---
Surgery Progress Note: Subj - Subjective Narrative: Assessment with pathologist. Patient has adenocarcinoma of the small intestine, lymph nodes pending. High-grade dysplasia on the gallbladder mass without definite invasive cancer although additional sections are still pending. He is feeling okay and is hungry. Gastrografin upper GI study last night showed rapid transit through the anastomosis without evidence of leaks or tube feeds have been restarted. His incisions look good. Vitals are stable. Surgery Progress Note: Obj - Vital signs Vital signs: Vital Signs - Most Recent Temp Pulse Resp BP Pulse Ox 97.0 F L 120 H 148/93 H 97 12/15/18 15:10 12/13/18 09:57 12/13/18 08:55 12/15/18 07:52 Surgery Progress Note: Results - Labs Result Diagrams: 12/14/18 06:04 12/14/18 06:04
[2018-12-15] MEDS: Terbinafine 1% 30 GM TUBE TOP SCH (17:56)
[2018-12-15] MEDS: Atorvastatin Calcium 40 MG TAB PER TUBE SCH (20:00)
--- NOTE | 2018-12-16 08:26 | CON ---
DATE OF CONSULTATION: HISTORY OF PRESENT ILLNESS: Mr. Bryan Santoyo is a 68-year-old black male. I have seen several times in the office starting in July 2018. His significant health problems began on March 20, 2018, when he was admitted to [facility] in [place] with stroke and seizures. He was intubated, he had right- sided weakness. He was placed on anticoagulation for atrial fibrillation. Transthoracic ejection fraction was 40% to 45%. He eventually was sent to the half-way in [place]. He was admitted here in May 2019 with upper GI bleed. He was transferred back to [place], but apparently did not have any surgical intervention. I initially saw him in July 2018. He was referred for increased peripheral edema. At that time, he was on amlodipine 10 mg daily. His blood pressure was low that day, actually 80/52. With the peripheral edema, his amlodipine dose was reduced to 5 mg. Repeat echocardiogram revealed ejection fraction of 45% to 50% with mild left atrial enlargement, mild mitral regurgitation and mild tricuspid regurgitation. When he was seen in August, the amlodipine had apparently been discontinued and losartan was increased from 25-50 mg daily. His heart rate was 107 per minute and he was started on metoprolol 50 mg b.i.d. He was last seen in September 29, 2018 and had no specific complaints. He had lost approximately 13 pounds with low-dose furosemide 20 daily and stopping the amlodipine. The heart rate was 69 per minute. He now is admitted with vomiting. Ultimately he underwent surgery with resection of small bowel and cholecystectomy. At the present time, he denies any chest pain or shortness of breath. PAST MEDICAL HISTORY: Hypertension, hypercholesterolemia, chronic atrial fibrillation, left hemispheric CVA with resulting right-sided hemiparesis and aphasia. He can answer yes or no by shaking his head, but cannot speak. MEDICATIONS: 1. Amantadine 10ml b.i.d. 2. Eliquis 5 mg b.i.d. 3. Atorvastatin 40 mg daily. 4. Buspirone 5 mg t.i.d. 5. Gabapentin 300 b.i.d. 6. Furosemide 20 daily. 7. Losartan 25 daily. 8. Melatonin 6 mg at bedtime. 9. Metoprolol 100 mg b.i.d. 10. Zofran p.r.n. 11. Sertraline 50 mg daily. ALLERGIES: NONE. SOCIAL HISTORY: Lives in a half-way in [facility]. REVIEW OF SYSTEMS: Unobtainable due to the patient's aphasia. PHYSICAL EXAMINATION: VITAL SIGNS: 151/110, pulse of 107, atrial fibrillation. HEENT: PERRL. NECK: Supple. CHEST: Clear. CARDIAC: S1 and S2 normal without any S3, S4, murmurs. ABDOMEN: Decreased bowel sounds. EXTREMITIES: Revealed no clubbing, cyanosis, or edema. NEUROLOGIC: Grossly intact. SKIN: Warm and dry. LABORATORY DATA: EKG revealed atrial fibrillation with nonspecific ST and T- wave changes. Hemoglobin 9.7, hematocrit 32.0, white count 42246, platelets 280,000. Sodium 144, potassium 4.1, chloride 114, carbon dioxide 22, BUN 20, creatinine 1.39. IMPRESSION: 1. Nausea and vomiting with resection of small bowel and cholecystectomy. 2. History of recurrent gastrointestinal bleeding, on anticoagulation. 3. Chronic atrial fibrillation. 4. Embolic left hemispheric cerebrovascular accident with resulting right hemiparesis and aphasia. 5. Hypertension. 6. Hypercholesterolemia. 7. Former smoker. PLAN: The patient will be continued on his usual medications. Certainly from a Cardiology standpoint, he should be back on anticoagulation as soon as possible depending upon surgeons and GI physician's input. Job ID: [id number] MTDD
[2018-12-16] MEDS: Amantadine HCl 10 mg/ml Oral Solution PER TUBE SCH ×2 (10:36→21:15)
[2018-12-16] MEDS: Apixaban 5 MG TAB PER TUBE SCH ×2 (10:37→20:08)
[2018-12-16] MEDS: Gabapentin 300 MG CAP PO SCH ×2 (10:37→20:08)
[2018-12-16] MEDS: Losartan 25 MG TAB PER TUBE SCH (10:37)
[2018-12-16] MEDS: busPIRone HCl 5 MG TAB PER TUBE SCH ×3 (10:37→20:09)
[2018-12-16] MEDS: Metoprolol Tartrate 100 MG TAB PER TUBE SCH ×2 (10:38→20:09)
[2018-12-16] MEDS: Pantoprazole 40 MG VIAL IVP SCH ×2 (10:38→20:10)
[2018-12-16] MEDS: Polyethylene Glycol 3350 17 GM Packet PER TUBE SCH (10:38)
[2018-12-16] MEDS: Terbinafine 1% 30 GM TUBE TOP SCH (10:39)
--- NOTE | 2018-12-16 12:04 | CON ---
DATE OF CONSULTATION: REASON FOR CONSULT: Adenocarcinoma. HISTORY OF PRESENT ILLNESS: Mr. Santoyo is a 68-year-old gentleman with past medical history of CVA, seizures, and GI bleed, who was brought to the emergency room on December 10 for vomiting. He underwent scans, which showed a jejunal mass and gallbladder mass. 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 The patient is recovering from his surgeries and is doing well. The patient was seen at bedside. He is aphasic and has right hemiplegia. History was obtained from review of medical records and discussion with Dr. Mckay. PAST MEDICAL HISTORY: 1. Upper GI bleed secondary to a stromal tumor in May of 2018. 2. Chronic atrial fibrillation. 3. Left MCA stroke with aphasia and right hemiparesis. 4. Hypertension. PAST SURGICAL HISTORY: PEG tube placement. ALLERGIES: NO KNOWN DRUG ALLERGIES. CURRENT MEDICATIONS: 1. Amantadine 100 mg b.i.d. 2. Eliquis 5 mg b.i.d. 3. Lipitor 40 mg daily. 4. Dulcolax daily. 5. BuSpar 5 mg t.i.d. 6. Diltiazem CD 120 mg daily. 7. Neurontin 300 mg b.i.d. 8. Cozaar 50 mg daily. 9. Melatonin daily. 10. Protonix 40 mg daily. 11. MiraLAX daily. 12. Zoloft 50 mg daily. FAMILY HISTORY: Unknown. SOCIAL HISTORY: The patient lives in a [facility]. REVIEW OF SYSTEMS: Unable to obtain secondary to aphasia. PHYSICAL EXAMINATION: VITAL SIGNS: Temperature is 97.6, pulse is 99, respiratory rate is 28, and BP is 172/114. He is 94% on room air. GENERAL: Well-developed, well-nourished male, in no acute distress. HEENT: Normocephalic and atraumatic. Pupils are equal and reactive to light. NECK: Supple. CV: Irregular rate and rhythm. Tachycardic. LUNGS: Clear anterior. ABDOMEN: Soft and nontender. Bowel sounds are positive. PEG tube in place. EXTREMITIES: No clubbing, cyanosis, or edema. SKIN: No rash. HEMATOLOGIC: No petechiae or purpura. NEUROLOGIC: The patient is aphasic and right-sided hemiparesis. PERTINENT LABS AND X-RAYS: Current WBCs are 16.7, hemoglobin 9.7, hematocrit 32.0, and platelet count 280,000. He has 92% neutrophils, 6% bands, and 1% lymphocytes. Sodium is 144, potassium is 4.1, chloride is 114, CO2 is 22, BUN is 20, creatinine is 1.39, calcium is 9.1, bilirubin is 0.6, AST is 16, ALT is 14, and alkaline phosphatase is 96. Troponin is negative. Serum total protein is 6.6, albumin 3.5, and globulin 3.1. ASSESSMENT: 1. 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 3. History of middle cerebral artery stroke with aphasia and right hemiparesis. DISCUSSION: The patient likely has two primaries per Dr. Mckay, both are clear margins. The patient has an ECOG of 4, very difficult to treat with IV chemotherapy. It is unclear if he needs this and will need treatment in this setting. Xeloda would be an option, although it would have to go through a PEG tube. We will discuss this further with Dr. Gale at the moment. The patient will be followed in the outpatient setting. Thank you for the consult. Job ID: [id number]
[2018-12-16 16:37] LABS: Anisocytosis SLIGHT = 6-15 cells (100X) (0-5/hpf); Band 1 % (5-11); Eosinophils 1 % (0-10); Hemoglobin 8.6 g/dL (14.0-18.0); Hypochromia SLIGHT = 6-15 cells (100X) (0-5/hpf); Lymphocytes 10 % (21-51); MDiff Complete? YES; Mean Corpuscular Hemoglobin 24.6 pg (27.0-31.0); Mean Corpuscular Volume 79.5 fL (78.0-98.0); Mean Platelet Volume 7.8 fL (7.4-10.4); Monocytes 3 % (0-10); Neutrophil 85 % (42-75); Platelet Count 258 thou/uL (130-400); Platelet Morphology Comment Appears Adequate; Poikilocytosis SLIGHT = 6-15 cells (100X) (0-5/hpf); RBC Distribution Width 17.4 % (11.5-14.5); Red Blood Cell (RBC) Count 3.49 mill/uL (4.70-6.10); White Blood Cell (WBC) Count 10.2 thou/uL (4.8-10.8)
[2018-12-16] MEDS: NS 0.9% w/ 20 MEQ KCL 1,000 ML/1,000 ML BAG IV SCH ×2 (18:33→19:31)
[2018-12-16] MEDS: Atorvastatin Calcium 40 MG TAB PER TUBE SCH (20:08)
[2018-12-16] MEDS: Sodium Chloride 0.9% (PF) 10 ML VIAL FS PRN (20:10)
--- NOTE | 2018-12-16 21:22 | PDOC.GSPN ---
Surgery Progress Note: Subj - Subjective Narrative: Denies pain, nausea, tolerating tube feeds. Incisions healing, abdomen soft. Galbladder and small bowel both positive for adenocarcinoma (separate primaries) ; oncology consulted. Continue tube feeds. No new surgical recommendations. Surgery Progress Note: Obj - Vital signs Vital signs: Vital Signs - Most Recent Temp Pulse Resp BP Pulse Ox 98.6 F 104 H 16 175/135 H 99 12/16/18 19:42 12/16/18 20:09 12/16/18 19:39 12/16/18 19:39 12/16/18 19:39 Surgery Progress Note: Results - Labs Result Diagrams: 12/16/18 15:23 12/14/18 06:04 Lab results: Laboratory Results - last 24 hr 12/16/18 15:23 WBC 10.2 RBC 3.49 L Hgb 8.6 L Hct 27.8 L MCV 79.5 MCH 24.6 L MCHC 31.0 L RDW 17.4 H Plt Count 258 MPV 7.8 Neutrophils % (Manual) 85 H Band Neuts % (Manual) 1 L Lymphocytes % (Manual) 10 L Monocytes % (Manual) 3 Eosinophils % (Manual) 1 Hypochromia SLIGHT = 6-15 cells Plt Morphology Comment Appears Adequate Poikilocytosis SLIGHT = 6-15 cells Anisocytosis SLIGHT = 6-15 cells
[2018-12-17] MEDS: NS 0.9% w/ 20 MEQ KCL 1,000 ML/1,000 ML BAG IV SCH ×2 (05:08→20:43)
[2018-12-17 07:29] LABS: #Eosinphils 0.1 thou/uL (0.0-0.7); #Lymphocytes 1.3 thou/uL (1.20-3.40); #Monocytes 0.5 thou/uL (0.11-0.59); #Neutrophils 7.2 thou/uL (1.40-6.50); %Basophils 0.3 % (0.0-1.0); %Eosinophils 1.6 % (0.0-10.0); %Lymphocytes 14.2 % (21.0-51.0); %Monocytes 5.2 % (0.0-10.0); %Neutrophils 78.8 % (42.0-75.0); Hemoglobin 8.8 g/dL (14.0-18.0); Mean Corpuscular HGB CONC 30.5 g/dL (32.0-36.0); Mean Corpuscular Hemoglobin 24.1 pg (27.0-31.0); Mean Corpuscular Volume 78.9 fL (78.0-98.0); Mean Platelet Volume 8.5 fL (7.4-10.4); Platelet Count 249 thou/uL (130-400); RBC Distribution Width 17.5 % (11.5-14.5); Red Blood Cell (RBC) Count 3.64 mill/uL (4.70-6.10); White Blood Cell (WBC) Count 9.1 thou/uL (4.8-10.8)
[2018-12-17 07:52] LABS: ALT (SGPT) 14 U/L (8-55); AST (SGOT) 14 U/L (5-34); Albumin 3.1 g/dL (3.4-4.8); Alkaline Phosphatase 85 U/L (40-150); Anion Gap 12 mmol/L (10-20); BUN (Urea Nitrogen) 20 mg/dL (8.4-25.7); Bilirubin, Total 0.4 mg/dL (0.2-1.2); Calc. Creatinine Clearance 107 mL/min (70-130); Calcium 8.3 mg/dL (7.8-10.44); Carbon Dioxide 19 mmol/L (23-31); Chloride 116 mmol/L (98-107); Estimated GFR-MDRD Greater than 90; Globulin 2.9 g/dL (2.4-3.5); Glucose 113 mg/dL (80-115); Potassium 3.6 mmol/L (3.5-5.1); Sodium 143 mmol/L (136-145)
[2018-12-17] MEDS: Amantadine HCl 10 mg/ml Oral Solution PER TUBE SCH ×2 (09:57→20:42)
[2018-12-17] MEDS: Gabapentin 300 MG CAP PO SCH ×2 (09:58→20:42)
[2018-12-17] MEDS: Apixaban 5 MG TAB PER TUBE SCH ×2 (09:58→20:41)
[2018-12-17] MEDS: busPIRone HCl 5 MG TAB PER TUBE SCH ×3 (09:58→20:41)
[2018-12-17] MEDS: Metoprolol Tartrate 100 MG TAB PER TUBE SCH ×2 (09:58→20:42)
[2018-12-17] MEDS: Losartan 25 MG TAB PER TUBE SCH (09:58)
[2018-12-17] MEDS: Polyethylene Glycol 3350 17 GM Packet PER TUBE SCH (09:59)
[2018-12-17] MEDS: Pantoprazole 40 MG VIAL IVP SCH ×2 (09:59→20:43)
[2018-12-17] MEDS: Terbinafine 1% 30 GM TUBE TOP SCH (10:16)
--- NOTE | 2018-12-17 17:09 | PDOC.GSPN ---
Surgery Progress Note: Subj - Subjective Narrative: Patient denies any nausea vomiting or abdominal pain. He is tolerating his tube feeds. H&H is stable. White count normal and renal function normal. His incisions look good and his PEG tube site is clean. Dr. Lake wants to restart his anticoagulation. Assessment/plan: Status post resection of small bowel mass causing intussusception as well as cholecystectomy for gallbladder mass. Both of these masses came back as adenocarcinoma. It is unclear whether he would benefit from or tolerate chemotherapy but he is going to be discussed at the tumor board next week and follow up as an outpatient. 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 The ulcer has healed and the bowel masses been resected, so cardiology feel strongly that anticoagulation is necessary, there are no strong surgical contraindications as long as the patient and his family gave informed consent. From a surgical standpoint he is ready for discharge. I'm going to sign off. I will see him as an outpatient in 2 weeks' time in my clinic. Surgery Progress Note: Obj - Vital signs Vital signs: Vital Signs - Most Recent Temp Pulse Resp BP Pulse Ox 98.0 F 104 H 16 175/135 H 98 12/17/18 12:00 12/16/18 20:09 12/16/18 19:39 12/16/18 19:39 12/17/18 08:00 Surgery Progress Note: Results - Labs Result Diagrams: 12/17/18 07:05 12/17/18 07:05 Lab results: Laboratory Results - last 24 hr 12/17/18 12/17/18 07:05 07:05 WBC 9.1 RBC 3.64 L Hgb 8.8 L Hct 28.7 L MCV 78.9 MCH 24.1 L MCHC 30.5 L RDW 17.5 H Plt Count 249 MPV 8.5 Neutrophils % 78.8 H Lymphocytes % 14.2 L Monocytes % 5.2 Eosinophils % 1.6 Basophils % 0.3 Neutrophils # 7.2 H Lymphocytes # 1.3 Monocytes # 0.5 Eosinophils # 0.1 Basophils # 0.0 Sodium 143 Potassium 3.6 Chloride 116 H Carbon Dioxide 19 L Anion Gap 12 BUN 20 Creatinine 0.83 Estimated GFR (MDRD) Greater than 90 Glucose 113 Calcium 8.3 Total Bilirubin 0.4 AST 14 ALT 14 Alkaline Phosphatase 85 Serum Total Protein 6.0 Albumin 3.1 L Globulin 2.9 Albumin/Globulin Ratio 1.1 L
[2018-12-17] MEDS: Acetaminophen/Codeine 30-300mg Tablet PER TUBE PRN (17:57)
[2018-12-17] MEDS: Atorvastatin Calcium 40 MG TAB PER TUBE SCH (20:42)
[2018-12-18] MEDS: busPIRone HCl 5 MG TAB PER TUBE SCH ×3 (09:13→21:23)
[2018-12-18] MEDS: Apixaban 5 MG TAB PER TUBE SCH ×2 (09:13→21:23)
[2018-12-18] MEDS: Amantadine HCl 10 mg/ml Oral Solution PER TUBE SCH ×2 (09:13→21:22)
[2018-12-18] MEDS: Losartan 25 MG TAB PER TUBE SCH (09:14)
[2018-12-18] MEDS: Polyethylene Glycol 3350 17 GM Packet PER TUBE SCH (09:14)
[2018-12-18] MEDS: Gabapentin 300 MG CAP PO SCH ×2 (09:14→21:23)
[2018-12-18] MEDS: Metoprolol Tartrate 100 MG TAB PER TUBE SCH ×2 (09:14→21:23)
[2018-12-18] MEDS: Terbinafine 1% 30 GM TUBE TOP SCH (09:15)
[2018-12-18] MEDS ORDERED: Furosemide 20 MG TAB PER TUBE SCH (10:00)
[2018-12-18] MEDS: Vancomycin HCl 25 MG/ML Oral PER TUBE SCH ×4 (10:24→21:45)
[2018-12-18] MEDS: Pantoprazole 40 MG VIAL IVP SCH ×2 (10:25→21:23)
[2018-12-18] MEDS: NS 0.9% w/ 20 MEQ KCL 1,000 ML/1,000 ML BAG IV SCH ×2 (12:54→17:09)
[2018-12-18] MEDS: Sodium Chloride 0.9% (PF) 10 ML VIAL FS PRN (21:23)
[2018-12-18] MEDS: Atorvastatin Calcium 40 MG TAB PER TUBE SCH (21:23)
[2018-12-19 04:32] LABS: #Basophils 0.1 thou/uL (0.0-0.2); #Eosinphils 0.1 thou/uL (0.0-0.7); #Lymphocytes 1.6 thou/uL (1.20-3.40); #Monocytes 0.5 thou/uL (0.11-0.59); #Neutrophils 8.1 thou/uL (1.40-6.50); %Basophils 0.5 % (0.0-1.0); %Eosinophils 1.2 % (0.0-10.0); %Lymphocytes 15.7 % (21.0-51.0); %Monocytes 4.8 % (0.0-10.0); %Neutrophils 77.9 % (42.0-75.0); Hemoglobin 8.6 g/dL (14.0-18.0); Mean Corpuscular HGB CONC 31.1 g/dL (32.0-36.0); Mean Corpuscular Hemoglobin 24.7 pg (27.0-31.0); Mean Corpuscular Volume 79.3 fL (78.0-98.0); Mean Platelet Volume 8.4 fL (7.4-10.4); Platelet Count 244 thou/uL (130-400); RBC Distribution Width 17.4 % (11.5-14.5); White Blood Cell (WBC) Count 10.3 thou/uL (4.8-10.8)
[2018-12-19 04:56] LABS: Anion Gap 11 mmol/L (10-20); BUN (Urea Nitrogen) 22 mg/dL (8.4-25.7); Calc. Creatinine Clearance 105 mL/min (70-130); Calcium 8.9 mg/dL (7.8-10.44); Carbon Dioxide 21 mmol/L (23-31); Chloride 115 mmol/L (98-107); Estimated GFR-MDRD Greater than 90; Glucose 102 mg/dL (80-115); Potassium 3.9 mmol/L (3.5-5.1); Sodium 143 mmol/L (136-145)
[2018-12-19] MEDS: Apixaban 5 MG TAB PER TUBE SCH ×2 (10:04→21:16)
[2018-12-19] MEDS: Furosemide 20 MG TAB PER TUBE SCH (10:05)
[2018-12-19] MEDS: Gabapentin 300 MG CAP PO SCH ×2 (10:05→21:14)
[2018-12-19] MEDS: busPIRone HCl 5 MG TAB PER TUBE SCH ×3 (10:05→21:14)
[2018-12-19] MEDS: Pantoprazole 40 MG VIAL IVP SCH (10:05)
[2018-12-19] MEDS: Metoprolol Tartrate 100 MG TAB PER TUBE SCH ×2 (10:05→21:14)
[2018-12-19] MEDS: Losartan 25 MG TAB PER TUBE SCH (10:05)
[2018-12-19] MEDS: Polyethylene Glycol 3350 17 GM Packet PER TUBE SCH (10:06)
[2018-12-19] MEDS: Terbinafine 1% 30 GM TUBE TOP SCH (10:07)
[2018-12-19] MEDS: Amantadine HCl 10 mg/ml Oral Solution PER TUBE SCH ×2 (10:28→21:14)
[2018-12-19] MEDS: Vancomycin HCl 25 MG/ML Oral PER TUBE SCH ×4 (10:29→21:13)
[2018-12-19] MEDS: Atorvastatin Calcium 40 MG TAB PER TUBE SCH (21:14)
[2018-12-20 06:50] VITALS: BP 131/76
[2018-12-20] MEDS: Vancomycin HCl 25 MG/ML Oral PER TUBE SCH ×4 (09:27→20:49)
[2018-12-20] MEDS: Amantadine HCl 10 mg/ml Oral Solution PER TUBE SCH ×2 (09:27→20:49)
[2018-12-20] MEDS: Pantoprazole 40 MG GRANULES PACKET PER TUBE SCH (09:28)
[2018-12-20] MEDS: Gabapentin 300 MG CAP PO SCH ×2 (09:28→20:49)
[2018-12-20] MEDS: Polyethylene Glycol 3350 17 GM Packet PER TUBE SCH (09:28)
[2018-12-20] MEDS: Metoprolol Tartrate 100 MG TAB PER TUBE SCH ×2 (09:29→20:48)
[2018-12-20] MEDS: Apixaban 5 MG TAB PER TUBE SCH ×2 (09:29→20:49)
[2018-12-20] MEDS: Furosemide 20 MG TAB PER TUBE SCH (09:29)
[2018-12-20] MEDS: busPIRone HCl 5 MG TAB PER TUBE SCH ×3 (09:29→20:48)
[2018-12-20] MEDS: Losartan 25 MG TAB PER TUBE SCH (09:29)
[2018-12-20] MEDS: Terbinafine 1% 30 GM TUBE TOP SCH (09:30)
[2018-12-20 14:45] VITALS: BMI 29.2
[2018-12-20] MEDS: Acetaminophen/Codeine 30-300mg Tablet PER TUBE PRN (16:29)
[2018-12-20] MEDS: Atorvastatin Calcium 40 MG TAB PER TUBE SCH (20:49)
[2018-12-21 07:32] LABS: Hemoglobin 8.5 g/dL (14.0-18.0); Platelet Count 224 thou/uL (130-400)
[2018-12-21 07:46] LABS: Calc. Creatinine Clearance 103 mL/min (70-130); Estimated GFR-MDRD Greater than 90
[2018-12-21] MEDS ORDERED: Losartan 25 MG TAB PER TUBE SCH (09:00)
[2018-12-21] MEDS: Amantadine HCl 10 mg/ml Oral Solution PER TUBE SCH (09:58)
[2018-12-21] MEDS: Vancomycin HCl 25 MG/ML Oral PER TUBE SCH ×3 (09:58→16:16)
[2018-12-21] MEDS: busPIRone HCl 5 MG TAB PER TUBE SCH ×2 (09:59→16:16)
[2018-12-21] MEDS: Metoprolol Tartrate 100 MG TAB PER TUBE SCH (09:59)
[2018-12-21] MEDS: Pantoprazole 40 MG GRANULES PACKET PER TUBE SCH (10:00)
[2018-12-21] MEDS: Apixaban 5 MG TAB PER TUBE SCH (10:00)
[2018-12-21] MEDS: Furosemide 20 MG TAB PER TUBE SCH (10:00)
[2018-12-21] MEDS: Polyethylene Glycol 3350 17 GM Packet PER TUBE SCH (10:02)
[2018-12-21] MEDS: Gabapentin 300 MG CAP PO SCH (10:30)
[2018-12-21] MEDS: Terbinafine 1% 30 GM TUBE TOP SCH (10:32)
[2018-12-21] MEDS: Acetaminophen/Codeine 30-300mg Tablet PER TUBE PRN (12:21)
[2018-12-21 14:59] VITALS: TEMP 98
--- NOTE | 2018-12-22 13:23 | DIS ---
DATE OF ADMISSION: 12/10/2018 DATE OF DISCHARGE: 12/21/2018 ADMITTING DIAGNOSES: 1. Possible gastrointestinal bleeding with vomiting and acute anemia. 2. Chronic atrial fibrillation. 3. Hypertension. 4. Status post CVA with right hemiparesis and aphasia. FINAL DIAGNOSES: 1. Severe nausea, vomiting, questionable gastrointestinal bleeding. 2. Enteroenteric intussusception, status post resection. 3. 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 4. Atrial fibrillation, rapid ventricular rate, improved. 5. Hypertension, uncontrolled, improved. 6. Status post cerebrovascular accident with right hemiparesis and aphasia. BRIEF SUMMARY OF HOSPITAL COURSE: Mr. Santoyo is a 68-year-old male, admitted because of continuous nausea and vomiting. It is suspected he had GI bleeding because of gastric stromal ulcer. The patient was evaluated by General Surgery as well as GI. GI, Dr. Smallwood saw him first and suggested EGD. EGD was done and it did not show any evidence of anemia or bleeding. He suggested a preparation with colonoscopy. The patient was given GoLYTELY, which he was unable to drink well. A CT scan of the abdomen done, which revealed GoLYTELY not passing through the intestine. CT scan of the abdomen confirmed enteroenteric intussusception at the level of the proximal jejunum with associated long segment bowel wall thickening and dilatation. Also, there is distention in gallbladder with multifocal internal increased density, suggested a gallbladder ultrasound. The patient underwent abdominal ultrasound which confirmed gallbladder mass. Surgical consult was done. The patient was seen by Dr. Mckay. The patient underwent surgery, resection was done. Specimen sent to the pathology, which confirmed adenocarcinoma of the small intestine and possible cancer in the gallbladder. 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 Suggested outpatient followup for management. Meanwhile, the patient is being treated for this postsurgically. The patient developed atrial fibrillation with rapid ventricular rate. He was started on Cardizem infusion initially, then later he was started on Cardizem p.o. by NG tube. The patient's blood pressure initially was uncontrolled, but improved with addition of Cardizem. The patient was started on tube feeding eventually and he tolerated the tube feeding very well and his vital signs have been stable, so in view of that, he is being discharged back to correction. At the time of discharge, he was stable with vital signs stable. Lungs clear. Heart sounds regular. Abdomen is soft and nontender. Bowel sounds present. DISCHARGE MEDICATIONS: Include; 1. MiraLAX 17 g daily. 2. Metoprolol 100 mg b.i.d. 3. Milk of magnesia p.r.n. 4. Lamisil cream as directed. 5. Dulcolax p.r.n. 6. Melatonin 6 mg at bedtime. 7. Eliquis 5 mg b.i.d. 8. Tylenol with codeine t.i.d. p.r.n. 9. Lasix 20 mg daily. 10. Tylenol p.r.n. 11. Losartan 100 mg daily. 12. Gabapentin 300 b.i.d. 13. BuSpar 5 mg t.i.d. 14. Sertraline 50 mg daily. 15. Lipitor 40 mg daily. 16. Symmetrel 10 mL b.i.d. 17. Zofran p.r.n. 18. Diltiazem 120 mg daily. 19. Vancomycin 125 mg q.i.d. for 10 days. The patient developed diarrhea and he was found to have C. difficile colitis, so he was started on vancomycin. The patient will be followed up in correction. Job ID: [id number]
--- NOTE | 2019-01-04 07:41 | OP ---
DATE OF PROCEDURE: 01/11/2019 PROCEDURES PERFORMED: Laparoscopic hand-assisted reduction of small bowel intussusception and small-bowel resection and laparoscopic cholecystectomy. PREOPERATIVE DIAGNOSES: Small-bowel intussusception and gastric mass. POSTOPERATIVE DIAGNOSES: Small-bowel intussusception and gastric mass with a small bowel mass as the lead point. Both masses had a malignant appearance grossly. No visible or palpable metastasis. HISTORY OF PRESENT ILLNESS: Mr. Santoyo is a 68-year-old man who presented to the hospital with recurrent anemia, nausea and vomiting. EGD was unremarkable. He had a history of a previous gastric ulcer, but this had healed. He has a submucosal gastric mass, which is stable. Attempt was made to administer bowel prep to perform colonoscopy, but the stomach was not emptying, so a CT scan was performed which showed evidence of small bowel intussusception in the proximal jejunum. He was also noted to have an abnormal mass-like appearance within the fundus of the gallbladder, which was confirmed on ultrasound. The patient then developed abdominal pain and recommendation was made to proceed emergently to the operating room. Two doctor consent was obtained, but the patient's son did arrive shortly before he was taken back to the operating room and consented to the agreement on the patient's behalf as well. DESCRIPTION OF PROCEDURE: After informed consent was obtained and appropriate preoperative antibiotics were administered, the patient was taken to the operating room where he was placed in supine position and general endotracheal anesthesia was administered. He was prepped and draped in standard sterile fashion and a 6 cm midline incision made. Dissection was carried down to the fascia, which was entered. Under direct vision, some omental adhesions were taken down and the space was cleared circumferentially for placement of the GelPort. The GelPort was placed and carbon dioxide gas insufflated to an intraabdominal pressure of 15, which the patient tolerated well. The laparoscoped was advanced into the abdominal cavity and the abdominal cavity was carefully inspected. There was no evidence of bowel injury and the omental adhesions were adequately cleared. Additional dissecting trocars were placed first under the laparoscopic vision and the small bowel examined. The patient was found to have an intussusception of the proximal jejunum, which was able to be carefully reduced. There was found to be a lead point about 6 inches from the ligament of Treitz, which had a malignant appearance. This was hard to palpation and appeared to be internal. No abnormal lymph nodes could be palpated. Due to the location of the mass mesentery supplying the segment of small intestine was very short coming almost directly off the SMA, a segmental resection was performed down to the level of the SMA, taking the supplying mesentery but leaving adequate bowel to perform a stapled [id number] functional end-to-end anastomosis of the bowel proximal and distal. This was performed and the small bowel passed from the field. The mesenteric defect was closed and hemostasis verified. The angle of scar was reinforced with a Lembert suture and the anastomosis was palpated and was widely patent. Attention was then turned to cholecystectomy. The gallbladder was distended, but otherwise fairly normal in appearance. There were some omental adhesions, which were taken down through the avascular plane. The fundus was grasped and retracted superiorly and the infundibulum was grasped and retracted laterally. The serosa was stripped inferiorly at the level of the neck of the gallbladder. The cystic duct and artery were dissected free and traced clear to their insertion in the gallbladder. A critical view of safety was obtained and the cystic duct and artery were clipped and divided between clips. The gallbladder was then dissected off the gallbladder bed using hook electrocautery. The mass was palpable in the fundus of the gallbladder, but was not extending to the gallbladder bed and was not visible on the serosal surface. Both the small bowel specimen and the gallbladder were placed on the back table for a postoperative examination. The abdomen was irrigated and hemostasis verified. The gastric mass was not visible. There were dense omental adhesions obscuring the entire left upper quadrant and it was felt that taking these down could possibly injure the patient's PEG tube. Since the gastric resection was not felt to be feasible, currently the adhesions were not taken down as the mass was located along the lesser curvature and would have been difficult to visualize or palpate. The dissecting trocars were removed and hemostasis verified. The GelPort was then removed and Seprafilm placed below the hand port incision. The fascia was closed with a running PDS suture and the skin incision was irrigated. The skin was then closed with a running subcuticular suture as were the laparoscopic sites. Dermabond dressings were placed and the patient was taken to Recovery in stable condition. The small bowel and gallbladder were opened on the back table and there were firm mucosally based masses, which grossly appeared malignant. These were sent to Pathology for permanent section. Job ID: [id number]
== END 2018-12-21 17:09 | DRG 329 ==
LOC: ERS 16:01 → IMCU/EMU 22:24
PROVIDERS: ADMIT Internal Medicine; ATTEND Family Medicine
PROC: 30233N1 Transfusion of Nonautologous Red Blood Cells into Peripheral Vein, Percutaneous Approach (ICD-10-PCS; 2018-12-10)
PROC: 0DJ08ZZ Inspection of Upper Intestinal Tract, Via Natural or Artificial Opening Endoscopic (ICD-10-PCS; 2018-12-11)
PROC: 0DB84ZZ Excision of Small Intestine, Percutaneous Endoscopic Approach (ICD-10-PCS; principal; 2018-12-12)
PROC: 0DSA4ZZ Reposition Jejunum, Percutaneous Endoscopic Approach (ICD-10-PCS; 2018-12-12)
PROC: 0FT44ZZ Resection of Gallbladder, Percutaneous Endoscopic Approach (ICD-10-PCS; 2018-12-12)
DX: C17.1 Malignant neoplasm of jejunum (principal); K25.4 Chronic or unspecified gastric ulcer with hemorrhage; I69.351 Hemiplegia and hemiparesis following cerebral infarction affecting right dominant side; K56.1 Intussusception; C23 Malignant neoplasm of gallbladder; I10 Essential (primary) hypertension; I48.2 Chronic atrial fibrillation; D64.9 Anemia, unspecified; I69.320 Aphasia following cerebral infarction; G89.29 Other chronic pain; K80.80 Other cholelithiasis without obstruction; E78.00 Pure hypercholesterolemia, unspecified; Z93.1 Gastrostomy status; Z87.891 Personal history of nicotine dependence
CPT/HCPCS: 36415; 36430; 74018; 74176; 76705; 80048; 80053; 81479; 82274; 82565; 83690; 84484; 85007; 85014; 85018; 85025; 85027; 85049; 86850; 86900; 86901; 87324; 87449; 88304; 88309; 88361; 93005; 93010; 93306; 94760; 96374; C9113; J0131; J0694; J1160; J1642; J1940; J2001; J2060; J2270; J2370; J2405; J2704; J3010; J3480; J3490; P9016; Q9967

== ENCOUNTER 2018-12-25 17:50 | Inpatient (IN) | payer MEDICARE, OTHER ==
[2018-12-25 19:18] LABS: #Basophils 0.1 thou/uL (0.0-0.2); #Eosinphils 0.1 thou/uL (0.0-0.7); #Lymphocytes 1.9 thou/uL (1.20-3.40); #Monocytes 0.7 thou/uL (0.11-0.59); #Neutrophils 7.7 thou/uL (1.40-6.50); %Basophils 0.8 % (0.0-1.0); %Eosinophils 0.7 % (0.0-10.0); %Lymphocytes 18.4 % (21.0-51.0); %Monocytes 6.7 % (0.0-10.0); %Neutrophils 73.5 % (42.0-75.0); Hemoglobin 7.8 g/dL (14.0-18.0); Mean Corpuscular HGB CONC 30.7 g/dL (32.0-36.0); Mean Corpuscular Hemoglobin 23.6 pg (27.0-31.0); Mean Corpuscular Volume 76.9 fL (78.0-98.0); Mean Platelet Volume 9.8 fL (7.4-10.4); Platelet Count 316 thou/uL (130-400); RBC Distribution Width 17.6 % (11.5-14.5); White Blood Cell (WBC) Count 10.4 thou/uL (4.8-10.8)
[2018-12-25 19:25] LABS: INR-International Normal Ratio 1.3; PTT 26.8 SEC (22.9-36.1); Prothrombin Time 15.7 SEC (12.0-14.7)
[2018-12-25 19:38] LABS: ALT (SGPT) 16 U/L (8-55); AST (SGOT) 13 U/L (5-34); Albumin 3.4 g/dL (3.4-4.8); Alkaline Phosphatase 143 U/L (40-150); Anion Gap 12 mmol/L (10-20); BUN (Urea Nitrogen) 27 mg/dL (8.4-25.7); Bilirubin, Total 0.2 mg/dL (0.2-1.2); Calc. Creatinine Clearance 0 mL/min (70-130); Calcium 8.7 mg/dL (7.8-10.44); Carbon Dioxide 27 mmol/L (23-31); Chloride 102 mmol/L (98-107); Estimated GFR-MDRD Greater than 90; Globulin 2.9 g/dL (2.4-3.5); Glucose 82 mg/dL (80-115); Potassium 4.4 mmol/L (3.5-5.1); Protein, Total 6.3 g/dL (5.8-8.1); Sodium 137 mmol/L (136-145)
[2018-12-25] MEDS ORDERED: Pantoprazole 40 MG VIAL ONE (19:49)
[2018-12-25] MEDS ORDERED: Pantoprazole 80 MG, Admixture Fee 1 EACH in Sodium Chloride 0.9% 100 ML IVPB SCH (20:00)
[2018-12-25] MEDS ORDERED: Ondansetron ODT 4 MG TAB SL PRN (21:03)
[2018-12-25] MEDS ORDERED: Ondansetron PF 4 MG/2 ML Vial IVP PRN (21:03)
[2018-12-26] MEDS ORDERED: Acetaminophen/Codeine 30-300mg Tablet PO PRN (02:20)
[2018-12-26] MEDS ORDERED: Bisacodyl 10 MG SUPP PR PRN (02:21)
[2018-12-26] MEDS ORDERED: Milk Of Magnesia 30 ML UDCUP PO PRN (02:22)
[2018-12-26 04:12] VITALS: BMI 28.0
[2018-12-26] MEDS: Sodium Chloride 0.9% 1,000 ML IV SCH ×2 (06:07→06:36)
[2018-12-26] MEDS ORDERED: Furosemide 20 MG TAB PO SCH (09:00)
[2018-12-26] MEDS: busPIRone HCl 5 MG TAB PO SCH ×3 (09:09→21:08)
[2018-12-26] MEDS: Atorvastatin Calcium 40 MG TAB PO SCH (09:13)
[2018-12-26] MEDS: Losartan 25 MG TAB PO SCH (09:13)
[2018-12-26] MEDS: Gabapentin 300 MG CAP PO SCH ×2 (09:13→21:08)
[2018-12-26] MEDS: Amantadine HCl 100 mg Capsule PO SCH ×2 (09:13→21:08)
[2018-12-26] MEDS: Polyethylene Glycol 3350 17 GM Packet PO SCH (09:13)
[2018-12-26] MEDS: Terbinafine 1% 30 GM TUBE TOP SCH (10:05)
[2018-12-26 13:01] LABS: #Eosinphils 0.1 thou/uL (0.0-0.7); #Lymphocytes 1.9 thou/uL (1.20-3.40); #Monocytes 0.6 thou/uL (0.11-0.59); #Neutrophils 8.2 thou/uL (1.40-6.50); %Basophils 0.3 % (0.0-1.0); %Eosinophils 0.6 % (0.0-10.0); %Lymphocytes 17.5 % (21.0-51.0); %Monocytes 5.2 % (0.0-10.0); %Neutrophils 76.3 % (42.0-75.0); Hemoglobin 9.8 g/dL (14.0-18.0); Mean Corpuscular HGB CONC 32.3 g/dL (32.0-36.0); Mean Corpuscular Hemoglobin 25.8 pg (27.0-31.0); Mean Corpuscular Volume 79.6 fL (78.0-98.0); Mean Platelet Volume 8.6 fL (7.4-10.4); Platelet Count 324 thou/uL (130-400); RBC Distribution Width 17.8 % (11.5-14.5); White Blood Cell (WBC) Count 10.7 thou/uL (4.8-10.8)
[2018-12-26] MEDS: Vancomycin HCl 25 MG/ML Oral PO SCH ×4 (14:32→21:09)
[2018-12-26] MEDS ORDERED: Lorazepam 2 MG/ML VIAL ONE (16:10)
[2018-12-26] MEDS ORDERED: Lorazepam 2 MG/ML VIAL SLOW IVP SCH (16:45)
--- NOTE | 2018-12-26 17:40 | NM ---
Exam: Nuclear medicine abdominal bleeding pyrophosphate scan: HISTORY: Small bowel resection, melena, anemia Patient was injected with 27.3 mCi technetium 99m tagged red blood cells intravenously. Flow images are unremarkable. Imaging out to 91 minutes was performed. No scan evidence for active GI bleed. IMPRESSION: No scan evidence for active GI bleed.
--- NOTE | 2018-12-26 17:51 | CON ---
DATE OF CONSULTATION: 12/26/2018 CHIEF COMPLAINT: Blood in the stool. HISTORY OF PRESENT ILLNESS: Mr. Santoyo is a 68-year-old man, who was been long-term bound due to past stroke. He was just discharged from the hospital on 12/21/2018 after he was admitted with GI bleed and ultimately found to have an adenocarcinoma in the small intestine, status post surgical resection on 12/13/2018. The patient is aphasic. However, the hospital nurse spoke to the long-term nurse, who reported that the patient had dark bloody stools, possibly with some clots last night. He was sent to the ER for further evaluation. The patient is unable to communicate, but he is found to have jet black melenic stool in his diaper. 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 PAST SURGICAL HISTORY: PEG tube placement, recent small bowel resection, also cholecystectomy at the same time with adenocarcinoma arising from an adenomatous polyp within the gallbladder. FAMILY HISTORY: Negative for GI malignancy. SOCIAL HISTORY: Former alcohol abuse. No recent alcohol, tobacco, or drugs. He has been a long-term resident. ALLERGIES: NO KNOWN DRUG ALLERGIES. MEDICATIONS: At the time of discharge a few days ago included, 1. MiraLAX. 2. Metoprolol. 3. Melatonin. 4. Eliquis. 5. Lasix. 6. Losartan. 7. Gabapentin. 8. BuSpar. 9. Sertraline. 10. Lipitor. 11. Symmetrel. 12. Diltiazem. 13. Vancomycin. REVIEW OF SYSTEMS: Negative x10 systems reviewed except as stated in history of present illness. PHYSICAL EXAMINATION: VITAL SIGNS: Temperature 97.5, pulse 85, and blood pressure 162/96. GENERAL: He is in no acute distress. He is awake and alert, but aphasic and unable to even answer yes or no questions. HEENT: His eyes have no scleral icterus. Oropharynx is unable to be assessed as he will not open his mouth when requested. He has no cervical or supraclavicular lymphadenopathy. LUNGS: Clear to auscultation bilaterally. HEART: Regular rate and rhythm without murmur. ABDOMEN: Soft. There is no guarding or obvious tenderness. His bowel sounds are present. EXTREMITIES: No lower extremity edema. There is right-sided weakness and hemiparesis. His diaper has black melenic stool in it. LABORATORY DATA: Creatinine 0.99, bilirubin 0.2, AST 13, ALT 16, alkaline phosphatase 143, albumin 3.4, INR 1.3. White blood cell count 10.4, hemoglobin was 7.8 in the ER last night, platelets 316. He has been a difficult stick for repeat blood draw. He did receive blood transfusion 1 unit last night and 1 early this morning. IMPRESSION: 1. Gastrointestinal bleed presenting with melena. He just had EGD by Dr. Smallwood on 12/11/2018, which showed a submucosal polypoid lesion along the lesser curvature consistent with the patient's previously diagnosed gastrointestinal stromal tumor. There was no ulceration or signs of recent bleeding related to that at that time. He has a relatively new anastomosis in the small intestine from small bowel resection on 12/12/2018. This should be healed at this point, however, given his use of Eliquis, it could increase the risk for bleeding from that site. I will request an abdominal nuclear medicine bleeding scan to help differentiate site for bleeding. 2. Anemia of acute blood loss. 3. Atrial fibrillation on chronic anticoagulation with Eliquis. The timing of his last dose of the Eliquis is not known. However, it appears that he was in the hospital last night and therefore, his most likely most recent dose would have been yesterday morning. 4. Clostridium difficile colitis diagnosed with positive toxin on 12/17/2018. He has been on oral vancomycin for that. 5. Recently diagnosed adenocarcinoma of both the gallbladder and small bowel segment. 6. History of stroke with aphasia and right hemiparesis. RECOMMENDATIONS: 1. Transfuse as necessary. 2. Follow trend of the hemoglobin. 3. Hold Eliquis. 4. Abdominal nuclear medicine bleeding scan. 5. Continue vancomycin. 6. Recommend General Surgery followup as well considering possible bleeding source in the small intestine at the anastomosis. 7. Oncology followup may be helpful as well. Job ID: [id number]
[2018-12-26] MEDS: Metoprolol Tartrate 100 MG TAB PO SCH ×2 (17:54→21:09)
[2018-12-26] MEDS ORDERED: Prevnar 13-Val Conj/PF 0.5 ML SYRINGE IM ONE (21:00)
[2018-12-26] MEDS: Melatonin 3 MG TAB PO SCH (21:08)
[2018-12-26] MEDS: Pantoprazole 40 MG VIAL IVP SCH (21:09)
[2018-12-26] MEDS: Sodium Chloride 0.9% (PF) 10 ML VIAL FS PRN (21:09)
[2018-12-27 05:22] LABS: #Basophils 0.1 thou/uL (0.0-0.2); #Eosinphils 0.1 thou/uL (0.0-0.7); #Lymphocytes 1.3 thou/uL (1.20-3.40); #Monocytes 0.6 thou/uL (0.11-0.59); #Neutrophils 8.1 thou/uL (1.40-6.50); %Basophils 0.6 % (0.0-1.0); %Eosinophils 1.3 % (0.0-10.0); %Lymphocytes 13.1 % (21.0-51.0); %Monocytes 5.6 % (0.0-10.0); %Neutrophils 79.5 % (42.0-75.0); Hemoglobin 8.6 g/dL (14.0-18.0); Mean Corpuscular HGB CONC 31.2 g/dL (32.0-36.0); Mean Corpuscular Hemoglobin 25.1 pg (27.0-31.0); Mean Corpuscular Volume 80.6 fL (78.0-98.0); Mean Platelet Volume 8.4 fL (7.4-10.4); Platelet Count 342 thou/uL (130-400); RBC Distribution Width 17.9 % (11.5-14.5); Red Blood Cell (RBC) Count 3.42 mill/uL (4.70-6.10); White Blood Cell (WBC) Count 10.2 thou/uL (4.8-10.8)
[2018-12-27 05:45] LABS: Anion Gap 12 mmol/L (10-20); BUN (Urea Nitrogen) 17 mg/dL (8.4-25.7); Calc. Creatinine Clearance 84 mL/min (70-130); Calcium 8.8 mg/dL (7.8-10.44); Carbon Dioxide 25 mmol/L (23-31); Chloride 106 mmol/L (98-107); Estimated GFR-MDRD 79; Glucose 86 mg/dL (80-115); Sodium 139 mmol/L (136-145)
[2018-12-27] MEDS: busPIRone HCl 5 MG TAB PO SCH ×3 (08:32→22:23)
[2018-12-27] MEDS: Losartan 25 MG TAB PO SCH (08:33)
[2018-12-27] MEDS: Metoprolol Tartrate 100 MG TAB PO SCH ×2 (08:35→22:23)
[2018-12-27] MEDS: Atorvastatin Calcium 40 MG TAB PO SCH (08:35)
[2018-12-27] MEDS: Amantadine HCl 100 mg Capsule PO SCH ×2 (08:36→22:23)
[2018-12-27] MEDS: Gabapentin 300 MG CAP PO SCH ×2 (08:37→22:23)
[2018-12-27] MEDS: Sodium Chloride 0.9% (PF) 10 ML VIAL FS PRN ×2 (08:38→22:32)
[2018-12-27] MEDS: Pantoprazole 40 MG VIAL IVP SCH ×2 (08:38→22:32)
[2018-12-27] MEDS: Polyethylene Glycol 3350 17 GM Packet PO SCH (08:39)
[2018-12-27] MEDS: Terbinafine 1% 30 GM TUBE TOP SCH (09:05)
[2018-12-27] MEDS: Vancomycin HCl 25 MG/ML Oral PO SCH ×4 (09:07→22:23)
--- NOTE | 2018-12-27 11:36 | HP ---
CHIEF COMPLAINT: GI bleeding. HISTORY OF PRESENT ILLNESS: Mr. Santoyo is a 68-year-old with ongoing past medical history of CVA with aphasia, chronic atrial fibrillation, and recent resection of invasive adenocarcinoma of the small intestine and cholecystectomy, who was admitted to having GI bleeding, has some dark blood per rectum according to [facility] staff. He did not have any nausea or vomiting. No abdominal pain. No fever. In view of his new onset of bleeding, he was sent to the hospital. In the ER, the patient was evaluated and found to have anemia, but no acute severe bleeding. He hemodynamically stable. He was started on Protonix and admitted for further evaluation and management. The patient was also advised transfusion. PAST MEDICAL HISTORY: 1. Status post CVA with right hemiparesis and aphasia. 2. Recent resection of small-bowel due to adenocarcinoma of the small intestine and also had adenocarcinoma of the gallbladder. Also had C. difficile colitis, still on treatment. 3. Chronic atrial fibrillation. 4. Hypertension. 5. Chronic anemia. PAST SURGICAL HISTORY: Status post cholecystectomy, status post resection of small-bowel, and status post PEG tube placement. CURRENT MEDICATIONS: 1. Tylenol #3 q.8 hours p.r.n. 2. Amantadine 100 mg b.i.d. 3. Eliquis 5 mg b.i.d. 4. Atorvastatin 40 mg daily. 5. Dulcolax 10 mg daily. 6. BuSpar 5 mg t.i.d. 7. Diltiazem 120 mg daily. 8. Lasix 20 mg daily. 9. Gabapentin 300 mg b.i.d. 10. Losartan 100 mg daily. 11. Milk of magnesia p.r.n. 12. Melatonin 6 mg at bedtime. 13. Metoprolol 100 mg mg b.i.d. 14. MiraLAX 17 g daily. 15. Sertraline 50 mg daily. 16. Vancomycin 125 mg p.o. q.8 b.i.d. for his C. difficile colitis. ALLERGIES: NKDA. FAMILY HISTORY: Nothing contributory. SOCIAL HISTORY: The patient lives alone. No history of smoking. No history of alcohol intake. REVIEW OF SYSTEMS: CARDIOVASCULAR: No chest pain. No shortness of breath. RESPIRATORY: No fever or cough. GASTROINTESTINAL: Has rectal bleeding. No abdominal pain. PHYSICAL EXAMINATION: GENERAL: The patient is alert, awake. VITAL SIGNS: Temperature 98, pulse 66, respirations 20, blood pressure 120/60. HEENT: Head is normocephalic, atraumatic. Pupils are equal and reactive. Nasopharynx is pale and dry. Hard and soft palate, no lesions. SKIN: Turgor decreased. NECK: Supple. No JVD. LUNGS: Bilateral air entry present. No rales. No rhonchi. HEART: S1 and S2. Irregularly irregular. ABDOMEN: Soft. No distention. No tenderness. Normal bowel sounds present. RECTAL: Revealed melena stool. CENTRAL NERVOUS SYSTEM: Right hemiparesis. LABORATORY DATA: CBC shows WBC 10, hemoglobin 7.8, hematocrit 25, platelets 316. Metabolic panel; sodium 137, potassium 4.4, chloride 102, CO2 of 27, BUN 27, creatinine 0.9, glucose 82. Prothrombin time 15, INR 1.3. EKG showed atrial fibrillation with controlled rate of 68. ASSESSMENT: 1. Acute gastrointestinal bleeding. 2. Anemia secondary to #1. 3. Chronic atrial fibrillation, rate controlled. 4. History of adenocarcinoma of the small bowel, status post resection. 5. History of gallbladder adenocarcinoma, status post cholecystectomy. 6. History of Clostridium difficile colitis, on treatment. 7. Status post cerebrovascular accident with right hemiparesis and aphasia. 8. Hypertension. PLAN: 1. Vital signs q.4 hours. 2. Activity, as tolerated. 3. Allergies, NKDA. 4. Hep-Lock. 5. Diet, n.p.o. except medications. 6. Transfuse 2 units of packed red blood cells. 7. Continue [facility]p medications. 8. GI consult. 9. Repeat CBC after transfusion. Job ID: [id number]
--- NOTE | 2018-12-27 13:37 | PRG ---
DATE OF SERVICE: 12/27/2018 SUBJECTIVE: Mr. Santoyo has had no further bleeding since admission. His blood thinner has been stopped. He is nonverbal. MEDICATIONS: 1. Tylenol No. 3. 2. Amantadine. 3. Lipitor. 4. Dulcolax. 5. BuSpar. 6. Cardizem. 7. Neurontin. 8. Cozaar. 9. Milk of magnesia. 10. Melatonin. 11. Lopressor. 12. Protonix. 13. Zoloft. 14. IV fluids. 15. Vancomycin. OBJECTIVE: VITAL SIGNS: Temperature 97, pulse 75, blood pressure 128/79. ABDOMEN: Soft, nontender. Incisions are well healed. LABORATORY DATA: White blood count is 10.2, hemoglobin is 8.6, platelet count is 342. ASSESSMENT: 1. History of gastric mass on endoscopy, 06/21/2018. This was ulcerated and showed stigmata of bleeding. He was transferred to [place] for possible surgery. Apparently, Surgery was not performed. On repeat endoscopy by Dr. Smallwood on 12/11, the mass was seen, but was not ulcerated, however. This apparently was not removed in his recent surgery. I would recommend he continue on PPI indefinitely. 2. Recent readmission for gastrointestinal bleed, 12/11, with normal EGD, and then during attempted prep for colonoscopy, the patient had nausea, vomiting. Underwent a CAT scan showing intussusception of the small bowel. Subsequently, underwent operation, had adenocarcinoma removed from the small bowel and gallbladder was removed, which showed adenocarcinoma as well. 3. Now readmitted about 2 weeks after discharge. He was on blood thinners again. Tagged scan was negative last night. Bleeding is likely related to recent surgeries. RECOMMENDATION: 1. Continue PPI indefinitely. 2. Hold anticoagulation. We will follow. Job ID: [id number]
[2018-12-27] MEDS: Melatonin 3 MG TAB PO SCH (22:23)
[2018-12-28 06:03] LABS: Hemoglobin 8.9 g/dL (14.0-18.0)
[2018-12-28] MEDS: Sodium Chloride 0.9% (PF) 10 ML VIAL FS PRN ×2 (08:13→21:54)
[2018-12-28] MEDS: Pantoprazole 40 MG VIAL IVP SCH ×2 (08:13→21:54)
[2018-12-28] MEDS: busPIRone HCl 5 MG TAB PO SCH ×3 (08:13→21:53)
[2018-12-28] MEDS: Vancomycin HCl 25 MG/ML Oral PO SCH ×4 (08:13→21:54)
[2018-12-28] MEDS: Metoprolol Tartrate 100 MG TAB PO SCH ×2 (08:14→21:54)
[2018-12-28] MEDS: Atorvastatin Calcium 40 MG TAB PO SCH (08:15)
[2018-12-28] MEDS: Amantadine HCl 100 mg Capsule PO SCH ×2 (08:15→21:53)
[2018-12-28] MEDS: Losartan 25 MG TAB PO SCH (08:16)
[2018-12-28] MEDS: Polyethylene Glycol 3350 17 GM Packet PO SCH (08:17)
[2018-12-28] MEDS: Terbinafine 1% 30 GM TUBE TOP SCH (08:21)
[2018-12-28] MEDS: Gabapentin 300 MG CAP PO SCH ×2 (09:22→21:53)
--- NOTE | 2018-12-28 18:31 | PRG ---
DATE OF SERVICE: 12/28/2018 SUBJECTIVE: Mr. Santoyo has been eating fine. He has had no overt bleeding. OBJECTIVE: VITAL SIGNS: Temperature 97, pulse 85, blood pressure 160/99. ABDOMEN: Soft, nontender. LABORATORY DATA: Hemoglobin is 8.9. ASSESSMENT: Gastrointestinal bleeding, resolved, likely postoperative in nature as he had recent upper endoscopy, which was nondiagnostic. He never did have a colonoscopy, however, secondary to his small bowel obstruction from a small tumor that was removed. RECOMMENDATIONS: I think that the he should go home tomorrow. I talked to Dr. Mcnulty about this, so I would maybe wait 5 to 7 days for restarting his Eliquis again. He has outpatient followup with Oncology. Job ID: [id number]
[2018-12-28] MEDS: Melatonin 3 MG TAB PO SCH (21:53)
[2018-12-29] MEDS: Atorvastatin Calcium 40 MG TAB PO SCH (08:28)
[2018-12-29] MEDS: Losartan 25 MG TAB PO SCH (08:28)
[2018-12-29] MEDS: busPIRone HCl 5 MG TAB PO SCH (08:29)
[2018-12-29] MEDS: Polyethylene Glycol 3350 17 GM Packet PO SCH (08:31)
[2018-12-29] MEDS: Metoprolol Tartrate 100 MG TAB PO SCH (08:31)
[2018-12-29] MEDS: Amantadine HCl 100 mg Capsule PO SCH (08:32)
[2018-12-29] MEDS: Vancomycin HCl 25 MG/ML Oral PO SCH ×2 (08:32→12:57)
[2018-12-29] MEDS: Pantoprazole 40 MG VIAL IVP SCH (08:33)
[2018-12-29] MEDS: Gabapentin 300 MG CAP PO SCH (08:33)
[2018-12-29] MEDS: Terbinafine 1% 30 GM TUBE TOP SCH (08:34)
[2018-12-29] MEDS: Sodium Chloride 0.9% (PF) 10 ML VIAL FS PRN (08:34)
[2018-12-29 14:12] VITALS: BP 136/74; TEMP 97.8
== END 2018-12-29 13:11 | DRG 920 ==
LOC: ERS 17:50 → OBSVTOIN 20:52 → T4-A 20:52
PROVIDERS: ADMIT Internal Medicine; ATTEND Internal Medicine
DX: K91.840 Postprocedural hemorrhage of a digestive system organ or structure following a digestive system procedure (principal); K92.2 Gastrointestinal hemorrhage, unspecified; I69.351 Hemiplegia and hemiparesis following cerebral infarction affecting right dominant side; D62 Acute posthemorrhagic anemia; C23 Malignant neoplasm of gallbladder; Y83.9 Surgical procedure, unspecified as the cause of abnormal reaction of the patient, or of later complication, without mention of misadventure at the time of the procedure; I48.2 Chronic atrial fibrillation; I10 Essential (primary) hypertension; B18.2 Chronic viral hepatitis C; F32.9 Major depressive disorder, single episode, unspecified; Z87.891 Personal history of nicotine dependence; Z79.899 Other long term (current) drug therapy; Z79.01 Long term (current) use of anticoagulants; Z85.068 Personal history of other malignant neoplasm of small intestine; Z90.49 Acquired absence of other specified parts of digestive tract
CPT/HCPCS: 36415; 36416; 36430; 78278; 80048; 80053; 82274; 85014; 85018; 85025; 85610; 85730; 86850; 86900; 86901; 93005; 96374; 96376; A9604; C9113; J2060; J3490; P9016

== ENCOUNTER 2019-01-31 08:01 | Outpatient (CLI) | payer OTHER ==
--- NOTE | 2019-01-31 11:06 | CT ---
CHEST AND ABDOMEN AND PELVIS CT SCAN WITH IV CONTRAST: HISTORY: History of gallbladder cancer, prior cholecystectomy. COMPARISON: 12/12/2018. FINDINGS: Minimal scattered bullous changes with some heterogeneous groundglass opacity changes throughout both lungs and appearance of bilateral vascular congestion. Cardiomegaly with a small amount of pericardial effusion. No significant pleural effusion. 3 vessel coronary artery calcific disease. No mediastinal mass or adenopathy. Slightly heterogeneous thyroid gland bilaterally. Status post cholecystectomy with some very borderline size intrahepatic ducts. 1.0 cm diameter low-de nsity focus in the posterior dome of the right lobe of the liver, which appears new from the prior study, raising concern for possible small liver metastasis. The pancreas and spleen are unremarkable. Both right and left adrenal glands are enlarged and show multiple nodules up to 1.5 cm bilaterally, a nonspecific finding. If there is concern for the adrenal glands, consider follow-up wi th and without contrast abdomen CT scan with adrenal mass protocol. The kidneys appear unremarkable with a probable small right renal cyst. No renal calculi or acute obstruction. No retroperitoneal adenopathy. IMPRESSION: 1. 1 cm diameter low-density focus in the posterior dome of the right lobe of the liver not definite ly seen on prior study raising concern for small metastasis. 2. Enlarged very nodular adrenal glands bilaterally, nonspecific. Consider follow-up as above. 3. Postop cholecystectomy. 4. Cardiomegaly with minimal pericardial effusion. 5. Diffuse bilateral groundglass opacity changes evidence for bilateral vascular congestion. Transcribed Date/Time: 01/31/2019 11:28 AM
[2019-01-31] MEDS ORDERED: Iopamidol 370 76% 100 ML VIAL ONE (14:34)
== END 2019-01-31 08:02 | disposition home or self-care (01) ==
LOC: CT 08:01
PROVIDERS: ATTEND Internal Medicine Hematology & Oncology
DX: Z08 Encounter for follow-up examination after completed treatment for malignant neoplasm (principal); E27.8 Other specified disorders of adrenal gland; I51.7 Cardiomegaly; I31.3 Pericardial effusion (noninflammatory); R91.8 Other nonspecific abnormal finding of lung field; R09.89 Other specified symptoms and signs involving the circulatory and respiratory systems; Z90.49 Acquired absence of other specified parts of digestive tract
CPT/HCPCS: 71260; 74177; 82565; Q9967

== ENCOUNTER 2019-07-28 05:25 | Inpatient (IN) | payer MEDICARE, MEDICAID ==
[2019-07-28] MEDS ORDERED: Lorazepam 2 MG/ML VIAL ONE (05:37)
[2019-07-28 05:56] LABS: Hemoglobin 13.4 g/dL (14.0-18.0); Mean Corpuscular HGB CONC 32.5 g/dL (32.0-36.0); Mean Corpuscular Hemoglobin 27.7 pg (27.0-31.0); Mean Corpuscular Volume 85.2 fL (78.0-98.0); Mean Platelet Volume 8.6 fL (7.4-10.4); Platelet Count 169 thou/uL (130-400); RBC Distribution Width 13.1 % (11.5-14.5); Red Blood Cell (RBC) Count 4.85 mill/uL (4.70-6.10); White Blood Cell (WBC) Count 14.5 thou/uL (4.8-10.8)
[2019-07-28] MEDS ORDERED: Furosemide 40 MG/4 ML VIAL ONE (05:56)
[2019-07-28 06:03] LABS: Calcium 9.1 mg/dL (7.8-10.44); Chloride 103 mmol/L (98-107); Potassium 4.1 mmol/L (3.5-5.1); Sodium 137 mmol/L (136-145)
[2019-07-28 06:15] LABS: ALT (SGPT) 8 U/L (8-55); AST (SGOT) 13 U/L (5-34); Albumin 4.1 g/dL (3.4-4.8); Alkaline Phosphatase 87 U/L (40-110); BUN (Urea Nitrogen) 25 mg/dL (8.4-25.7); Bilirubin, Total 0.7 mg/dL (0.2-1.2); CK (CPK) 95 U/L (30-200); Calc. Creatinine Clearance 0 mL/min (70-130); Carbon Dioxide 20 mmol/L (23-31); Estimated GFR-MDRD 68; Globulin 3.5 g/dL (2.4-3.5); Glucose 128 mg/dL (80-115); Protein, Total 7.6 g/dL (5.8-8.1)
[2019-07-28] MEDS ORDERED: Nitroglycerin 50 MG/250 ML BOT 250 ML ONE (06:15)
[2019-07-28 06:16] LABS: Anion Gap 18 mmol/L (10-20); Band 1 % (5-11); Hypochromia SLIGHT = 6-15 cells (100X) (0-5/hpf); Lymphocytes 5 % (21-51); MDiff Complete? YES; Monocytes 5 % (0-10); Neutrophil 89 % (42-75); Platelet Morphology Comment Appears Adequate
[2019-07-28 06:49] LABS: CKMB 1.9 ng/mL (0-6.6)
--- NOTE | 2019-07-28 07:53 | RAD ---
Chest AP view INDICATION: Dyspnea COMPARISON: Prior exam dated June 20, 2018 FINDINGS: Lungs:There are bilateral airspace opacities with more lukas consolidation seen within the left midlu ng Cardiac silhouette:There is moderate cardiomegaly Pulmonary vasculature:There is mild pulmonary vascular congestion Pleural spaces:There is a small right and tiny left pleural effusion Upper abdomen:No abnormality seen. Osseous structures: No acute osseous abnormality. Additional findings:None. IMPRESSION: 1. Findings of mild cardiac decompensation. 2. Bilateral airspace opacities may reflect airspace edema; however, pneumonia could have a similar a ppearance.
[2019-07-28] MEDS ORDERED: Nitroglycerin 50 MG/250 ML BOT 250 ML IVPB SCH (09:00)
[2019-07-28] MEDS: Diltiazem 125 MG in Sodium Chloride 0.9% 100 ML IVPB SCH ×2 (09:08→18:30)
[2019-07-28] MEDS: Enoxaparin Sodium 40 MG/0.4 ML SYRINGE SC SCH (09:13)
[2019-07-28] MEDS: Furosemide 40 MG/4 ML VIAL SLOW IVP SCH (09:13)
[2019-07-28] MEDS: Pantoprazole 40 MG VIAL IVP SCH (09:14)
[2019-07-28 09:25] LABS: Troponin I 0.095 ng/mL (< 0.028)
--- NOTE | 2019-07-28 09:44 | CON ---
DATE OF CONSULTATION: 07/28/2019 30 minutes of critical time. REASON FOR CONSULTATION: ICU stay. HISTORY OF PRESENT ILLNESS: The patient is a 68-year-old who presented to the emergency room earlier today with increasing shortness of breath. He is nonverbal and is unable to give me any history. Apparently was tried on CPAP, but kept taking it off, so they are now just treating him with 100% non-rebreather. PAST MEDICAL HISTORY: 1. Stroke with right-sided hemiparesis and aphasia. 2. 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 3. C difficile colitis. 4. Chronic atrial fibrillation. 5. Hypertension. 6. Chronic anemia. PAST SURGICAL HISTORY: 1. Cholecystectomy. 2. Resection of small bowel. 3. PEG tube placement. MEDICATIONS: Prior to admission: 1. Acetaminophen with codeine 1 tablet three times a day as needed. 2. Amantadine 50 mg per tube twice daily. 3. Atorvastatin 40 mg per tube daily. 4. Melatonin 6 mg per tube at night. 5. Buspirone 5 mg three times daily. 6. Cardizem 120 mg daily. 7. Floranex per tube twice daily. 8. Gabapentin 300 mg per tube three times daily. 9. Hydralazine 50 mg per tube two times daily. 10. Metoprolol 100 mg per tube two times daily. 11. Furosemide 20 mg per tube once daily. 12. Losartan 25 mg per tube once daily. 13. Sertraline 50 mg daily. ALLERGIES: NONE. FAMILY HISTORY: Unremarkable. SOCIAL HISTORY: My guess is he lives in a snf. REVIEW OF SYSTEMS: Cannot be obtained as the patient is nonverbal. PHYSICAL EXAMINATION: VITAL SIGNS: Heart rate 130, blood pressure 148/112, O2 saturation 98%, and respiratory rate 20, 40, and 60. GENERAL: He is an elderly male, who is obtunded. He will wake up to voice. He tries to nod his head to questions, somewhat combative to exam. HEENT: Difficult to assess pupillary reflex because he will not hold his eyes open. Oropharynx looks dry. NECK: No JVD. LUNGS: Coarse breath sounds bilaterally. CARDIOVASCULAR: S1-S2 irregularly irregular. ABDOMEN: Large midline scar, well healed. Abdomen is soft. EXTREMITIES: No clubbing or cyanosis. LABORATORY DATA: Sodium 137, potassium 4.1, chloride 103, CO2 of 20, BUN 25, creatinine 1.2, glucose 128. Troponin 0.035. BNP 407, albumin 4.1. White blood cell count 14.5, hematocrit 41.3, and platelet count 169 with 89% neutrophils, 1% bands. His chest x-ray shows diffuse bilateral pulmonary infiltrates and cardiomegaly. ASSESSMENT: 1. Acute hypoxic respiratory failure which is either secondary to congestive heart failure or pneumonia. 2. Debilitated patient. 3. Status post stroke with right-sided hemiparesis and aphasia. 4. Chronic atrial fibrillation. 5. . PLAN: 1. The patient will be treated with antibiotics, diuretics, Cardizem for rate control his atrial fibrillation. I will check a procalcitonin level. We will put a Iyer and so we can better monitor his fluid status to see if he needs to be given any. 2. Enoxaparin for DVT prophylaxis. 3. Protonix for GI prophylaxis. 4. The patient is DNR. Job ID: [id number]
[2019-07-28] MEDS: Cefepime 1 GM in Sodium Chloride 0.9% 100 ML IVPB SCH ×2 (11:50→17:41)
[2019-07-28] MEDS ORDERED: Prevnar 13-Val Conj/PF 0.5 ML SYRINGE IM ONE (12:15)
[2019-07-28 12:47] LABS: Troponin I 0.101 ng/mL (< 0.028)
--- NOTE | 2019-07-28 19:59 | CON ---
DATE OF CONSULTATION: HISTORY OF PRESENT ILLNESS: Bryan Santoyo is a 68-year-old black male that I first started seeing in July 2018 with several office visits. His significant health problems began on 03/20/2018. He was admitted to [facility] in [place] with stroke and seizures. He was intubated, he had right-sided weakness. He was placed on anticoagulation for atrial fibrillation. Transthoracic echo revealed ejection fraction 40% to 45%. He was eventually sent to a correction in [place]. He was admitted here at [place] in May 2018, with upper gastrointestinal bleed. He was transferred back to [place], but apparently did not have any surgical intervention. I initially saw him in the office in July 2018 for increased peripheral edema. At that time, he was on amlodipine 10 mg daily and his blood pressure in the office was 80/52. Amlodipine was reduced to 5 mg daily. Echo revealed ejection fraction of 45% to 50% with mild left atrial enlargement, mild mitral regurgitation, mild tricuspid regurgitation. He was seen again in August 2018. The amlodipine was discontinued and losartan was increased from 25 to 50 mg daily. His heart rate was 107 per minute and was started on metoprolol 50 b.i.d. for better rate control. In September 2018, he had lost approximately 13 pounds with low-dose furosemide 20 mg daily and stopping the amlodipine. He was admitted in November 2018 with vomiting. He ultimately underwent surgery with resection of small bowel and cholecystectomy, both of which apparently revealed adenocarcinoma. He eventually was placed back on Eliquis. He was discharged, but was admitted 2 days later with gastrointestinal bleed and his Eliquis was discontinued. He was last seen in the office in March 2019. At that time, he appeared to be doing well. He now is admitted with increased shortness of breath, edema, and finding of pulmonary edema on chest x-ray. The patient is aphasic, cannot give any good history, but as best I can tell from trying to converse with them his breathing has improved and he denies any chest discomfort. PAST MEDICAL HISTORY: Hypertension, hypercholesterolemia, Clostridium difficile , chronic atrial fibrillation, left hemispheric CVA with resulting right-sided hemiparesis and aphasia. He can usually answer questions by shaking his head yes or no. MEDICATIONS: 1. Amantadine 100 mg b.i.d. 2. Atorvastatin 40 daily. 3. BuSpar 5 mg t.i.d. 4. Diltiazem 120 mg daily. 5. Furosemide 20 mg q.a.m. 6. Gabapentin 300 b.i.d. 7. Losartan 100 daily. 8. Milk of magnesia p.r.n. 9. Melatonin 6 mg at bedtime. 10. Metoprolol 100 b.i.d. 11. Pantoprazole 40 daily. 12. MiraLAX 17 g daily. 13. Sertraline 50 daily. 14. Vancomycin 125 mg q.i.d. ALLERGIES: NONE. SOCIAL HISTORY: He lives in a correction in [place]. REVIEW OF SYSTEMS: Unobtainable due to the patient's aphasia. PHYSICAL EXAMINATION: VITAL SIGNS: Blood pressure 164/90, pulse 101, atrial fibrillation. HEENT: PERRL. NECK: Supple. CHEST: Reveals crackles bilaterally. CARDIOVASCULAR: S1 and S2 normal without any S3, S4, or murmurs. ABDOMEN: Normal bowel sounds without tenderness. EXTREMITIES: Reveal 1 to 2+ edema of arms and legs. NEUROLOGICAL: The patient has right-sided hemiparesis and is aphasic. SKIN: Warm and dry. LABORATORY DATA: EKG reveals atrial fibrillation with low voltage in the limb leads. Hemoglobin 13.4, hematocrit 41.3, white count 14,500, platelets 169,000. Sodium 137, potassium 4.1, chloride 103, carbon dioxide 20, BUN 25, creatinine 1.28. Troponin I is up to 0.101. BNP 407.1. IMPRESSION: 1. Acute hypoxic respiratory failure, probably due to congestive heart failure with finding most consistent with pulmonary edema on chest x-ray, although pneumonia cannot be ruled out. 2. History of recurrent gastrointestinal bleeds while on anticoagulation. 3. Chronic atrial fibrillation. 4. Embolic left hemispheric cerebrovascular accident with resulting right hemiparesis and aphasia in February 2018. 5. Hypertension. 6. Hypercholesterolemia. 7. Former smoker. 8. 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 9. [id number] myocardial infarction type 2. PLAN: Mr. Santoyo will be diuresed. Echocardiogram will be performed to reassess left ventricular function. I will follow the patient with you. Job ID: [id number] MTDD
[2019-07-28] MEDS: Metoprolol Tartrate 100 MG TAB PO SCH (21:14)
--- NOTE | 2019-07-29 00:12 | HP ---
CHIEF COMPLAINT: Shortness of breath, hypoxia. HISTORY OF PRESENT ILLNESS: Mr. Santoyo is a 68-year-old male with past medical history of hypertension, status post CVA, nonambulatory, was found to be having respiratory distress with hypoxia. The patient has not been feeling well for the last couple of days, has not been eating very well. Did not have any chest pain, nausea, or vomiting. He was definitely found to be in some respiratory distress and O2 saturation in the 50%, so EMS was called. EMS found the patient with a blood pressure of 210/67, hypoxic. The patient was put on CPAP and given neb treatments continuously, also given nitroglycerin paste. In the ER, the patient was taking off CPAP continuously, so he was put on non-rebreather face mask. The patient was found to have markedly elevated blood pressure with hypertensive emergency, so he was started on nitroglycerin infusion and being admitted to CCU for further management. The patient was thought to have heart failure as well. He was given Lasix 40 in the ER. PAST MEDICAL HISTORY: 1. Hypertension. 2. Status post CVA. 3. Dysphagia status post PEG tube. 4. History of Clostridium difficile colitis. 5. History of chronic atrial fibrillation. 6. Chronic anemia. PAST SURGICAL HISTORY: 1. Status post cholecystectomy. 2. Status post resection of small intestine for adenocarcinoma. 3. Status post PEG tube placement. CURRENT MEDICATIONS: The patient is on: 1. Tylenol No.3 t.i.d. p.r.n. 2. Amantadine 50 mg daily. 3. Atorvastatin 40 mg daily. 4. Melatonin 6 mg at bedtime. 5. Buspirone 5 mg t.i.d. 6. Cardizem 120 daily. 7. Floranex daily. 8. Gabapentin 300 mg t.i.d. 9. Hydralazine 50 b.i.d. 10. Metoprolol 100 mg b.i.d. 11. Lasix 20 mg daily. 12. Losartan 25 mg daily. 13. Sertraline 50 mg daily. ALLERGIES: NKDA. FAMILY HISTORY: Nothing contributory. SOCIAL HISTORY: The patient lives at the shelter. No history of smoking. No history of alcohol intake. REVIEW OF SYSTEMS: Unable to obtain because the patient is aphasic. PHYSICAL EXAMINATION: GENERAL: The patient is alert, awake, not well oriented. VITAL SIGNS: Temperature 98, pulse 130, blood pressure 150/112, respirations 40. HEENT: Head is normocephalic, atraumatic. Pupils equal and reactive. Nasopharynx is pale and dry. NECK: Supple. No JVD. LUNGS: Breath sounds diminished bilaterally. Percussion dull bilaterally. Rales present at the bases. HEART: S1 and S2, irregularly irregular. ABDOMEN: Soft. There is a large midline scar. No tenderness. No guarding. Bowel sounds present. CENTRAL NERVOUS SYSTEM: No new deficit. LABORATORY DATA: CBC shows WBC 14, hematocrit 41, platelets 169. Metabolic panel; sodium 137, potassium 4, chloride 103, CO2 of 20, BUN 25, creatinine , glucose 128. Troponin I 0.035. BNP was 407. Chest x-ray shows diffuse bilateral pulmonary infiltrates and cardiomegaly. EKG shows atrial fibrillation with rapid ventricular rate, 112. ASSESSMENT: 1. Acute hypoxic respiratory failure, possibly secondary to either congestive heart failure or pneumonia or maybe both. 2. Status post cerebrovascular accident, nonambulatory patient. 3. Chronic atrial fibrillation with a rapid ventricular response. 4. Hypertension and hypertensive emergency. 5. Hyperlipidemia. 6. Chronic anemia. PLAN: 1. Vital signs q.4 hours. 2. Activities, as tolerated. 3. Allergies, NKDA. 4. Hep-Lock. 5. Lasix 40 mg IVP daily. 6. Cardizem infusion. 7. Continue shelter medications. 8. Pulmonary consult. 9. Cardiology consult. 10. Echocardiogram. 11. Cefepime 1 g IV piggyback q.8 hours. Job ID: [id number] [facility]
[2019-07-29] MEDS: Diltiazem 125 MG in Sodium Chloride 0.9% 100 ML IVPB SCH ×3 (00:49→20:27)
[2019-07-29] MEDS: Cefepime 1 GM in Sodium Chloride 0.9% 100 ML IVPB SCH ×3 (00:50→16:12)
[2019-07-29] MEDS: Acetaminophen 325 MG TAB PO PRN ×2 (01:28→20:20)
[2019-07-29 04:38] LABS: #Lymphocytes 0.7 thou/uL (1.20-3.40); #Monocytes 0.7 thou/uL (0.11-0.59); %Lymphocytes 4.5 % (21.0-51.0); %Neutrophils 90.5 % (42.0-75.0); Hemoglobin 11.3 g/dL (14.0-18.0); Mean Corpuscular HGB CONC 31.9 g/dL (32.0-36.0); Mean Corpuscular Hemoglobin 27.9 pg (27.0-31.0); Mean Corpuscular Volume 87.4 fL (78.0-98.0); Mean Platelet Volume 9.3 fL (7.4-10.4); Platelet Count 166 thou/uL (130-400); RBC Distribution Width 13.1 % (11.5-14.5); Red Blood Cell (RBC) Count 4.04 mill/uL (4.70-6.10); White Blood Cell (WBC) Count 14.4 thou/uL (4.8-10.8)
[2019-07-29 04:54] LABS: Anion Gap 15 mmol/L (10-20); BUN (Urea Nitrogen) 33 mg/dL (8.4-25.7); Calc. Creatinine Clearance 62 mL/min (70-130); Calcium 8.7 mg/dL (7.8-10.44); Carbon Dioxide 23 mmol/L (23-31); Chloride 106 mmol/L (98-107); Estimated GFR-MDRD 56; Glucose 129 mg/dL (80-115); Sodium 140 mmol/L (136-145)
[2019-07-29] MEDS ORDERED: Morphine 4 MG/ML VIAL ONE (07:14)
--- NOTE | 2019-07-29 07:42 | PRG ---
DATE OF SERVICE: 07/29/2019 TIME SPENT: 35 minutes of critical care time. SUBJECTIVE: The patient is having severe respiratory distress this morning. He is placed on BiPAP. Despite that, he is breathing about 50 times a minute. He has been fighting with nursing staff. It should be noted that he is also DNR. OBJECTIVE: VITAL SIGNS: His temperature is 100.0, pulse 98, blood pressure 165/77, and O2 saturation running in the 90s. HEENT: Unremarkable. NECK: No adenopathy or JVD. LUNGS: Coarse rhonchi. CARDIAC: S1 and S2. Regular. ABDOMEN: Soft. EXTREMITIES: No edema. LABORATORY DATA: Sodium 140, potassium 4, chloride 106, CO2 of 23, BUN 33, creatinine 1.5, and glucose 129. White blood cell count 14.4, hematocrit 35.4, and platelet count 166. ASSESSMENT: 1. Acute hypoxic respiratory failure. 2. Probable pneumonia. 3. Possible congestive heart failure. 4. Chronic atrial fibrillation. PLAN: He is in severe respiratory distress, but is DNR. I have gone ahead and put him on some morphine for comfort. He will continue the BiPAP. I will extend his antibiotic spectrum and add some steroids. Additionally, I have started on nebulization treatments. Despite this, his prognosis is extremely poor. Job ID: [id number]
--- NOTE | 2019-07-29 07:44 | RAD ---
Portable frontal chest radiograph: 07/29/2019 COMPARISON: 07/28/2019 HISTORY: Respiratory distress FINDINGS: Stable prominence of the cardiac silhouette. There is extensive interstitial and alveolar o pacity with airspace disease in the right upper lobe, lateral aspect of mid left lung zone, and right perihilar region. The interstitial and alveolar opacity has slightly worsened when compared to the prior exam. IMPRESSION: Extensive interstitial and alveolar opacity. Distribution favors infectious pneumonitis/a spiration. Edema cannot be excluded. Follow-up to resolution advised.
[2019-07-29] MEDS: Furosemide 40 MG/4 ML VIAL SLOW IVP SCH (08:02)
[2019-07-29] MEDS: Enoxaparin Sodium 40 MG/0.4 ML SYRINGE SC SCH (08:03)
[2019-07-29] MEDS: Metoprolol Tartrate 100 MG TAB PO SCH ×2 (08:37→20:20)
[2019-07-29] MEDS: Pantoprazole 40 MG VIAL IVP SCH (08:37)
[2019-07-29] MEDS: Vancomycin 1.5 GRAM/300 ML BAG 1.5 GM in Premix Bag 1 BAG IVPB SCH (08:59)
[2019-07-29] MEDS: Morphine 4 MG/ML VIAL SLOW IVP PRN ×5 (09:30→22:46)
[2019-07-29] MEDS: methylPREDNISolone Sod Succ 40 MG VIAL IVP SCH ×2 (11:03→17:21)
[2019-07-30] MEDS: Morphine 4 MG/ML VIAL SLOW IVP PRN ×9 (01:12→21:03)
[2019-07-30] MEDS: methylPREDNISolone Sod Succ 40 MG VIAL IVP SCH ×5 (01:13→23:12)
[2019-07-30] MEDS: Cefepime 1 GM in Sodium Chloride 0.9% 100 ML IVPB SCH ×3 (01:55→16:11)
[2019-07-30 04:29] LABS: #Lymphocytes 0.4 thou/uL (1.20-3.40); #Monocytes 0.4 thou/uL (0.11-0.59); #Neutrophils 12.7 thou/uL (1.40-6.50); %Basophils 0.1 % (0.0-1.0); %Monocytes 2.9 % (0.0-10.0); %Neutrophils 94.1 % (42.0-75.0); Hemoglobin 10.3 g/dL (14.0-18.0); Mean Corpuscular HGB CONC 31.3 g/dL (32.0-36.0); Mean Corpuscular Hemoglobin 27.8 pg (27.0-31.0); Mean Corpuscular Volume 88.7 fL (78.0-98.0); Mean Platelet Volume 9.3 fL (7.4-10.4); Platelet Count 144 thou/uL (130-400); RBC Distribution Width 12.9 % (11.5-14.5); Red Blood Cell (RBC) Count 3.72 mill/uL (4.70-6.10); White Blood Cell (WBC) Count 13.5 thou/uL (4.8-10.8)
[2019-07-30 04:53] LABS: Anion Gap 16 mmol/L (10-20); BUN (Urea Nitrogen) 64 mg/dL (8.4-25.7); Calc. Creatinine Clearance 39 mL/min (70-130); Calcium 9.1 mg/dL (7.8-10.44); Carbon Dioxide 25 mmol/L (23-31); Chloride 107 mmol/L (98-107); Estimated GFR-MDRD 32; Glucose 167 mg/dL (80-115); Sodium 144 mmol/L (136-145)
[2019-07-30] MEDS ORDERED: Loperamide HCl 2 MG CAP PO PRN (07:41)
[2019-07-30] MEDS ORDERED: Ondansetron PF 4 MG/2 ML Vial IVP PRN (07:41)
[2019-07-30] MEDS ORDERED: Bisacodyl 10 MG SUPP PR PRN (07:41)
[2019-07-30] MEDS ORDERED: Cepastat Lozenges 1 LOZ PO PRN (07:41)
[2019-07-30] MEDS ORDERED: Labetalol HCl 100 MG/20 ML VIAL SLOW IVP PRN (07:41)
[2019-07-30] MEDS ORDERED: Calcium Carbonate 500 MG ChewTAB PO PRN (07:41)
[2019-07-30] MEDS ORDERED: Sodium Chloride 0.65% Nasal 44 ML BOT EA NARE PRN (07:41)
[2019-07-30] MEDS ORDERED: Ondansetron ODT 4 MG TAB PO PRN (07:41)
[2019-07-30] MEDS ORDERED: Diabetic Tussin 200 MG/10 ML UDCUP PO PRN (07:41)
[2019-07-30] MEDS ORDERED: Artificial Tears 18 DROP/0.9 ML EA EYE PRN (07:41)
[2019-07-30] MEDS: Furosemide 40 MG/4 ML VIAL SLOW IVP SCH (08:20)
[2019-07-30] MEDS: Pantoprazole 40 MG VIAL IVP SCH (08:21)
[2019-07-30] MEDS: Metoprolol Tartrate 100 MG TAB PO SCH ×2 (08:23→20:40)
[2019-07-30] MEDS: Enoxaparin Sodium 40 MG/0.4 ML SYRINGE SC SCH (08:23)
[2019-07-30] MEDS: Acetaminophen 325 MG TAB PO PRN ×2 (08:23→20:41)
[2019-07-30] MEDS: Vancomycin 1.5 GRAM/300 ML BAG 1.5 GM in Premix Bag 1 BAG IVPB SCH (08:32)
--- NOTE | 2019-07-30 10:47 | PDOC.HOSPP ---
- Subjective Encounter Date: 07/30/19 Encounter Time: 11:50 non-verbal Subjective: Patient with some agitation overnight. Getting IV morphine quite regularly. Left had restrained as he pulls off his BiPAP mask and desats. Son has reportedly been feeding him hamburgers at the residential so suspect silent aspiration as the source of the pneumonia/resp failure - Objective Vital Signs & Weight: Vital Signs (12 hours) Temp Pulse Resp Pulse Ox 07/30/19 08:00 99.3 F 92 L 07/30/19 07:08 107 H 92 H 97 07/30/19 04:00 98.9 F 07/30/19 03:40 97 93 L 07/30/19 00:00 99.1 F Weight Admit Weight 207 lb 0.225 oz Weight 207 lb 10.807 oz Most Recent Monitor Data Heart Rate from ECG 75 NIBP 132/72 NIBP BP-Mean 92 Respiration from ECG 23 SpO2 88 I&O: 07/29/19 07/30/19 07/31/19 06:59 06:59 06:59 Intake Total 796 2288 100 Output Total 1630 1362 215 Balance -834 926 -115 Result Diagrams: 07/30/19 04:00 07/30/19 04:00 Hospitalist ROS - Review of Systems ROS unobtainable: due to mental status - Medication Medications: Active Medications Generic Name Dose Route Start Last Admin Trade Name Freq PRN Reason Stop Dose Admin Acetaminophen 650 mg 07/29/19 01:24 07/30/19 08:23 Tylenol PO 650 mg Q4H PRN Administration Fever/MILD Pain 1-3 Albuterol/Ipratropium 3 ml 07/29/19 10:30 07/30/19 07:08 Duoneb NEB 3 ml [id number] DARIANA Administration Diltiazem HCl 30 mg 07/30/19 11:00 07/30/19 10:04 Cardizem PER TUBE 30 mg Q6H DARIANA Administration Enoxaparin Sodium 40 mg 07/28/19 09:00 07/30/19 08:23 Lovenox SC 40 mg 0900 DARIANA Administration Cefepime HCl 1 gm/ Sodium 100 mls @ 200 mls/hr 07/28/19 09:00 07/30/19 08:09 Chloride IVPB 100 mls Q8H DARIANA Administration Diltiazem HCl 125 mg/ Sodium 125 mls @ 0 mls/hr 07/28/19 08:30 07/29/19 20:27 Chloride IVPB 125 mls INF DARIANA Administration Protocol Titrate Nitroglycerin/Dextrose 250 mls @ 0 mls/hr 07/28/19 09:00 07/28/19 07:30 Nitroglycerin 50 Mg/250 Ml Bot IVPB 250 mls INF DARIANA Administration Protocol Titrate Vancomycin HCl 1.5 gm/ Device 300 mls @ 200 mls/hr 07/29/19 09:00 07/30/19 08 :32 IVPB 300 mls 0900 DARIANA Administration Methylprednisolone Sodium Succinate 20 mg 07/29/19 12:00 07/30/19 05:11 Solu-Medrol IVP 20 mg Q6HR DARIANA Administration Metoprolol Tartrate 100 mg 07/28/19 21:00 07/30/19 08:23 Lopressor PO 100 mg BID DARIANA Administration Morphine Sulfate 4 mg 07/29/19 07:15 07/30/19 10:02 Morphine SLOW IVP 4 mg Q1H PRN Administration dyspnea Pantoprazole Sodium 40 mg 07/28/19 09:00 07/30/19 08:21 Protonix IVP 40 mg DAILY DARIANA Administration Sodium Chloride 10 ml 07/28/19 09:00 07/30/19 08:32 Flush - Normal Saline IVF 10 ml Q12HR DARIANA Administration - Exam General Appearance: awake alert General - other findings: mild resp distress on BIPAP ENT: moist mucosa Heart: RRR, no murmur, no gallops, no rubs Respiratory: CTAB, no wheezes, no rales, no ronchi Gastrointestinal: soft, non-tender, non-distended, normal bowel sounds Gastrointestinal - other findings: PEG in place Neurological - other findings: right sided paralysis from stroke, aphasia Psychiatric: not oriented Psychiatric - other findings: not following commands Hosp A/P (1) Acute respiratory failure with hypoxia Code(s): J96.01 - ACUTE RESPIRATORY FAILURE WITH HYPOXIA Status: Acute (2) Pneumonia Code(s): J18.9 - PNEUMONIA, UNSPECIFIED ORGANISM Status: Acute Qualifiers: Laterality: bilateral (3) Chronic atrial fibrillation Code(s): I48.2 - CHRONIC ATRIAL FIBRILLATION * DO NOT USE * Status: Chronic (4) HLD (hyperlipidemia) Code(s): E78.5 - HYPERLIPIDEMIA, UNSPECIFIED Status: Chronic (5) Hypertension Code(s): I10 - ESSENTIAL (PRIMARY) HYPERTENSION Status: Chronic Qualifiers: Hypertension type: essential hypertension Qualified Code(s): I10 - Essential (primary) hypertension - Plan Patient with severe respiratory distress. On BIPAP. On oxygen and abx. DNAR. Poor prognosis Will restart home Seroquel, Amantadine, other meds and see if helps with his agitation. Holding losartan due to renal failure.
[2019-07-30] MEDS: Diltiazem 125 MG in Sodium Chloride 0.9% 100 ML IVPB SCH (12:41)
--- NOTE | 2019-07-30 13:51 | PRG ---
DATE OF SERVICE: 07/30/2019 SERVICE: Pulmonary Medicine. INTERVAL HISTORY: The patient is doing poorly from respiratory standpoint. He has not been able to tolerate any BiPAP breaks. Oxygen requirements are actually up trending. He is on 60% FiO2. He remains on BiPAP. He cannot provide any additional elements of the history currently. He is flaccid on the right side. He is agitated on the left and really it is difficult to orient and calm. PHYSICAL EXAMINATION: VITAL SIGNS: Afebrile currently. T-max overnight was 100.2, pulse 73, blood pressure 141/78, respirations 18, saturation 94%, currently on 60% FiO2 delivered via BiPAP at 14/8. HEENT: Normocephalic and atraumatic. Sclerae white. Conjunctivae pink. Oral mucosa is moist without lesions. LUNGS: Decent air entry. Rhonchi are extensive. There is no prolonged expiratory phase or wheezing present. HEART: Normal rate. Regular. ABDOMEN: Soft, nontender, and nondistended. Bowel sounds are positive. MUSCULOSKELETAL: No cyanosis or clubbing. I do not see any pitting edema throughout. NEUROLOGIC: Right-sided hemiparesis is present. LABORATORY DATA: WBC 13.5, hemoglobin 10.3, platelets 144,000. Creatinine 2.47 and significantly uptrending with a BUN that has jumped to 64. Basic metabolic profile is otherwise unremarkable. Coag-negative staph is growing in one blood culture. Urine culture is negative to date. IMAGING: Echocardiogram demonstrates good ejection fraction with a moderately enlarged right ventricular cavity. There is left atrial dilation, but no significant valvular abnormalities are appreciated other than severe tricuspid regurgitation. Chest x-ray demonstrates extensive interstitial and alveolar opacification. Aspiration related disease is favorable. This is involving the superior segment of the right lower lobe, right upper lobe, and likely superior segment of the left lower lobe. Cardiomegaly is also appreciated. ASSESSMENT: 1. Acute hypoxic respiratory failure. 2. Severe multifocal healthcare associated pneumonia, secondary to overt aspiration. 3. Atrial fibrillation. DISCUSSION AND PLAN: The patient remains a very firm DNR. That being said, he is extraordinarily sick. He has no room for getting worse. If he cannot tolerate BiPAP breaks, ultimately, that modality of ventilation will fail, and he will start plugging up airways. I will initiate physiotherapy twice daily and increase as tolerated. We will continue frequent nebulized medications. I will do what I can to give him BiPAP breaks 3 times daily and put him on high-flow nasal cannula. Critical Care will continue to follow very closely. This patient is very likely to not survive this hospital stay unless he has a significant improvement in oxygen requirements and tolerates BiPAP breaks through time. CRITICAL CARE TIME: 30 minutes. Job ID: [id number] MTDD
[2019-07-30] MEDS: busPIRone HCl 5 MG TAB PO SCH ×2 (14:16→20:40)
[2019-07-30] MEDS: Amantadine HCl 10 mg/ml Oral Solution PO SCH (20:40)
[2019-07-30] MEDS: Melatonin 3 MG TAB PO SCH (20:40)
[2019-07-30] MEDS: Atorvastatin Calcium 40 MG TAB PO SCH (20:40)
[2019-07-30] MEDS: hydrALAZINE 25 MG TAB PO SCH (20:41)
[2019-07-30] MEDS: Gabapentin 300 MG CAP PO SCH (20:41)
[2019-07-30] MEDS: Lactinex Tablet PO SCH (20:41)
[2019-07-31] MEDS: Cefepime 1 GM in Sodium Chloride 0.9% 100 ML IVPB SCH ×3 (00:08→17:34)
[2019-07-31] MEDS: Morphine 4 MG/ML VIAL SLOW IVP PRN ×5 (02:45→21:15)
[2019-07-31] MEDS: Diltiazem 125 MG in Sodium Chloride 0.9% 100 ML IVPB SCH ×2 (03:11→14:37)
[2019-07-31 03:59] LABS: #Lymphocytes 0.4 thou/uL (1.20-3.40); #Monocytes 0.5 thou/uL (0.11-0.59); #Neutrophils 12.2 thou/uL (1.40-6.50); %Monocytes 3.4 % (0.0-10.0); %Neutrophils 93.6 % (42.0-75.0); Hemoglobin 10.4 g/dL (14.0-18.0); Mean Corpuscular HGB CONC 30.8 g/dL (32.0-36.0); Mean Corpuscular Hemoglobin 27.4 pg (27.0-31.0); Mean Corpuscular Volume 88.9 fL (78.0-98.0); Mean Platelet Volume 9.2 fL (7.4-10.4); Platelet Count 164 thou/uL (130-400); RBC Distribution Width 13.1 % (11.5-14.5); White Blood Cell (WBC) Count 13.1 thou/uL (4.8-10.8)
[2019-07-31 04:16] LABS: Anion Gap 17 mmol/L (10-20); BUN (Urea Nitrogen) 94 mg/dL (8.4-25.7); Calc. Creatinine Clearance 32 mL/min (70-130); Calcium 8.9 mg/dL (7.8-10.44); Carbon Dioxide 24 mmol/L (23-31); Chloride 110 mmol/L (98-107); Estimated GFR-MDRD 26; Glucose 144 mg/dL (80-115); Potassium 4.2 mmol/L (3.5-5.1); Sodium 147 mmol/L (136-145)
[2019-07-31] MEDS: methylPREDNISolone Sod Succ 40 MG VIAL IVP SCH ×4 (05:06→23:13)
[2019-07-31] MEDS: Acetaminophen 325 MG TAB PO PRN ×2 (05:12→21:18)
[2019-07-31 08:58] LABS: Vancomycin, Trough 21.1 ug/mL
[2019-07-31] MEDS: Enoxaparin Sodium 40 MG/0.4 ML SYRINGE SC SCH (09:20)
[2019-07-31] MEDS: Pantoprazole 40 MG VIAL IVP SCH (09:20)
[2019-07-31] MEDS: busPIRone HCl 5 MG TAB PO SCH ×3 (09:20→21:17)
[2019-07-31] MEDS: Metoprolol Tartrate 100 MG TAB PO SCH ×2 (09:21→21:18)
[2019-07-31] MEDS: Lactinex Tablet PO SCH ×2 (09:21→21:17)
[2019-07-31] MEDS: hydrALAZINE 25 MG TAB PO SCH ×2 (09:21→21:17)
[2019-07-31] MEDS: Amantadine HCl 10 mg/ml Oral Solution PO SCH ×2 (09:21→21:27)
[2019-07-31] MEDS: Gabapentin 300 MG CAP PO SCH ×2 (09:21→21:18)
[2019-07-31] MEDS ORDERED: Vancomycin HCl 1.25 GM in Sodium Chloride 0.9% 250 ML 250 ML IVPB SCH (10:00)
[2019-07-31] MEDS: Vancomycin 1.5 GRAM/300 ML BAG 1.5 GM in Premix Bag 1 BAG IVPB SCH (10:03)
[2019-07-31] MEDS ORDERED: Sodium Chloride 0.45% 1,000 ML IV SCH (15:00)
--- NOTE | 2019-07-31 15:16 | PRG ---
DATE OF SERVICE: 07/31/2019 SERVICE: Pulmonary Medicine. INTERVAL HISTORY: Initially, the patient had a hard time transitioning onto the high-flow nasal cannula. That being said, once he settled down and stopped removing the oxygen, his breathing improved a little bit. He cannot register any additional complaints. There were no overnight events. He has been running a low-grade temperature. PHYSICAL EXAMINATION: VITAL SIGNS: Afebrile. Pulse 80, blood pressure 119/69, respirations 25, saturation 100% on 90% FiO2 via high-flow nasal cannula. HEENT: Normocephalic and atraumatic. Sclerae are white. Conjunctivae are pink. Oral mucosa is moist without lesions. LUNGS: Decent air entry. Crackles and rhonchi are both present. HEART: Normal rate. Regular. ABDOMEN: Soft, nontender, and nondistended. Bowel sounds are positive. MUSCULOSKELETAL: No cyanosis or clubbing. No pitting in the bilateral lower extremities. NEUROLOGIC: Dense right-sided hemiparesis, with likely neglect of the right. LABORATORY DATA: WBC 13.1, hemoglobin 10.4, platelets 164,000. Creatinine 2.91 and gently up trending, BUN 94. Basic metabolic profile is otherwise unremarkable. ASSESSMENT: 1. Acute hypoxic respiratory failure. 2. Severe multifocal pneumonia secondary to overt aspiration. 3. Atrial fibrillation. DISCUSSION AND PLAN: I believe the patient is on the dry side. We are going to start introducing some maintenance fluids. We will continue our physiotherapy, and high-flow nasal cannula as long as the patient can tolerate it. Ultimately, I do not think we are going to get a lasting benefit out of the treatment of this pneumonia. Even if we can recover this patient, he will need to be strictly n.p.o. for life. He will no longer be allowed to eat any foods that the family brings and will need to rely on his PEG tube feeding 100% of the time. These severe aspiration events will not stop through time, but by relying solely on his PEG tube, hopefully, we can decrease the severity of these events and frequency. He remains a firm DNI/DNR and has absolutely no margin for getting worse. Pulmonary/Critical Care will follow. Job ID: [id number]
[2019-07-31] MEDS ORDERED: D5 1/4 NS 1,000 ML IV SCH (16:00)
[2019-07-31] MEDS: Dextrose 5% in Water 500 ML IV SCH (16:16)
--- NOTE | 2019-07-31 16:17 | PDOC.HOSPP ---
- Subjective Encounter Date: 07/31/19 Encounter Time: 09:30 Subjective: awake, not oriented well, on high flow O2 moves his left side has aphasia and dysphagia - Objective Vital Signs & Weight: Vital Signs (12 hours) Temp Pulse Resp BP Pulse Ox 07/31/19 16:00 99.0 F 07/31/19 14:22 80 25 H 100 07/31/19 12:30 75 27 H 98 07/31/19 12:00 99.3 F 07/31/19 10:08 81 13 98 07/31/19 09:21 92 153/83 H 07/31/19 08:00 99.0 F 91 L 07/31/19 06:16 82 23 H 91 L Weight Admit Weight 207 lb 0.225 oz Weight 207 lb 3.752 oz Most Recent Monitor Data Heart Rate from ECG 92 NIBP 141/65 NIBP BP-Mean 90 Respiration from ECG 21 SpO2 80 I&O: 07/30/19 07/31/19 08/01/19 06:59 06:59 06:59 Intake Total 2288 3104 450 Output Total 1362 1290 870 Balance 926 1814 -420 Result Diagrams: 07/31/19 03:32 07/31/19 03:32 Hospitalist ROS - Medication Medications: Active Medications Generic Name Dose Route Start Last Admin Trade Name Freq PRN Reason Stop Dose Admin Acetaminophen 650 mg 07/29/19 01:24 07/31/19 05:12 Tylenol PO 650 mg Q4H PRN Administration Fever/MILD Pain 1-3 Acidophilus 1 tab 07/30/19 21:00 07/31/19 09:21 Floranex PO 1 tab BID DARIANA Administration Albuterol/Ipratropium 3 ml 07/29/19 10:30 07/31/19 14:22 Duoneb NEB 3 ml [id number] DARIANA Administration Amantadine HCl 100 mg 07/30/19 21:00 07/31/19 09:21 Symmetrel PO 100 mg BID DARIANA Administration Atorvastatin Calcium 40 mg 07/30/19 21:00 07/30/19 20:40 Lipitor PO 40 mg HS DARIANA Administration Buspirone HCl 5 mg 07/30/19 15:00 07/31/19 14:37 Buspar PO 5 mg TID DARIANA Administration Diltiazem HCl 30 mg 07/30/19 11:00 07/31/19 11:34 Cardizem PER TUBE 30 mg Q6H DARIANA Administration Gabapentin 300 mg 07/30/19 21:00 07/31/19 09:21 Neurontin PO 300 mg BID DARIANA Administration Hydralazine HCl 50 mg 07/30/19 21:00 07/31/19 09:21 Apresoline PO 50 mg BID DARIANA Administration Cefepime HCl 1 gm/ Sodium 100 mls @ 200 mls/hr 07/28/19 09:00 07/31/19 09:23 Chloride IVPB 100 mls Q8H DARIANA Administration Diltiazem HCl 125 mg/ Sodium 125 mls @ 5 mls/hr 07/31/19 11:15 07/31/19 14:37 Chloride IVPB 125 mls INF DARIANA Administration Protocol 5 MG/HR Dextrose/Sodium Chloride 1,000 mls @ 50 mls/hr 07/31/19 16:00 07/31/19 16:08 D5 1/4 Ns IV 1,000 mls .Q20H DARIANA Administration Melatonin 6 mg 07/30/19 21:00 07/30/19 20:40 Melatonin PO 6 mg HS DARIANA Administration Methylprednisolone Sodium Succinate 20 mg 07/29/19 12:00 07/31/19 11:35 Solu-Medrol IVP 20 mg Q6HR DARIANA Administration Metoprolol Tartrate 100 mg 07/28/19 21:00 07/31/19 09:21 Lopressor PO 100 mg BID DARIANA Administration Morphine Sulfate 4 mg 07/29/19 07:15 07/31/19 14:36 Morphine SLOW IVP 4 mg Q1H PRN Administration dyspnea Pantoprazole Sodium 40 mg 07/28/19 09:00 07/31/19 09:20 Protonix IVP 40 mg DAILY DARIANA Administration Sertraline HCl 25 mg 07/30/19 21:00 07/30/19 20:41 Zoloft PO 25 mg HS DARIANA Administration Sodium Chloride 10 ml 07/28/19 09:00 07/31/19 09:21 Flush - Normal Saline IVF 10 ml Q12HR DARIANA Administration - Exam General Appearance: awake alert Eye: PERRL, anicteric sclera ENT: no oropharyngeal lesions, moist mucosa Neck: supple, no JVD Heart: RRR, no murmur Respiratory: no wheezes, no rales, rhonchi Gastrointestinal: soft, non-tender, non-distended, normal bowel sounds Gastrointestinal - other findings: peg+ Extremities: no cyanosis, no edema Neurological: hemiplegia, speech deficit Hosp A/P (1) Acute respiratory failure with hypoxia Code(s): J96.01 - ACUTE RESPIRATORY FAILURE WITH HYPOXIA Status: Acute (2) KARL (acute kidney injury) Code(s): N17.9 - ACUTE KIDNEY FAILURE, UNSPECIFIED Status: Acute (3) Pneumonia Code(s): J18.9 - PNEUMONIA, UNSPECIFIED ORGANISM Status: Acute Qualifiers: Pneumonia type: aspiration pneumonia Laterality: bilateral (4) HLD (hyperlipidemia) Code(s): E78.5 - HYPERLIPIDEMIA, UNSPECIFIED Status: Chronic (5) Anemia Code(s): D64.9 - ANEMIA, UNSPECIFIED Status: Chronic Qualifiers: Other causes of anemia: chronic disease, other (6) Aphasia Code(s): R47.01 - APHASIA Status: Chronic (7) Hypertension Code(s): I10 - ESSENTIAL (PRIMARY) HYPERTENSION Status: Chronic Qualifiers: Hypertension type: essential hypertension Qualified Code(s): I10 - Essential (primary) hypertension (8) Atrial fibrillation with RVR Code(s): I48.91 - UNSPECIFIED ATRIAL FIBRILLATION Status: Acute - Plan is tolerating high flow oxygen peg feeding on cardizem drip and oral cardizem along with lopressor continue hydralazine, amantadine, buspar, lipitor, neurontin. on cefepime, vanc and steroids prognosis guarded with multiple chr med condition including previous hemiplegia , dysphagia and bed bound echo showed ef of 50%, severe TR and enlarged right sided chambers bun/cr of 94/2.9 pt is DNAR
[2019-07-31] MEDS: metroNIDAZOLE 500 MG in Premix Bag 1 BAG IVPB SCH ×2 (17:31→23:13)
[2019-07-31] MEDS: Melatonin 3 MG TAB PO SCH (21:17)
[2019-07-31] MEDS: Atorvastatin Calcium 40 MG TAB PO SCH (21:17)
[2019-07-31] MEDS: Heparin 5,000 UNITS/ML VIAL SC SCH (21:18)
[2019-08-01] MEDS: Morphine 4 MG/ML VIAL SLOW IVP PRN ×3 (00:14→04:16)
[2019-08-01] MEDS: Cefepime 1 GM in Sodium Chloride 0.9% 100 ML IVPB SCH ×3 (00:36→20:22)
[2019-08-01 04:16] LABS: #Lymphocytes 0.3 thou/uL (1.20-3.40); #Monocytes 0.2 thou/uL (0.11-0.59); #Neutrophils 9.4 thou/uL (1.40-6.50); %Eosinophils 0.1 % (0.0-10.0); %Lymphocytes 2.6 % (21.0-51.0); %Monocytes 2.4 % (0.0-10.0); Hemoglobin 10.8 g/dL (14.0-18.0); Mean Corpuscular HGB CONC 30.5 g/dL (32.0-36.0); Mean Corpuscular Hemoglobin 27.1 pg (27.0-31.0); Mean Corpuscular Volume 88.8 fL (78.0-98.0); Mean Platelet Volume 9.2 fL (7.4-10.4); Platelet Count 168 thou/uL (130-400); RBC Distribution Width 12.9 % (11.5-14.5); Red Blood Cell (RBC) Count 3.97 mill/uL (4.70-6.10); White Blood Cell (WBC) Count 9.9 thou/uL (4.8-10.8)
[2019-08-01 04:35] LABS: Phosphorus 3.5 mg/dL (2.3-4.7)
[2019-08-01 04:37] LABS: Anion Gap 17 mmol/L (10-20); BUN (Urea Nitrogen) 105 mg/dL (8.4-25.7); Calc. Creatinine Clearance 43 mL/min (70-130); Calcium 8.9 mg/dL (7.8-10.44); Carbon Dioxide 21 mmol/L (23-31); Chloride 115 mmol/L (98-107); Estimated GFR-MDRD 37; Glucose 190 mg/dL (80-115); Magnesium 2.9 mg/dL (1.6-2.6); Potassium 3.9 mmol/L (3.5-5.1); Sodium 149 mmol/L (136-145)
[2019-08-01] MEDS: metroNIDAZOLE 500 MG in Premix Bag 1 BAG IVPB SCH ×4 (05:05→23:55)
[2019-08-01] MEDS: methylPREDNISolone Sod Succ 40 MG VIAL IVP SCH ×4 (05:06→23:55)
[2019-08-01] MEDS ORDERED: Dextrose 5% in Water 1,000 ML IV SCH (07:45)
--- NOTE | 2019-08-01 07:47 | RAD ---
EXAM: CHEST ONE VIEW HISTORY: Follow-up pneumonia COMPARISON: 07/29/2019 FINDINGS: Cardiac silhouette is magnified by projection but does appear enlarged. Bilateral interstitial and al veolar opacities are again seen within the lungs. There does appear to be mild improvement in more dense consolidation seen in the left midlung zone noted on the prior exam. No pleural effusion is see n. Degenerative changes are again seen in the spine. Vascular calcifications are seen in the thoracic aorta. IMPRESSION: Extensive bilateral interstitial and alveolar opacities which again may be related to bilateral pneum onia and possibly atypical pneumonia. Pulmonary edema is a possibility. There appears to be minimal improvement in aeration in the more lateral aspect of the area of more dense consolidation seen on th e left compared to prior study. Chest is otherwise stable.
--- NOTE | 2019-08-01 08:08 | PRG ---
DATE OF SERVICE: 08/01/2019 SUBJECTIVE: The patient remains in the ICU, receiving high-flow oxygen. He does answer some questions for me this morning and does not appear to be in any distress. OBJECTIVE: VITAL SIGNS: Temperature is 98.9, pulse 108, blood pressure 165/96, O2 saturation 93%. 24-hour intake 3486, output 2395. HEENT: Unremarkable except for high-flow oxygen he is wearing. NECK: No adenopathy or JVD. CHEST: Clear to auscultation. CARDIAC: S1, S2, slightly tachycardic. ABDOMEN: Soft. Nontender. EXTREMITIES: No clubbing, cyanosis, or edema. LABORATORY DATA: White blood cell count 9.9, hematocrit 35.3, platelet count 168. Sodium 149, potassium 3.8, chloride 115, CO2 of 21, BUN 105, creatinine 2.1, glucose 190. ASSESSMENT: 1. Acute hypoxic respiratory failure, requiring mechanical ventilation. X-ray continuing to show bilateral infiltrative changes. 2. Pneumonia. 3. Possible congestive heart failure. 4. Chronic atrial fibrillation. PLAN: The patient does not appear to be improving very fast. He is currently on Flagyl and cefepime for antibiotic coverage. He has developed hypernatremia from volume contraction. Based on that, I will go ahead and put him back on D5W rather than D5 quarter-normal saline. We will continue to monitor his electrolytes. I will add some Ambien at night to see if that will assist him in sleeping. Job ID: [id number]
[2019-08-01] MEDS: Dextrose 5% in Water 500 ML IV SCH ×4 (08:21→22:54)
[2019-08-01] MEDS: Heparin 5,000 UNITS/ML VIAL SC SCH ×2 (08:33→20:17)
[2019-08-01] MEDS: Pantoprazole 40 MG VIAL IVP SCH (08:33)
[2019-08-01] MEDS: Amantadine HCl 10 mg/ml Oral Solution PO SCH ×2 (08:33→20:25)
[2019-08-01] MEDS: Gabapentin 300 MG CAP PO SCH ×2 (08:34→20:17)
[2019-08-01] MEDS: Lactinex Tablet PO SCH ×2 (08:34→20:17)
[2019-08-01] MEDS: Metoprolol Tartrate 100 MG TAB PO SCH ×2 (08:34→20:16)
[2019-08-01] MEDS: hydrALAZINE 25 MG TAB PO SCH ×2 (08:34→20:16)
[2019-08-01] MEDS ORDERED: Enoxaparin Sodium 30 MG/0.3 ML SYRINGE SC SCH (09:00)
[2019-08-01 09:36] VITALS: BMI 29.7
[2019-08-01] MEDS: busPIRone HCl 5 MG TAB PO SCH ×3 (11:28→20:15)
[2019-08-01] MEDS ORDERED: Acetaminophen 325 MG/10.15 ML UDCUP PO PRN (18:25)
[2019-08-01] MEDS ORDERED: Pancrelipase DR 12000 1 CAP FS PRN (18:30)
[2019-08-01] MEDS ORDERED: Milk Of Magnesia 30 ML UDCUP PO PRN (18:30)
[2019-08-01] MEDS ORDERED: Sodium Bicarbonate Tab 325 MG TAB PER TUBE PRN (18:30)
[2019-08-01] MEDS: Melatonin 3 MG TAB PO SCH (20:15)
[2019-08-01] MEDS: Zolpidem Tartrate 5 MG TAB PER TUBE SCH (20:16)
[2019-08-01] MEDS: Atorvastatin Calcium 40 MG TAB PO SCH (20:17)
[2019-08-01] MEDS: Diltiazem 125 MG in Sodium Chloride 0.9% 100 ML IVPB SCH (21:05)
[2019-08-01] MEDS: Acetaminophen 650 MG/20.3 ML UDCUP PO PRN (21:05)
[2019-08-02] MEDS: Acetaminophen 650 MG/20.3 ML UDCUP PO PRN ×2 (03:07→23:59)
[2019-08-02] MEDS: Dextrose 5% in Water 500 ML IV SCH ×3 (03:09→17:49)
[2019-08-02 04:16] LABS: Phosphorus 1.7 mg/dL (2.3-4.7)
[2019-08-02 04:17] LABS: Anion Gap 15 mmol/L (10-20); BUN (Urea Nitrogen) 82 mg/dL (8.4-25.7); Calc. Creatinine Clearance 55 mL/min (70-130); Calcium 8.8 mg/dL (7.8-10.44); Carbon Dioxide 25 mmol/L (23-31); Chloride 117 mmol/L (98-107); Estimated GFR-MDRD 49; Glucose 193 mg/dL (80-115); Magnesium 2.8 mg/dL (1.6-2.6); Potassium 3.6 mmol/L (3.5-5.1); Sodium 153 mmol/L (136-145)
[2019-08-02] MEDS ORDERED: Potassium Phosphate 9 MMOL in Sodium Chloride 0.9% 100 ML IVPB SCH (05:00)
[2019-08-02] MEDS: metroNIDAZOLE 500 MG in Premix Bag 1 BAG IVPB SCH ×4 (05:06→23:48)
[2019-08-02] MEDS: methylPREDNISolone Sod Succ 40 MG VIAL IVP SCH ×4 (05:07→23:49)
[2019-08-02 05:11] LABS: Band 9 % (5-11); Hemoglobin 11.3 g/dL (14.0-18.0); MDiff Complete? YES; Mean Corpuscular HGB CONC 31.7 g/dL (32.0-36.0); Mean Corpuscular Hemoglobin 27.8 pg (27.0-31.0); Mean Corpuscular Volume 87.7 fL (78.0-98.0); Mean Platelet Volume 8.8 fL (7.4-10.4); Monocytes 5 % (0-10); Neutrophil 86 % (42-75); Platelet Count 180 thou/uL (130-400); RBC Distribution Width 12.8 % (11.5-14.5); Red Blood Cell (RBC) Count 4.07 mill/uL (4.70-6.10); White Blood Cell (WBC) Count 13.2 thou/uL (4.8-10.8)
[2019-08-02] MEDS: Morphine 4 MG/ML VIAL SLOW IVP PRN ×6 (07:38→23:49)
[2019-08-02] MEDS: Lorazepam 2 MG/ML VIAL SLOW IVP PRN ×4 (07:56→21:51)
--- NOTE | 2019-08-02 08:05 | PRG ---
DATE OF SERVICE: 08/02/2019 SUBJECTIVE: This patient is back on BiPAP. He is struggling to breathe. He did get some Ambien last night, but only slept for about an hour with that. OBJECTIVE: VITAL SIGNS: His temperature is 98.8, pulse 122, blood pressure 159/108, and O2 saturation 92%. GENERAL: He is extremely dyspneic. He is shaking. HEENT: Unremarkable. NECK: No adenopathy or JVD. LUNGS: Coarse rhonchi. CARDIAC: S1 and S2. Irregularly irregular and tachycardic. ABDOMEN: Soft. EXTREMITIES: No edema. LABORATORY DATA: Sodium 153, potassium 3.6, chloride 117, CO2 of 25, BUN 82, creatinine 1.7, glucose 193, and phosphorus 1.7. White blood cell count 13.2, hematocrit 35.7, and platelet count 180. ASSESSMENT: 1. Acute on chronic respiratory failure, requiring mechanical ventilation. Chest x-ray continues to show bilateral infiltrative changes suggestive of heart failure or pneumonia. 2. Pneumonia. 3. Diastolic heart dysfunction. 4. Chronic atrial fibrillation. PLAN: The patient appears to be getting worse despite aggressive treatment. His sodium has gone up even after getting the free water yesterday. I think we are in a situation, where we need to focus more on palliating his symptoms. I have told the nurse to be more liberal in morphine administration. I have also added some Ativan for comfort. I do not think he can survive very long like this. Job ID: [id number]
[2019-08-02] MEDS ORDERED: Diltiazem 125 MG in Sodium Chloride 0.9% 100 ML IVPB SCH (08:45)
[2019-08-02] MEDS: Amantadine HCl 10 mg/ml Oral Solution PO SCH ×2 (08:52→19:56)
[2019-08-02] MEDS: Cefepime 1 GM in Sodium Chloride 0.9% 100 ML IVPB SCH ×2 (08:52→19:56)
[2019-08-02] MEDS: hydrALAZINE 25 MG TAB PO SCH ×2 (08:53→19:55)
[2019-08-02] MEDS: Heparin 5,000 UNITS/ML VIAL SC SCH ×2 (08:53→19:56)
[2019-08-02] MEDS: Lactinex Tablet PO SCH ×2 (08:53→19:56)
[2019-08-02] MEDS: Gabapentin 300 MG CAP PO SCH ×2 (08:53→19:55)
[2019-08-02] MEDS: busPIRone HCl 5 MG TAB PO SCH ×3 (08:53→19:55)
[2019-08-02] MEDS: Metoprolol Tartrate 100 MG TAB PO SCH ×2 (08:53→19:55)
[2019-08-02] MEDS: Polyethylene Glycol 3350 17 GM Packet PO SCH (08:54)
[2019-08-02] MEDS: Pantoprazole 40 MG VIAL IVP SCH (08:54)
--- NOTE | 2019-08-02 14:11 | PQF ---
CLINICAL DOCUMENTATION IMPROVEMENT CLARIFICATION FORM: ICD-10 Updated PLEASE DO AN ADDENDUM TO THE PROGRESS NOTE WITH ANY DOCUMENTATION UPDATES OR ADDITIONS AND CARRY THROUGH TO DC SUMMARY. THANK YOU. DATE: 08/02/19 ATTN: DR. MURRAY Please exercise your independent, professional judgment in responding to the clarification form. Clinical indicators are provided on the bottom of this form for your review Please check appropriate box(s): HEART FAILURE: A. ACUITY [ ] Acute [ ] Acute on Chronic [ ] Chronic B. TYPE [ ] Systolic / HFrEF [ ] Diastolic / HFpEF [ ] Combined Systolic / Diastolic [ ] Hypertensive Heart and Kidney disease [ ] Hypertensive Heart Disease [ ] Hypertensive Kidney Disease [ x ] Other diagnosis ____Please send this query to . Thank you [ ] Unable to determine In addition, please specify: Present on Admission (POA): [ ] Yes [ ] No [ ] Unable to determine For continuity of documentation, please document condition throughout progress notes and discharge summary. Thank You. CLINICAL INDICATORS - SIGNS / SYMPTOMS / LABS / RESULTS AND LOCATION IN EMR PROGRESS NOTE (PULMONARY) 08/01: "POSSIBLE CONGESTIVE HEART FAILURE" BNP 07/28: 407.1 RISKS: H/O HTN (PROGRESS NOTE 2) H/O AFIB (PROGRESS NOTE 07/30) TREATMENT: IV LASIX (ER) CRITICAL CARE MONITORING SUPPLEMENTAL OXYGEN ECHOCARDIOGRAM (07/29) (This form is maintained as a part of the permanent medical record) [employer] Winform Viewer 2015 [employer]. All Rights Reserved [email or web address] Office: [phone] [facility]
[2019-08-02] MEDS: Atorvastatin Calcium 40 MG TAB PO SCH (19:55)
[2019-08-02] MEDS: Melatonin 3 MG TAB PO SCH (19:55)
[2019-08-02] MEDS: Zolpidem Tartrate 5 MG TAB PER TUBE SCH (19:56)
[2019-08-03] MEDS: Dextrose 5% in Water 500 ML IV SCH ×2 (01:57→05:11)
[2019-08-03] MEDS: Morphine 4 MG/ML VIAL SLOW IVP PRN ×7 (03:24→13:50)
[2019-08-03] MEDS: metroNIDAZOLE 500 MG in Premix Bag 1 BAG IVPB SCH ×2 (04:58→11:44)
[2019-08-03] MEDS: methylPREDNISolone Sod Succ 40 MG VIAL IVP SCH ×2 (04:59→11:44)
[2019-08-03] MEDS: Lorazepam 2 MG/ML VIAL SLOW IVP PRN ×3 (04:59→11:21)
[2019-08-03 05:50] LABS: Anion Gap 11 mmol/L (10-20); BUN (Urea Nitrogen) 74 mg/dL (8.4-25.7); Calc. Creatinine Clearance 55 mL/min (70-130); Calcium 8.6 mg/dL (7.8-10.44); Carbon Dioxide 26 mmol/L (23-31); Chloride 120 mmol/L (98-107); Estimated GFR-MDRD 48; Glucose 194 mg/dL (80-115); Magnesium 2.8 mg/dL (1.6-2.6); Sodium 153 mmol/L (136-145)
[2019-08-03 05:54] LABS: Phosphorus 2.1 mg/dL (2.3-4.7)
[2019-08-03 06:04] LABS: Band 14 % (5-11); Hemoglobin 9.9 g/dL (14.0-18.0); Lymphocytes 3 % (21-51); MDiff Complete? YES; Mean Corpuscular HGB CONC 30.2 g/dL (32.0-36.0); Mean Corpuscular Hemoglobin 26.9 pg (27.0-31.0); Mean Corpuscular Volume 89.1 fL (78.0-98.0); Mean Platelet Volume 9.3 fL (7.4-10.4); Monocytes 2 % (0-10); Neutrophil 81 % (42-75); Platelet Count 160 thou/uL (130-400); RBC Distribution Width 13.1 % (11.5-14.5); Red Blood Cell (RBC) Count 3.67 mill/uL (4.70-6.10); White Blood Cell (WBC) Count 10.7 thou/uL (4.8-10.8)
[2019-08-03] MEDS: Polyethylene Glycol 3350 17 GM Packet PO SCH (08:38)
[2019-08-03] MEDS: Gabapentin 300 MG CAP PO SCH (08:38)
[2019-08-03] MEDS: Cefepime 1 GM in Sodium Chloride 0.9% 100 ML IVPB SCH (08:38)
[2019-08-03] MEDS: Lactinex Tablet PO SCH (08:39)
[2019-08-03] MEDS: hydrALAZINE 25 MG TAB PO SCH (08:39)
[2019-08-03] MEDS: Metoprolol Tartrate 100 MG TAB PO SCH (08:39)
[2019-08-03] MEDS: Heparin 5,000 UNITS/ML VIAL SC SCH (08:39)
[2019-08-03 08:42] VITALS: BP 149/105
[2019-08-03] MEDS ORDERED: Pantoprazole 40 MG GRANULES PACKET PER TUBE SCH (09:00)
--- NOTE | 2019-08-03 09:00 | PRG ---
DATE OF SERVICE: 08/03/2019 SUBJECTIVE: This patient continues to do quite poorly despite noninvasive ventilation. OBJECTIVE: VITAL SIGNS: On exam, temperature is 98.2, pulse in the 120s to 130s, blood pressure 149/105, and O2 saturation 94% on 75% oxygen through BiPAP. GENERAL: He appears to be tachypneic. HEENT: Otherwise, unremarkable. NECK: No JVD. LUNGS: Coarse rhonchi. CARDIAC: S1 and S2. Irregularly irregular. ABDOMEN: Soft and nontender. EXTREMITIES: No edema. LABORATORY DATA: White blood cell count 10.7, hematocrit 32.7, and platelet count 160. Sodium 153, potassium 4, chloride 120, CO2 of 26, BUN 74, creatinine 1.7, and glucose 194. ASSESSMENT: 1. Acute on chronic respiratory failure, requiring mechanical ventilation. 2. Pneumonia. 3. Diastolic heart dysfunction. 4. Atrial fibrillation. PLAN: The patient continues to have poor response to current therapy. I do not see any reasonable hope of him surviving this hospitalization. I spoke to his son at bedside. They are awaiting for one more family member to come, then I think they will withdraw care and go with palliative measures only. Job ID: [id number]
[2019-08-03] MEDS: Amantadine HCl 10 mg/ml Oral Solution PO SCH (09:02)
[2019-08-03] MEDS: busPIRone HCl 5 MG TAB PO SCH (09:18)
[2019-08-03] MEDS ORDERED: Lorazepam 2 MG/ML VIAL SLOW IVP PRN (11:37)
[2019-08-03 11:43] VITALS: TEMP 99.8
--- NOTE | 2019-08-04 11:12 | DIS ---
DATE OF ADMISSION: 07/28/2019 DATE OF DISCHARGE: 08/03/2019 DATE OF : August 03[birth year] 2019 ADMITTING DIAGNOSES: 1. Acute hypoxic respiratory failure secondary to possibly congestive heart failure or pneumonia or both. 2. Status post cerebrovascular accident. 3. Chronic atrial fibrillation with rapid ventricular response. 4. Hypertension and hypertensive emergency. 5. Hyperlipidemia. 6. Chronic anemia. FINAL DIAGNOSES: 1. Acute respiratory failure secondary to diastolic dysfunction as well as pneumonia, did not respond to the treatment well. 2. Atrial fibrillation with rapid ventricular response rate. 3. Status post cerebrovascular accident. 4. Hypertension, uncontrolled, malignant, improved. 5. Hyperlipidemia. BRIEF SUMMARY OF HOSPITAL COURSE: Mr. Santoyo is a 68-year-old male admitted because of respiratory distress and hypoxia. The patient was found to be in acute respiratory failure. The patient was intubated, was unresponsive. He was found to have possible diastolic heart failure as well as pneumonia. He was started on diuretics, Lasix as well as antibiotics, admitted to CCU. The patient was seen by Dr. Rosas of Pulmonology. He felt the patient had acute hypoxic respiratory failure, possibly secondary to either CHF or pneumonia and suggested to continue with antibiotics and Cardizem infusion for ventricular rate control. The patient is DNR. In the next 3 days, the patient continued to remain in respiratory failure, not responding well to treatment. Patient was also seen by Cardiology, Dr. Lake, who felt the patient had atrial fibrillation with rapid ventricular rate and pneumonia and respiratory failure with CHF as well. He suggested echocardiogram and diuresis. Echocardiogram was done, which showed normal LV function with ejection fraction of 55%, showed severe tricuspid regurgitation and enlarged right atrium. So, the patient was continued on his medications and monitoring with ventilator support, but the patient's response was very poor, so his condition and his prognosis was discussed with the family and family made a decision to make him comfort care rather than continuing the care, so all the treatment was stopped and the patient on the July at 1630. Family was at bedside. Job ID: [id number]
--- NOTE | 2019-08-05 10:05 | PQF ---
CLINICAL DOCUMENTATION IMPROVEMENT CLARIFICATION FORM: ICD-10 Updated PLEASE DO AN ADDENDUM TO THE PROGRESS NOTE WITH ANY DOCUMENTATION UPDATES OR ADDITIONS AND CARRY THROUGH TO DC SUMMARY. THANK YOU. DATE: 08/05/19 ATTN: DR. HARLEY Please exercise your independent, professional judgment in responding to the clarification form. Clinical indicators are provided on the bottom of this form for your review Please check appropriate box(s): HEART FAILURE: A. ACUITY [y ] Acute [ ] Acute on Chronic [ ] Chronic B. TYPE [ ] Systolic / HFrEF [ y] Diastolic / HFpEF [ ] Combined Systolic / Diastolic [ ] Hypertensive Heart and Kidney disease [ y ] Hypertensive Heart Disease [ ] Hypertensive Kidney Disease [ ] Other diagnosis [ ] Unable to determine In addition, please specify: Present on Admission (POA): [ y] Yes [ ] No [ ] Unable to determine For continuity of documentation, please document condition throughout progress notes and discharge summary. Thank You. CLINICAL INDICATORS - SIGNS / SYMPTOMS / LABS / RESULTS AND LOCATION IN EMR PROGRESS NOTE (PULMONARY) 08/01: "POSSIBLE CONGESTIVE HEART FAILURE" BNP 07/28: 407.1 RISKS: H/O HTN (PROGRESS NOTE 2) H/O AFIB (PROGRESS NOTE 2) TREATMENT: IV LASIX (ER) CRITICAL CARE MONITORING SUPPLEMENTAL OXYGEN ECHOCARDIOGRAM (07/29) (This form is maintained as a part of the permanent medical record) [employer] Mark[employer] Crystal Reports Winform Viewer 2015 [employer]. All Rights Reserved ARTHUR [email or web address] Office: [phone] [facility]
== END 2019-08-03 16:30 | disposition expired | DRG 177 ==
LOC: ERS 05:25 → CCU 06:52
PROVIDERS: ADMIT Internal Medicine; ATTEND Internal Medicine
PROC: 5A09457 Assistance with Respiratory Ventilation, 24-96 Consecutive Hours, Continuous Positive Airway Pressure (ICD-10-PCS; principal; 2019-08-02)
DX: J69.0 Pneumonitis due to inhalation of food and vomit (principal); I21.A1 Myocardial infarction type 2; I50.31 Acute diastolic (congestive) heart failure; J96.21 Acute and chronic respiratory failure with hypoxia; I48.20 Chronic atrial fibrillation, unspecified; I16.1 Hypertensive emergency; E87.0 Hyperosmolality and hypernatremia; I69.351 Hemiplegia and hemiparesis following cerebral infarction affecting right dominant side; N17.9 Acute kidney failure, unspecified; I11.0 Hypertensive heart disease with heart failure; E11.40 Type 2 diabetes mellitus with diabetic neuropathy, unspecified; Z51.5 Encounter for palliative care; F32.9 Major depressive disorder, single episode, unspecified; F41.9 Anxiety disorder, unspecified; E78.00 Pure hypercholesterolemia, unspecified; D64.9 Anemia, unspecified; Z66 Do not resuscitate; E78.5 Hyperlipidemia, unspecified; Z90.49 Acquired absence of other specified parts of digestive tract; Z79.84 Long term (current) use of oral hypoglycemic drugs; Z93.3 Colostomy status; Z85.068 Personal history of other malignant neoplasm of small intestine; I69.320 Aphasia following cerebral infarction; Z87.891 Personal history of nicotine dependence; Z74.01 Bed confinement status
CPT/HCPCS: 36415; 36416; 71045; 80048; 80053; 80202; 82550; 82553; 83735; 83880; 84100; 84145; 84484; 85025; 87040; 87086; 87149; 93005; 93306; 94640; 94660; 94667; 94668; 96365; 96372; 96375; C9113; J0692; J1644; J1650; J1940; J2060; J2270; J2920; J3370; J3490; J7050; J7620